=== PATIENT | female | born 1935 | race Caucasian/White ===

== ENCOUNTER 2017-12-12 09:53 | Day surgery (SDC) | payer OTHER ==
[2017-12-12] MEDS ORDERED: LIDOCAINE 2% MPF 5 ML VIAL ONE (10:18)
[2017-12-12] MEDS ORDERED: PHENYLEPHRINE 10% OPTH 5ML ONE (10:18)
[2017-12-12] MEDS ORDERED: CYCLOPENTOLATE 1% OPTH 2 ML ONE (10:18)
[2017-12-12] MEDS ORDERED: TETRACAINE HCL 0.5% 2ML OPTH ONE (10:18)
[2017-12-12] MEDS ORDERED: NA CHLORIDE 0.9% 500 ML ONE (10:18)
[2017-12-12] MEDS ORDERED: BUPIVACAINE 0.25% PF 10 ML VIAL ONE (10:18)
[2017-12-12] MEDS ORDERED: EPINEPHRINE/PF 1 MG/ML AMP ONE ×2 (10:33→13:04)
[2017-12-12] MEDS ORDERED: NS 0.9% VIAL 10 ML ONE (10:33)
[2017-12-12] MEDS ORDERED: MOXIFLOXACIN HCL 10 DROPS/ML **OR USE OPTH ONE (10:34)
[2017-12-12] MEDS ORDERED: DUOVISC 1 KIT OPTH ONE (10:34)
[2017-12-12] MEDS ORDERED: BSS PLUS 500 ML BOTTLE IRR ONE (10:34)
[2017-12-12] MEDS ORDERED: PHENYLEPHRINE 10% OPTH 5ML OPTH ONE ×2 (10:38→10:43)
[2017-12-12] MEDS ORDERED: CYCLOPENTOLATE 1% OPTH 2 ML OPTH ONE ×2 (10:38→10:43)
[2017-12-12] MEDS ORDERED: PROPOFOL 200 MG/20 ML VIAL IV ONE (10:51)
--- NOTE | 2017-12-12 12:04 | P.BOP ---
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
--- NOTE | 2017-12-12 22:43 | OP ---
Date of Procedure: 12/12/2017 Surgeon: Dolly Chew MD Anesthesiologist: 1. Bennie Flores CRNA. 2. Romain Puente M.D. Preoperative Diagnoses: Nuclear sclerotic cataract and Fuchs dystrophy, left eye. Operation Performed: Phacoemulsification with intraocular lens implant, left eye. Anesthesia: Per cataract surgery. Complications: None. Description Of Procedure: In day surgery, the patient was prepped with Betadine and draped. A conjunctival incision was made in the inferior nasal quadrant with Jayden scissors. A sub-Tenon block consisting of a 1:1 mixture of 2% Xylocaine and 0.25% bupivacaine was placed through the conjunctival incision with a blunt cannula. A Honan balloon was placed over the eye and the patient was transferred to the operating room. In the operating room the patient was prepped and draped in the usual sterile fashion for ophthalmic surgery. A lid speculum was placed in the left eye. Two paracentesis sites were made superiorly and inferiorly in the limbal cornea. Viscoat was placed in the anterior chamber and a crescent blade was used to make a corneal groove and tunnel, and a keratome was used to enter the anterior chamber. Provisc was placed in the anterior chamber and a 360 degree capsulotomy was performed with a cystitome. The lens was hydrodissected with BSS and rotated freely. The lens was removed with a stop and chop technique. 13.65 phaco CDE was used to remove the lens. Residual cortex was removed with the irrigation and aspiration. Provisc was placed in the capsular bag. A ZCB00 +23.0 diopter lens was placed in the capsular bag without complications. Irrigation and aspiration was used to remove residual viscoelastic. The paracentesis sites were hydrated with BSS. The wound and paracentesis sites were inspected and found to be watertight. Vigamox 0.07 cc was placed intracamerally at the end of the procedure. The eye was irrigated with balanced salt solution. The eye was patched with a soft cotton patch and Noel metal shield. The patient was returned to day surgery in good condition. Comments: Scleral incision was created after incising the temporal conjunctiva with Jayden scissors. 1:5000 preservative-free epinephrine was placed in the anterior chamber prior to Viscoat. BSS Plus was used. The conjunctiva was reapproximated with cautery at the end of the procedure. Discharge Instructions: Ms. Murillo is discharged to home in good condition and is to follow up with Dr. Chew in the morning. GATO/ASHU Voice ID: [id number] Report ID: [id number] MTDD
== END 2017-12-12 12:50 | disposition home or self-care (01) ==
LOC: OR 09:53
PROVIDERS: ATTEND Ophthalmology Retina Specialist
PROC: 08RK3JZ Replacement of Left Lens with Synthetic Substitute, Percutaneous Approach (ICD-10-PCS; principal; 2017-12-12 10:30)
DX: H25.12 Age-related nuclear cataract, left eye (principal); H18.51 Endothelial corneal dystrophy; H40.10X0 Unspecified open-angle glaucoma, stage unspecified
CPT/HCPCS: 66984; J0171 ×2

== ENCOUNTER 2018-01-23 06:58 | Day surgery (SDC) | payer OTHER ==
[2018-01-23] MEDS ORDERED: TETRACAINE HCL 0.5% 2ML OPTH ONE (07:06)
[2018-01-23] MEDS ORDERED: BUPIVACAINE 0.25% PF 10 ML VIAL ONE (07:06)
[2018-01-23] MEDS ORDERED: CYCLOPENTOLATE 1% OPTH 2 ML ONE (07:06)
[2018-01-23] MEDS ORDERED: NA CHLORIDE 0.9% 500 ML ONE (07:06)
[2018-01-23] MEDS ORDERED: PHENYLEPHRINE 10% OPTH 5ML ONE (07:06)
[2018-01-23] MEDS ORDERED: LIDOCAINE 1% MPF 5 ML VIAL ONE ×2 (07:12→07:17)
[2018-01-23] MEDS ORDERED: PHENYLEPHRINE 10% OPTH 5ML OPTH ONE ×2 (07:24→07:34)
[2018-01-23] MEDS ORDERED: CYCLOPENTOLATE 1% OPTH 2 ML OPTH ONE ×2 (07:24→07:34)
[2018-01-23] MEDS ORDERED: NS 0.9% VIAL 10 ML ONE (07:59)
[2018-01-23] MEDS ORDERED: DUOVISC 1 KIT OPTH ONE (08:02)
[2018-01-23] MEDS ORDERED: MOXIFLOXACIN HCL 10 DROPS/ML **OR USE OPTH ONE (08:02)
[2018-01-23] MEDS ORDERED: LIDOCAINE 2% INJ, MPF 2 ML 3 ML ONE (08:10)
[2018-01-23] MEDS ORDERED: LIDOCAINE 2% INJ, MPF 2 ML 2 ML ONE (08:13)
[2018-01-23] MEDS ORDERED: PROPOFOL 200 MG/20 ML VIAL IV ONE (08:13)
[2018-01-23] MEDS: EPINEPHRINE/PF 1 MG/ML AMP ONE ×2 (08:16→08:30)
[2018-01-23] MEDS ORDERED: BSS PLUS 500 ML BOTTLE IRR ONE (08:35)
--- NOTE | 2018-01-23 09:00 | P.BOP ---
Preoperative diagnosis: Nuclear sclerotic cataract and Fuch's dystrophy OD Postoperative diagnosis: Same Primary procedure: Phacoemulsification with IOL OD Estimated blood loss: None Anesthesia: Local (Subtenon's infusion with anesthesia for cataract surgery.) Complications: None Implants: ZCB00 +23.0 Transferred to: Other (Day surgery) Condition: Good
--- NOTE | 2018-01-23 20:37 | OP ---
Date of Procedure: 01/23/2018 Surgeon: Dolly Chew MD Anesthesiologist: 1. Roxy Carlos CRNA. 2. Romain Puente M.D. Preoperative Diagnosis: Nuclear sclerotic cataract, and Fuchs dystrophy, OD ( right eye). Operation Performed: Phacoemulsification with intraocular lens implant, right eye. Anesthesia: Per cataract surgery. Complications: None. Description Of Procedure: In day surgery, the patient was prepped with Betadine and draped. A conjunctival incision was made in the inferior nasal quadrant with Jayden scissors. A sub-Tenon block consisting of a 1:1 mixture of 2% Xylocaine and 0.25% bupivacaine was placed through the conjunctival incision with a blunt cannula. A Honan balloon was placed over the eye and the patient was transferred to the operating room. In the operating room the patient was prepped and draped in the usual sterile fashion for ophthalmic surgery. A lid speculum was placed in the right eye. Two paracentesis sites were made superiorly and inferiorly in the limbal cornea. Viscoat was placed in the anterior chamber and a crescent blade was used to make a corneal groove and tunnel, and a keratome was used to enter the anterior chamber. Provisc was placed in the anterior chamber and a 360 degree capsulotomy was performed with a cystitome. The lens was hydrodissected with BSS and rotated freely. The lens was removed with a stop and chop technique. 10.35 phaco CDE was used to remove the lens. Residual cortex was removed with the irrigation and aspiration. Provisc was placed in the capsular bag. A ZCB00 +23.0 lens was placed in the capsular bag without complications. Irrigation and aspiration were used to remove residual viscoelastic. The paracentesis sites were hydrated with BSS. The wound and paracentesis sites were inspected and found to be watertight. Vigamox 0.07 cc was placed intracamerally at the end of the procedure. The eye was irrigated with balanced salt solution. The eye was patched with a soft cotton patch and Noel metal shield. The patient was returned to day surgery in good condition. Comments: A conjunctival incision was created with Jayden scissors. Bipolar cautery was used for hemostasis. A scleral incision was created with a crescent blade. BSS Plus was used, 1:5000 preservative-free epinephrine was used prior to Viscoat. Extra Viscoat was used. Discharge Instructions: Ms. Murillo is discharged to home in good condition and is to follow up with Dr. Chew this afternoon. GATO/ASHU Voice ID: [id number] Report ID: [id number] MTDD
== END 2018-01-23 09:38 | disposition home or self-care (01) ==
LOC: OR 06:58
PROVIDERS: ATTEND Ophthalmology Retina Specialist
PROC: 08RJ3JZ Replacement of Right Lens with Synthetic Substitute, Percutaneous Approach (ICD-10-PCS; principal; 2018-01-23 08:30)
DX: H25.11 Age-related nuclear cataract, right eye (principal); H18.51 Endothelial corneal dystrophy; H40.10X0 Unspecified open-angle glaucoma, stage unspecified
CPT/HCPCS: 36415; 66984; 84132; J0171; J3490 ×2

== ENCOUNTER 2018-10-02 08:18 | Emergency (ER) | payer OTHER ==
--- NOTE | 2018-10-02 08:44 | EKG ---
Test Date: 2018-10-02 Test Time: 08:28:11 Reeling Operator: EFFIE MEASUREMENT RESULTS: Intervals: Rate: 73 MA: 182 QRSD: 108 QT: 378 QTc: 416 Liberty: P: 49 MA: 182 QRS: -48 T: 39 INTERPRETIVE STATEMENTS: Normal sinus rhythm Incomplete right bundle branch block Left anterior fascicular block Moderate voltage criteria for LVH, may be normal variant Abnormal ECG No previous ECG available for comparison Electronically Signed On 10-02-18 08:44:15 CDT by Jonah Puga
[2018-10-02 08:50] LABS: Absolute Monocytes 0.3 K/uL (0.1-1.3); Absolute Neutrophil 1.8 K/uL (1.8-8.0); Basophils % 1.1 % (0-1.3); Eosinophils % 4.1 % (0-4.4); Hematocrit 36.2 % (36.0-45.0); Lymphocytes % 30.6 % (15.3-44.8); MPV 8.5 fL (7.6-11.3); Monocytes % 9.2 % (3.3-12.3); Protime INR 1.01; RBC Red Blood Cell Count 3.95 M/uL (3.86-4.86)
--- NOTE | 2018-10-02 08:50 | RAD REPORT ---
EXAM DESCRIPTION: CT - Ct Stroke Brain Wo Cont - 10/02/2018 8:43 am CLINICAL HISTORY: dizziness, tingling to right side of lips that has resolved CVA symptomology COMPARISON: No comparisons TECHNIQUE: All CT scans are performed using dose optimization technique as appropriate and may inclu de automated exposure control or mA/KV adjustment according to patient size. FINDINGS: No intracranial hemorrhage, hydrocephalus or extra-axial fluid collection.Moderate brain a trophyNo areas of brain edema or evidence of midline shift. The paranasal sinuses and mastoids are clear. The calvarium is intact. IMPRESSION: No acute intracranial abnormality. The findings were discussed with Vivien in the ER on 10/02/2018 at 8:45 am by telephone.
[2018-10-02] MEDS ORDERED: NA CHLORIDE 0.9% 500 ML ONE (09:00)
[2018-10-02] MEDS ORDERED: NA CHLORIDE 0.9% 1,000 ML ONE (09:00)
[2018-10-02] MEDS ORDERED: FOLIC ACID 5 MG/ML VIAL ONE (09:01)
--- NOTE | 2018-10-02 09:03 | RAD REPORT ---
EXAM DESCRIPTION: RAD - Chest Single View - 10/02/2018 8:54 am CLINICAL HISTORY: COUGH Chest pain. COMPARISON: No comparisons FINDINGS: Portable technique limits examination quality. The lungs are grossly clear. The heart is mildly enlarged in size. No displaced fractures. IMPRESSION: No acute intrathoracic process suspected.
[2018-10-02 09:06] LABS: ALT/SGPT 16 U/L (12-78); AST/SGOT 13 U/L (15-37); Albumin 3.6 g/dL (3.4-5.0); Alkaline Phosphatase 111 U/L (45-117); BUN Blood Urea Nitrogen 15 mg/dL (7-18); Bicarbonate 28 mmol/L (21-32); Bilirubin Direct < 0.1 mg/dL (0-0.2); Bilirubin Total 0.3 mg/dL (0.2-1.0); Glucose Level 152 mg/dL (74-106); Lipase 209 U/L (73-393); NT PRO-BNP 109 pg/mL (<450); Potassium 3.7 mmol/L (3.5-5.1); Protein, Total 6.6 g/dL (6.4-8.2); Sodium Level 141 mmol/L (136-145); Troponin (Emerg Dept Use Only) < 0.02 ng/mL (0.0-0.045)
[2018-10-02] MEDS ORDERED: ALTEPLASE 100 ML IV ONE (09:32)
[2018-10-02] MEDS ORDERED: NA CHLORIDE 0.9% 100 ML IV ONE (09:34)
--- NOTE | 2018-10-02 09:42 | ER ---
Nurse's Notes [facility] Name: Lina Murillo Age: 83 yrs Sex: Female : 1935 Arrival Date: 10/02/2018 Time: 08:23 Bed 8 Private MD: Diagnosis: Cerebral infarction;Dizziness and giddiness;Essential (primary) hypertension Presentation: 10/02 08:23 Presenting complaint: Patient states: "Around 7:30 am I was sitting down eating aa5 breakfast when I started feeling weak all over, nauseated, dizzy, the right side of my lips were tingling, and I had the shakes so I drank some orange juice but I still feel dizzy". Pt only c/o dizziness at this times. EMS reports BP 208/83. 08:23 Transition of care: patient was not received from another setting of care. Onset of aa5 symptoms was October 02, 2018. Risk Assessment: Do you want to hurt yourself or someone else? Patient reports no desire to harm self or others. Initial Sepsis Screen: Does the patient meet any 2 criteria? No. Patient's initial sepsis screen is negative. Does the patient have a suspected source of infection? No. Patient's initial sepsis screen is negative. Care prior to arrival: IV initiated. 18 GA, in the right antecubital area, Glucose check: 140. 08:23 Acuity: ESTEFANY 2 aa5 08:23 Method Of Arrival: EMS: [facility] aa5 08:30 An acute neurological deficit is present. The patients blood glucose was checked before aa5 arriving to the hospital and was found to be normal. Triage Assessment: 08:23 The onset of the patients symptoms was October 02, 2018 at 07:30. aa5 Stroke Activation: Symptom onset < 3 hours Physician: Stroke Attending; Name: ; Notified At: ; Arrived At: Physician: Chief Stroke Resident; Name: ; Notified At: ; Arrived At: Physician: Stroke Resident; Name: ; Notified At: ; Arrived At: Physician: ED Attending; Name: ; Notified At: ; Arrived At: Physician: ED Resident; Name: ; Notified At: ; Arrived At: Historical: - Allergies: 08:23 No Known Allergies; aa5 - PMHx: 08:23 None; aa5 - Immunization history:: Adult Immunizations unknown. - Social history:: Smoking status: Patient/guardian denies using tobacco. - Ebola Screening: : No symptoms or risks identified at this time. - Family history:: not pertinent. Screenin:33 Abuse screen: Denies threats or abuse. Nutritional screening: No deficits noted. aa5 Tuberculosis screening: No symptoms or risk factors identified. Fall Risk IV access (20 points). Total Myers Fall Scale indicates No Risk (0-24 pts). Assessment: 08:23 VAN Scoring: Arm Drift: Patients demonstrates NO arm weakness. Patient is VAN Negative. aa5 08:23 General: Appears comfortable, Behavior is calm, cooperative. Pain: Denies pain. Neuro: aa5 Level of Consciousness is awake, alert, obeys commands, Oriented to person, place, time, situation, Plugger are equal bilaterally Moves all extremities. Speech is normal, Facial symmetry appears normal, Pupils are PERRLA, Reports dizziness. Pt currently denies numbness, denies tingling, denies headache. . Cardiovascular: Heart tones S1 S2 present Rhythm is regular. Respiratory: Airway is patent Respiratory effort is even, unlabored, Respiratory pattern is regular, symmetrical. GI: Patient currently denies nausea, vomiting. : No signs and/or symptoms were reported regarding the genitourinary system. EENT: No signs and/or symptoms were reported regarding the EENT system. Derm: Skin is pink, warm \\T\\ dry. Musculoskeletal: Range of motion: intact in all extremities. 08:33 Reassessment: PT SPEECH ACUTELY SLURRED, CODE STROKE ACTIVATED. bp 08:35 Reassessment: Pt taken to CT via stretcher accompanied by me. Speech is clear at this aa5 time. . 08:45 Reassessment: Pt back from CT. X-ray at bedside . aa5 08:45 Reassessment: Patient is alert, oriented x 3, equal unlabored respirations, skin aa5 warm/dry/pink. 08:50 Patient has been NPO before screening. The patient is alert, and able to follow aa5 commands. slurred speech has resolved. The patient is not exhibiting difficulty speaking. The patient does not exhibit difficulty understanding words. The patient is able to swallow own secretions with no drooling or need for suction. Patient tolerated one teaspoon of water. No drooling, immediate coughing, gurgling, or clearing of the throat was noted. The patient tolerated 90mL of water. No drooling, immediate coughing, gurgling, or clearing of the throat was noted. The patient passed the bedside swallow screening. Oral medications may be given as ordered. Contact Physician for further diet orders. Provider notified of bedside swallow screening results: Romie Cardozo MD. 09:00 Reassessment: Dr. Cardozo at bedside. . aa5 09:00 T-PA (Activase) Screening: Indications: No evidence of intracranial hemorrhage or CT of aa5 head and no evidence of peripheral hemorrhage or recent CVA: Yes. 09:15 Reassessment: Attempted to ambulate pt per MD. Pt with unsteady gait, only able to aa5 ambulate a few steps. Pt placed back in bed. MD was notified. . 09:30 Reassessment: BP > 190 systolic, TPA on hold per MD. Attempting to lower BP before aa5 administration. . 09:40 Reassessment: Consent fot TPA administration signed by pt's daughter . aa5 10:00 Reassessment: Patient is alert, oriented x 3, equal unlabored respirations, skin aa5 warm/dry/pink. Patient states feeling better. Pt reports dizziness has improved . 10:11 Reassessment: Report given to life flight . aa5 10:11 Reassessment: Pt left ER before MRI and US could be completed, MD notified . aa5 Vital Signs: 08:25 BP 189 / 95; Pulse 79; Resp 18 S; Temp 98.3(O); Pulse Ox 97% on R/A; Weight 58.06 kg aa5 (R); Height 5 ft. 4 in. (162.56 cm) (R); Pain 0/10; 08:48 BP 186 / 82; Pulse 83; Resp 16 S; Pulse Ox 98% on R/A; aa5 09:00 BP 203 / 90; Pulse 77; Resp 16; Pulse Ox 98% on R/A; aa5 09:10 BP 192 / 75; Pulse 70; Resp 18 S; Pulse Ox 100% on R/A; aa5 09:15 Weight 58 kg (M); aa5 09:25 BP 204 / 85; Pulse 62; Resp 16 S; Pulse Ox 98% on R/A; aa5 09:35 BP 185 / 66; Pulse 67; Resp 18 S; Pulse Ox 98% on R/A; aa5 09:40 BP 182 / 65; Pulse 68; Resp 16; Pulse Ox 98% on R/A; aa5 09:50 BP 170 / 98; Pulse 64; Resp 18; Pulse Ox 99% on R/A; aa5 09:58 BP 199 / 77; Pulse 63; Resp 16 S; Pulse Ox 99% on R/A; aa5 10:06 BP 183 / 67; Pulse 60; Resp 16 S; Pulse Ox 97% on R/A; aa5 10:12 BP 188 / 81; Pulse 60; Resp 16 S; Pulse Ox 98% on R/A; aa5 09:15 Body Mass Index 21.95 (58.00 kg, 162.56 cm) aa5 09:40 BP decreased, Dr. Cardozo notified and order to admister TPA now. aa5 09:58 notified of increasing BP, see MAR for order. aa5 NIH Stroke Scale Scores: 08:23 NIHSS Score: 0 aa5 08:45 NIHSS Score: 0 aa5 09:15 NIHSS Score: 2 aa5 09:39 NIHSS Score: 4 marie 10:00 NIHSS Score: 0 aa5 ED Course: 08:23 Patient arrived in ED. bp 08:23 Arm band placed on Patient placed in an exam room, on a stretcher. aa5 08:23 Patient has correct armband on for positive identification. Placed in gown. Bed in low aa5 position. Call light in reach. Side rails up X2. product line manager on. Pulse ox on. NIBP on. 08:23 Maintain EMS IV. Dressing intact. Good blood return noted. Site clean \\T\\ dry. Gauge \\T\\ bp site: 18 GAUGE R AC. 08:25 Romie Cardozo MD is Attending Physician. marie 08:26 Irina Roche, RN is Primary Nurse. aa5 08:28 EKG done, by technical product manager. reviewed by Romie Cardozo MD. at1 08:29 Triage completed. aa5 08:33 Initial lab(s) drawn, by ED staff, sent to lab. aa5 08:43 CT Stroke Brain w/o Contrast In Process Unspecified. EDMS 08:51 X-ray completed. Portable x-ray completed in exam room. Patient tolerated procedure sw well. 08:52 XRAY Chest (1 view) In Process Unspecified. EDMS 09:53 Inserted saline lock: 20 gauge in left antecubital area, using aseptic technique. em1 10:17 No provider procedures requiring assistance completed. Patient transferred, IV remains aa5 in place. Administered Medications: 08:45 Drug: NS 0.9% 500 ml Route: IV; Rate: bolus; Site: right antecubital; bp 09:15 Follow up: IV Status: Completed infusion; IV Intake: 500ml aa5 08:45 Drug: NS 0.9% 1000 ml Route: IV; Rate: 125 ml/hr; Site: right antecubital; bp 10:20 Follow up: IV Status: Infusion continued upon transfer aa5 08:45 Drug: foLIC Acid 1 mg Route: IVPB; Site: right antecubital; bp 09:23 CANCELLED (Duplicate Order): Aspirin Chewable Tablet 162 mg PO once marie 09:32 Drug: Trandate 10 mg Route: IVP; Site: right antecubital; aa5 09:40 Follow up: Response: No adverse reaction; No adverse reaction. BP decreased. aa5 09:35 Drug: Pepcid 20 mg Route: IVP; Site: right antecubital; aa5 09:45 Follow up: Response: No adverse reaction aa5 09:42 Drug: ACTIvase {Co-Signature: bp (Jeffery Jenkins RN).} {Note: to right AC. Administered aa5 5.2mg as bolus and 47mg infused over 1 hr. .} Route: IV Thrombolytics; Rate: calculated rate; Infused Over: 60 mins; 10:12 Follow up: Response: No adverse reaction; No adverse reaction. Infusion continued upon aa5 transfer 09:53 Not Given (Physician Discretion): Trandate 20 mg IVP once; Over 2 minutes aa5 10:01 Drug: Labetalol 10 mg Route: IVP; Site: left antecubital; aa5 10:06 Follow up: Response: No adverse reaction; No adverse reaction. BP decreased. aa5 Point of Care Testing: Blood Glucose: 08:35 Blood Glucose: 190 mg/dL; aa5 Ranges: Intake: 09:15 IV: 500ml; Total: 500ml. aa5 Outcome: 09:41 ER care complete, transfer ordered by . [facility] 10:17 Transferred by helicopter to [facility], Transfer form completed. aa5 X-rays sent w/ patient. 10:17 Condition: stable 10:17 Discharge instructions given to patient, family, Instructed on the need for transfer, Demonstrated understanding of instructions. 10:20 Patient left the ED. aa5 NIH Stroke Scale - NIH Stroke Score Date: 10/02/2018 Time: 08:23 Total Score = 0 1a. Level of Consciousness (LOC) - 0(Alert) 1b. Level of Consciousness (LOC) (Year \\T\\ Age) - 0(Both) 1c. LOC Commands (Open \\T\\ Closes Eyes/Multi Purpose Machine Operator) - 0(Both) 2. Best Gaze (Lateral Gaze Paresis) - 0(Normal) 3. Visual Field Loss - 0(No visual loss) 4. Facial Palsy - 0(Normal) 5a. Left Arm: Motor (10-second hold) - 0(No drift) 5b. Right Arm: Motor (10-second hold) - 0(No drift) 6a. Left Leg: Motor (5-second hold - always test supine) - 0(No drift) 6b. Right Leg: Motor (5-second hold - always test supine) - 0(No drift) 7. Limb Ataxia (finger/nose \\T\\ heel/morales - test with eyes open) - 0(Absent) 8. Sensory Loss (pinprick arms/legs/face) - 0(Normal) 9. Best Language: Aphasia (description/naming/reading) - 0(No aphasia) 10. Dysarthria (speech clarity - read or repeat words) - 0(Normal) 11. Extinction and Inattention (visual/tactile/auditory/spatial/personal) - 0(No abnormality) Initials: aa5 NIH Stroke Scale - NIH Stroke Score Date: 10/02/2018 Time: 08:45 Total Score = 0 1a. Level of Consciousness (LOC) - 0(Alert) 1b. Level of Consciousness (LOC) (Year \\T\\ Age) - 0(Both) 1c. LOC Commands (Open \\T\\ Closes Eyes/Multi Purpose Machine Operator) - 0(Both) 2. Best Gaze (Lateral Gaze Paresis) - 0(Normal) 3. Visual Field Loss - 0(No visual loss) 4. Facial Palsy - 0(Normal) 5a. Left Arm: Motor (10-second hold) - 0(No drift) 5b. Right Arm: Motor (10-second hold) - 0(No drift) 6a. Left Leg: Motor (5-second hold - always test supine) - 0(No drift) 6b. Right Leg: Motor (5-second hold - always test supine) - 0(No drift) 7. Limb Ataxia (finger/nose \\T\\ heel/morales - test with eyes open) - 0(Absent) 8. Sensory Loss (pinprick arms/legs/face) - 0(Normal) 9. Best Language: Aphasia (description/naming/reading) - 0(No aphasia) 10. Dysarthria (speech clarity - read or repeat words) - 0(Normal) 11. Extinction and Inattention (visual/tactile/auditory/spatial/personal) - 0(No abnormality) Initials: aa5 NIH Stroke Scale - NIH Stroke Score Date: 10/02/2018 Time: 09:15 Total Score = 2 1a. Level of Consciousness (LOC) - 0(Alert) 1b. Level of Consciousness (LOC) (Year \\T\\ Age) - 0(Both) 1c. LOC Commands (Open \\T\\ Closes Eyes/Multi Purpose Machine Operator) - 0(Both) 2. Best Gaze (Lateral Gaze Paresis) - 0(Normal) 3. Visual Field Loss - 0(No visual loss) 4. Facial Palsy - 0(Normal) 5a. Left Arm: Motor (10-second hold) - 0(No drift) 5b. Right Arm: Motor (10-second hold) - 0(No drift) 6a. Left Leg: Motor (5-second hold - always test supine) - 0(No drift) 6b. Right Leg: Motor (5-second hold - always test supine) - 0(No drift) 7. Limb Ataxia (finger/nose \\T\\ heel/morales - test with eyes open) - 2(Present in two limbs) 8. Sensory Loss (pinprick arms/legs/face) - 0(Normal) 9. Best Language: Aphasia (description/naming/reading) - 0(No aphasia) 10. Dysarthria (speech clarity - read or repeat words) - 0(Normal) 11. Extinction and Inattention (visual/tactile/auditory/spatial/personal) - 0(No abnormality) Initials: aa5 NIH Stroke Scale - NIH Stroke Score Date: 10/02/2018 Time: 09:39 Total Score = 4 1a. Level of Consciousness (LOC) - 0(Alert) 1b. Level of Consciousness (LOC) (Year \\T\\ Age) - 0(Both) 1c. LOC Commands (Open \\T\\ Closes Eyes/Multi Purpose Machine Operator) - 0(Both) 2. Best Gaze (Lateral Gaze Paresis) - 0(Normal) 3. Visual Field Loss - 0(No visual loss) 4. Facial Palsy - 0(Normal) 5a. Left Arm: Motor (10-second hold) - 1(Drift) 5b. Right Arm: Motor (10-second hold) - 0(No drift) 6a. Left Leg: Motor (5-second hold - always test supine) - 1(Drift) 6b. Right Leg: Motor (5-second hold - always test supine) - 0(No drift) 7. Limb Ataxia (finger/nose \\T\\ heel/morales - test with eyes open) - 2(Present in two limbs) 8. Sensory Loss (pinprick arms/legs/face) - 0(Normal) 9. Best Language: Aphasia (description/naming/reading) - 0(No aphasia) 10. Dysarthria (speech clarity - read or repeat words) - 0(Normal) 11. Extinction and Inattention (visual/tactile/auditory/spatial/personal) - 0(No abnormality) Initials: [facility] NIH Stroke Scale - NIH Stroke Score Date: 10/02/2018 Time: 10:00 Total Score = 0 1a. Level of Consciousness (LOC) - 0(Alert) 1b. Level of Consciousness (LOC) (Year \\T\\ Age) - 0(Both) 1c. LOC Commands (Open \\T\\ Closes Eyes/Multi Purpose Machine Operator) - 0(Both) 2. Best Gaze (Lateral Gaze Paresis) - 0(Normal) 3. Visual Field Loss - 0(No visual loss) 4. Facial Palsy - 0(Normal) 5a. Left Arm: Motor (10-second hold) - 0(No drift) 5b. Right Arm: Motor (10-second hold) - 0(No drift) 6a. Left Leg: Motor (5-second hold - always test supine) - 0(No drift) 6b. Right Leg: Motor (5-second hold - always test supine) - 0(No drift) 7. Limb Ataxia (finger/nose \\T\\ heel/morales - test with eyes open) - 0(Absent) 8. Sensory Loss (pinprick arms/legs/face) - 0(Normal) 9. Best Language: Aphasia (description/naming/reading) - 0(No aphasia) 10. Dysarthria (speech clarity - read or repeat words) - 0(Normal) 11. Extinction and Inattention (visual/tactile/auditory/spatial/personal) - 0(No abnormality) Initials: aa5 Signatures: Dispatcher [employer] EDMS Romie Cardozo MD MD cha Martinez, Joel em1 Irina Roche, RN RN aa5 Nicole Stack, design studio consultant EKG Tat1 Jessika Amos Brian, RN RN bp Jeffery Jenkins RN bp Corrections: (The following items were deleted from the chart) 08:32 08:23 Presenting complaint: Patient states: "I was sitting down eating aa5 breakfast when I started feeling weak all over, nauseated, dizzy, the right side of my lips were tingling, and I had the shakes so I drank some orange juice but I still feel dizzy". Pt only c/o dizziness at this times. aa5 08:23 Care prior to arrival: None. aa5 08:42 08:23 Presenting complaint: Patient states: "I was sitting down eating aa5 breakfast when I started feeling weak all over, nauseated, dizzy, the right side of my lips were tingling, and I had the shakes so I drank some orange juice but I still feel dizzy". Pt only c/o dizziness at this times. EMS reports BP 208/83 aa5 08:48 08:41 Blood Glucose: Blood Glucose Sdlrbhb=265 mg/dL. bp aa5 08:49 08:35 Reassessment: Pt taken to CT via stretcher accompanied by me . aa5 09:49 03:20 Trandate 10 mg IVP in right antecubital aa5 10:28 10:20 BP 192 / 75; Pulse 70bpm; Resp 18bpm; Spontaneous; Pulse Ox 100% RA; aa5 10:32 10:31 Patient left the ED. aa5
--- NOTE | 2018-10-02 09:42 | EDPHYS ---
Physician Documentation [facility] Name: Lina Murillo Age: 83 yrs Sex: Female : 1935 Arrival Date: 10/02/2018 Time: 08:23 Bed 8 Private MD: ED Physician Romie Cardozo HPI: 10/02 09:14 This 83 yrs old Female presents to ER via EMS with complaints of Dizziness, marie General Weakness. 09:14 The patient presents with dizziness, lightheadedness, feeling off balance, sense of marie spinning. Onset: The symptoms/episode began/occurred 2 hour(s) ago. Context: occurred at home. Modifying factors: The symptoms are alleviated by nothing, the symptoms are aggravated by nothing. Associated signs and symptoms: Pertinent positives: ataxia, nausea, tingling. Severity of symptoms: At their worst the symptoms were moderate in the emergency department the symptoms have improved moderately. Patient's baseline: Neuro: alert and fully oriented. The patient has not experienced similar symptoms in the past. Historical: - Allergies: 08:23 No Known Allergies; aa5 - PMHx: 08:23 None; aa5 - Immunization history:: Adult Immunizations unknown. - Social history:: Smoking status: Patient/guardian denies using tobacco. - Ebola Screening: : No symptoms or risks identified at this time. - Family history:: not pertinent. ROS: 09:14 Constitutional: Negative for fever, chills, and weight loss, Eyes: Negative for injury, marie pain, redness, and discharge, ENT: Negative for injury, pain, and discharge, Neck: Negative for injury, pain, and swelling, Cardiovascular: Negative for chest pain, palpitations, and edema, Respiratory: Negative for shortness of breath, cough, wheezing, and pleuritic chest pain, Abdomen/GI: Negative for abdominal pain, nausea, vomiting, diarrhea, and constipation, Back: Negative for injury and pain, : Negative for injury, bleeding, discharge, and swelling, MS/Extremity: Negative for injury and deformity, Skin: Negative for injury, rash, and discoloration, Psych: Negative for depression, anxiety, suicide ideation, homicidal ideation, and hallucinations, Allergy/Immunology: Negative for hives, rash, and allergies, Endocrine: Negative for neck swelling, polydipsia, polyuria, polyphagia, and marked weight changes, Hematologic/Lymphatic: Negative for swollen nodes, abnormal bleeding, and unusual bruising. 09:14 Neuro: Positive for dizziness, gait disturbance, speech changes. Exam: 09:14 Constitutional: This is a well developed, well nourished patient who is awake, alert, marie and in no acute distress. Head/Face: Normocephalic, atraumatic. Eyes: Pupils equal round and reactive to light, extra-ocular motions intact. Lids and lashes normal. Conjunctiva and sclera are non-icteric and not injected. Cornea within normal limits. Periorbital areas with no swelling, redness, or edema. ENT: Nares patent. No nasal discharge, no septal abnormalities noted. Tympanic membranes are normal and external auditory canals are clear. Oropharynx with no redness, swelling, or masses, exudates, or evidence of obstruction, uvula midline. Mucous membranes moist. Neck: Trachea midline, no thyromegaly or masses palpated, and no cervical lymphadenopathy. Supple, full range of motion without nuchal rigidity, or vertebral point tenderness. No Meningismus. Chest/axilla: Normal chest wall appearance and motion. Nontender with no deformity. No lesions are appreciated. Cardiovascular: Regular rate and rhythm with a normal S1 and S2. No gallops, murmurs, or rubs. Normal PMI, no JVD. No pulse deficits. Respiratory: Lungs have equal breath sounds bilaterally, clear to auscultation and percussion. No rales, rhonchi or wheezes noted. No increased work of breathing, no retractions or nasal flaring. Abdomen/GI: Soft, non-tender, with normal bowel sounds. No distension or tympany. No guarding or rebound. No evidence of tenderness throughout. Back: No spinal tenderness. No costovertebral tenderness. Full range of motion. Skin: Warm, dry with normal turgor. Normal color with no rashes, no lesions, and no evidence of cellulitis. MS/ Extremity: Pulses equal, no cyanosis. Neurovascular intact. Full, normal range of motion. Neuro: Awake and alert, GCS 15, oriented to person, place, time, and situation. Cranial nerves II-XII grossly intact. Motor strength 5/5 in all extremities. Sensory grossly intact. Cerebellar exam normal. Normal gait. Psych: Awake, alert, with orientation to person, place and time. Behavior, mood, and affect are within normal limits. 09:14 Neuro: Orientation: is normal, appropriate for stated age, no acute changes, Mentation: is normal, appropriate for stated age, no acute changes, Memory: is normal, appropriate for stated age, no acute changes, Cranial nerves: grossly normal, is grossly normal based on the patient's age, no acute changes, Cerebellar function: is grossly normal, is grossly normal based on the patient's age, no acute changes, Motor: is normal, Sensation: no obvious gross deficits, appropriate no acute changes, Gait: is unsteady, ataxic, Babinski testing is normal. Vital Signs: 08:25 BP 189 / 95; Pulse 79; Resp 18 S; Temp 98.3(O); Pulse Ox 97% on R/A; Weight 58.06 kg aa5 (R); Height 5 ft. 4 in. (162.56 cm) (R); Pain 0/10; 08:48 BP 186 / 82; Pulse 83; Resp 16 S; Pulse Ox 98% on R/A; aa5 09:00 BP 203 / 90; Pulse 77; Resp 16; Pulse Ox 98% on R/A; aa5 09:10 BP 192 / 75; Pulse 70; Resp 18 S; Pulse Ox 100% on R/A; aa5 09:15 Weight 58 kg (M); aa5 09:25 BP 204 / 85; Pulse 62; Resp 16 S; Pulse Ox 98% on R/A; aa5 09:35 BP 185 / 66; Pulse 67; Resp 18 S; Pulse Ox 98% on R/A; aa5 09:40 BP 182 / 65; Pulse 68; Resp 16; Pulse Ox 98% on R/A; aa5 09:50 BP 170 / 98; Pulse 64; Resp 18; Pulse Ox 99% on R/A; aa5 09:58 BP 199 / 77; Pulse 63; Resp 16 S; Pulse Ox 99% on R/A; aa5 10:06 BP 183 / 67; Pulse 60; Resp 16 S; Pulse Ox 97% on R/A; aa5 10:12 BP 188 / 81; Pulse 60; Resp 16 S; Pulse Ox 98% on R/A; aa5 09:15 Body Mass Index 21.95 (58.00 kg, 162.56 cm) aa5 09:40 BP decreased, Dr. Cardozo notified and order to admister TPA now. aa5 09:58 notified of increasing BP, see MAR for order. aa5 NIH Stroke Scale Scores: 08:23 NIHSS Score: 0 aa5 08:45 NIHSS Score: 0 aa5 09:15 NIHSS Score: 2 aa5 09:39 NIHSS Score: 4 marie 10:00 NIHSS Score: 0 aa5 MDM: 08:25 Patient medically screened. marie 09:16 Data reviewed: vital signs, nurses notes, lab test result(s), EKG, radiologic studies, [facility] CT scan, doppler, MRI. 10/02 08:27 Order name: Basic Metabolic Panel [facility] 10/02 08:27 Order name: CBC with Diff [facility] 10/02 08:27 Order name: LFT's; Complete Time: 09:19 marie 10/02 08:27 Order name: Magnesium; Complete Time: 09:19 [facility] 10/02 08:27 Order name: NT PRO-BNP; Complete Time: 09:19 [facility] 10/02 08:27 Order name: PT-INR; Complete Time: 09:19 [facility] 10/02 08:27 Order name: Troponin (emerg Dept Use Only); Complete Time: 09:19 [facility] 10/02 08:27 Order name: Lipase; Complete Time: 09:19 [facility] 10/02 08:27 Order name: Blood Culture Adult (2) [facility] 10/02 08:27 Order name: Procalcitonin; Complete Time: 09:38 [facility] 10/02 08:27 Order name: Lactate; Complete Time: 09:19 [facility] 10/02 08:28 Order name: Basic Metabolic Panel; Complete Time: 09:19 EDMS 10/02 08:28 Order name: CBC with Automated Diff; Complete Time: 09:06 EDMS 10/02 08:27 Order name: XRAY Chest (1 view); Complete Time: 09:06 marie 10/02 08:27 Order name: EKG; Complete Time: 08:29 [facility] 10/02 08:30 Order name: CT Stroke Brain w/o Contrast; Complete Time: 09:06 aa5 10/02 09:07 Order name: PTT, Activated Partial Thromb; Complete Time: 09:19 EDMS 10/02 08:27 Order name: Cardiac monitoring; Complete Time: 08:28 [facility] 10/02 08:27 Order name: EKG - Nurse/Tech; Complete Time: 08:28 [facility] 10/02 08:27 Order name: IV Saline Lock; Complete Time: 08:28 [facility] 10/02 08:27 Order name: Labs collected and sent; Complete Time: 08:41 [facility] 10/02 08:27 Order name: O2 Per Protocol; Complete Time: 08:28 [facility] 10/02 08:27 Order name: O2 Sat Monitoring; Complete Time: 08:28 [facility] 10/02 08:57 Order name: Accucheck; Complete Time: 08:57 [facility] 10/02 08:57 Order name: NPO; Complete Time: 08:57 [facility] 10/02 08:57 Order name: Stroke Swallow Screen; Complete Time: 08:57 aa Administered Medications: 08:45 Drug: NS 0.9% 500 ml Route: IV; Rate: bolus; Site: right antecubital; bp 09:15 Follow up: IV Status: Completed infusion; IV Intake: 500ml aa 08:45 Drug: NS 0.9% 1000 ml Route: IV; Rate: 125 ml/hr; Site: right antecubital; bp 10:20 Follow up: IV Status: Infusion continued upon transfer aa5 08:45 Drug: foLIC Acid 1 mg Route: IVPB; Site: right antecubital; bp 09:23 CANCELLED (Duplicate Order): Aspirin Chewable Tablet 162 mg PO once [facility] 09:32 Drug: Trandate 10 mg Route: IVP; Site: right antecubital; aa5 09:40 Follow up: Response: No adverse reaction; No adverse reaction. BP decreased. aa5 09:35 Drug: Pepcid 20 mg Route: IVP; Site: right antecubital; aa5 09:45 Follow up: Response: No adverse reaction aa5 09:42 Drug: ACTIvase {Co-Signature: bp (Jeffery Jenkins RN).} {Note: to right AC. Administered aa5 5.2mg as bolus and 47mg infused over 1 hr. .} Route: IV Thrombolytics; Rate: calculated rate; Infused Over: 60 mins; 10:12 Follow up: Response: No adverse reaction; No adverse reaction. Infusion continued upon aa transfer 09:53 Not Given (Physician Discretion): Trandate 20 mg IVP once; Over 2 minutes aa5 10:01 Drug: Labetalol 10 mg Route: IVP; Site: left antecubital; aa5 10:06 Follow up: Response: No adverse reaction; No adverse reaction. BP decreased. aa5 Point of Care Testing: Blood Glucose: 08:35 Blood Glucose: 190 mg/dL; aa5 Ranges: Critical Glucose Levels:Adult <50 mg/dl or >400 mg/dl <40 mg/dl or >180 mg/dl Disposition: 10/02/18 09:41 Transfer ordered to [facility]. Diagnosis are Cerebral infarction, Dizziness and giddiness, Essential (primary) hypertension. - Reason for transfer: Higher level of care. - Accepting physician is to dr slater. - Condition is Fair. - Problem is new. - Symptoms have improved. NIH Stroke Scale - NIH Stroke Score Date: 10/02/2018 Time: 08:23 Total Score = 0 1a. Level of Consciousness (LOC) - 0(Alert) 1b. Level of Consciousness (LOC) (Year \T\ Age) - 0(Both) 1c. LOC Commands (Open \T\ Closes Eyes/Body Maker) - 0(Both) 2. Best Gaze (Lateral Gaze Paresis) - 0(Normal) 3. Visual Field Loss - 0(No visual loss) 4. Facial Palsy - 0(Normal) 5a. Left Arm: Motor (10-second hold) - 0(No drift) 5b. Right Arm: Motor (10-second hold) - 0(No drift) 6a. Left Leg: Motor (5-second hold - always test supine) - 0(No drift) 6b. Right Leg: Motor (5-second hold - always test supine) - 0(No drift) 7. Limb Ataxia (finger/nose \T\ heel/morales - test with eyes open) - 0(Absent) 8. Sensory Loss (pinprick arms/legs/face) - 0(Normal) 9. Best Language: Aphasia (description/naming/reading) - 0(No aphasia) 10. Dysarthria (speech clarity - read or repeat words) - 0(Normal) 11. Extinction and Inattention (visual/tactile/auditory/spatial/personal) - 0(No abnormality) Initials: aa5 NIH Stroke Scale - NIH Stroke Score Date: 10/02/2018 Time: 08:45 Total Score = 0 1a. Level of Consciousness (LOC) - 0(Alert) 1b. Level of Consciousness (LOC) (Year \T\ Age) - 0(Both) 1c. LOC Commands (Open \T\ Closes Eyes/Body Maker) - 0(Both) 2. Best Gaze (Lateral Gaze Paresis) - 0(Normal) 3. Visual Field Loss - 0(No visual loss) 4. Facial Palsy - 0(Normal) 5a. Left Arm: Motor (10-second hold) - 0(No drift) 5b. Right Arm: Motor (10-second hold) - 0(No drift) 6a. Left Leg: Motor (5-second hold - always test supine) - 0(No drift) 6b. Right Leg: Motor (5-second hold - always test supine) - 0(No drift) 7. Limb Ataxia (finger/nose \T\ heel/morales - test with eyes open) - 0(Absent) 8. Sensory Loss (pinprick arms/legs/face) - 0(Normal) 9. Best Language: Aphasia (description/naming/reading) - 0(No aphasia) 10. Dysarthria (speech clarity - read or repeat words) - 0(Normal) 11. Extinction and Inattention (visual/tactile/auditory/spatial/personal) - 0(No abnormality) Initials: aa5 NIH Stroke Scale - NIH Stroke Score Date: 10/02/2018 Time: 09:15 Total Score = 2 1a. Level of Consciousness (LOC) - 0(Alert) 1b. Level of Consciousness (LOC) (Year \T\ Age) - 0(Both) 1c. LOC Commands (Open \T\ Closes Eyes/Body Maker) - 0(Both) 2. Best Gaze (Lateral Gaze Paresis) - 0(Normal) 3. Visual Field Loss - 0(No visual loss) 4. Facial Palsy - 0(Normal) 5a. Left Arm: Motor (10-second hold) - 0(No drift) 5b. Right Arm: Motor (10-second hold) - 0(No drift) 6a. Left Leg: Motor (5-second hold - always test supine) - 0(No drift) 6b. Right Leg: Motor (5-second hold - always test supine) - 0(No drift) 7. Limb Ataxia (finger/nose \T\ heel/morales - test with eyes open) - 2(Present in two limbs) 8. Sensory Loss (pinprick arms/legs/face) - 0(Normal) 9. Best Language: Aphasia (description/naming/reading) - 0(No aphasia) 10. Dysarthria (speech clarity - read or repeat words) - 0(Normal) 11. Extinction and Inattention (visual/tactile/auditory/spatial/personal) - 0(No abnormality) Initials: aa5 NIH Stroke Scale - NIH Stroke Score Date: 10/02/2018 Time: 09:39 Total Score = 4 1a. Level of Consciousness (LOC) - 0(Alert) 1b. Level of Consciousness (LOC) (Year \T\ Age) - 0(Both) 1c. LOC Commands (Open \T\ Closes Eyes/Body Maker) - 0(Both) 2. Best Gaze (Lateral Gaze Paresis) - 0(Normal) 3. Visual Field Loss - 0(No visual loss) 4. Facial Palsy - 0(Normal) 5a. Left Arm: Motor (10-second hold) - 1(Drift) 5b. Right Arm: Motor (10-second hold) - 0(No drift) 6a. Left Leg: Motor (5-second hold - always test supine) - 1(Drift) 6b. Right Leg: Motor (5-second hold - always test supine) - 0(No drift) 7. Limb Ataxia (finger/nose \T\ heel/morales - test with eyes open) - 2(Present in two limbs) 8. Sensory Loss (pinprick arms/legs/face) - 0(Normal) 9. Best Language: Aphasia (description/naming/reading) - 0(No aphasia) 10. Dysarthria (speech clarity - read or repeat words) - 0(Normal) 11. Extinction and Inattention (visual/tactile/auditory/spatial/personal) - 0(No abnormality) Initials: marie NIH Stroke Scale - NIH Stroke Score Date: 10/02/2018 Time: 10:00 Total Score = 0 1a. Level of Consciousness (LOC) - 0(Alert) 1b. Level of Consciousness (LOC) (Year \T\ Age) - 0(Both) 1c. LOC Commands (Open \T\ Closes Eyes/Body Maker) - 0(Both) 2. Best Gaze (Lateral Gaze Paresis) - 0(Normal) 3. Visual Field Loss - 0(No visual loss) 4. Facial Palsy - 0(Normal) 5a. Left Arm: Motor (10-second hold) - 0(No drift) 5b. Right Arm: Motor (10-second hold) - 0(No drift) 6a. Left Leg: Motor (5-second hold - always test supine) - 0(No drift) 6b. Right Leg: Motor (5-second hold - always test supine) - 0(No drift) 7. Limb Ataxia (finger/nose \T\ heel/morales - test with eyes open) - 0(Absent) 8. Sensory Loss (pinprick arms/legs/face) - 0(Normal) 9. Best Language: Aphasia (description/naming/reading) - 0(No aphasia) 10. Dysarthria (speech clarity - read or repeat words) - 0(Normal) 11. Extinction and Inattention (visual/tactile/auditory/spatial/personal) - 0(No abnormality) Initials: aa5 Signatures: Dispatcher [employer] EDMS Romie Cardozo MD MD cha Calderon, Audri RN RN aa5 Jeffery Jenkins RN RN bp Jeffery Jenkins RN bp Corrections: (The following items were deleted from the chart) 09:07 08:57 PTT, ACTIVATED+COAG.LAB.BRZ ordered. [facility] EDMO 09:23 09:06 Aspirin Chewable Tablet 162 mg PO once ordered. marie salazar 10:24 08:27 Urine Dipstick-Ancillary ordered. marie medina 10:31 09:41 10/02/2018 09:41 Transfer ordered to [facility]. aa5 Diagnosis is Cerebral infarction; Dizziness and giddiness; Essential (primary) hypertension. Reason for transfer: Higher level of care. Accepting physician is to dr slater. Condition is Fair. Problem is new. Symptoms have improved. marie
[2018-10-02] MEDS ORDERED: FAMOTIDINE 20 MG/2 ML VIAL IV ONE (09:47)
[2018-10-02] MEDS ORDERED: LABETALOL HCL 100 MG/20 ML ONE (09:47)
[2018-10-02] MEDS ORDERED: Nicardipine/NS 0 MG/0 ML KIT IV ONE (10:36)
== END 2018-10-02 10:31 | disposition short-term general hospital (02) ==
LOC: ER 08:18
DX: I63.9 Cerebral infarction, unspecified (principal); I10 Essential (primary) hypertension
CPT/HCPCS: 92977; 93005; 87040 ×2; 85025; 80048; 36415; 83735; 87205 ×2; 85610; 82962; 80076; 83605; 85730; 87077; 87186; 84484; 83690; 84145; 83880; 70450; 71045; 99285; J2997; J7030

== ENCOUNTER 2018-10-26 03:41 | Emergency (ER) | payer OTHER ==
[2018-10-26 04:22] LABS: Absolute Lymphocytes (CBC) 0.7 K/uL (0.7-4.9); Absolute Monocytes 0.9 K/uL (0.1-1.3); Absolute Neutrophil 10.6 K/uL (1.8-8.0); Basophils % 0.3 % (0-1.3); Eosinophils % 0.5 % (0-4.4); Hematocrit 36.3 % (36.0-45.0); MPV 9.1 fL (7.6-11.3); Monocytes % 7.4 % (3.3-12.3); RBC Red Blood Cell Count 4.04 M/uL (3.86-4.86)
[2018-10-26 04:44] LABS: ALT/SGPT 86 U/L (12-78); AST/SGOT 94 U/L (15-37); Albumin 3.3 g/dL (3.4-5.0); Alkaline Phosphatase 123 U/L (45-117); BUN Blood Urea Nitrogen 14 mg/dL (7-18); Bicarbonate 26 mmol/L (21-32); Bilirubin Direct 0.1 mg/dL (0-0.2); Bilirubin Total 0.4 mg/dL (0.2-1.0); Glucose Level 114 mg/dL (74-106); Lipase 232 U/L (73-393); Magnesium 1.9 mg/dL (1.8-2.4); Potassium 3.7 mmol/L (3.5-5.1); Protein, Total 6.4 g/dL (6.4-8.2); Sodium Level 142 mmol/L (136-145); Troponin (Emerg Dept Use Only) < 0.02 ng/mL (0.0-0.045)
[2018-10-26] MEDS ORDERED: ASPIRIN 81 MG CHEWABLE TABLET ONE ×2 (05:14→05:17)
--- NOTE | 2018-10-26 07:03 | EDPHYS ---
Physician Documentation [facility] Name: Lina Murillo Age: 83 yrs Sex: Female : 1935 Arrival Date: 10/26/2018 Time: 03:42 Bed 13 Private MD: ED Physician Navjot Bose HPI: 10/26 06:48 This 83 yrs old Female presents to ER via EMS with complaints of General rn Weakness, dizziness. 06:48 The patient presents with dizziness. Onset: The symptoms/episode began/occurred at rn 00:00. Modifying factors: The symptoms are alleviated by nothing, the symptoms are aggravated by standing up. Severity of symptoms: At their worst the symptoms were moderate in the emergency department the symptoms have improved. The patient has experienced a previous episode. Reports got up to use bathroom, felt dizzy and lightheaded, no syncope, no head injury, reports recently diagnosed with stroke and received TPA 3-4 weeks ago, today not as bad, after hospitalization started 2 new BP meds and has been experiencing short-lived dizzy episodes in AM. No assoc focal weakness or speech/vision changes. . Historical: - Allergies: 03:40 No Known Allergies; jb4 - Home Meds: 03:40 atorvastatin 80 mg oral tab 1 tab once daily [Active]; lisinopril 10 mg Oral tab 1 tab jb4 once daily [Active]; carvedilol 12.5 mg oral tab 1 tab every 12 hours [Active]; folic acid 800 mcg Oral tab 1 tab once daily [Active]; B 12 [Active]; Shadi Aspirin 325 mg oral tab 1 tab once daily [Active]; preserve vision [Active]; carbamazepine 200 mg Oral tab [Active]; - PMHx: 03:40 Hyperlipidemia; Hypertension; Anemia; stroke; jb4 - PSHx: 03:40 None; jb4 - Immunization history:: Adult Immunizations up to date. - Social history:: Smoking status: Patient/guardian denies using tobacco, Patient/guardian denies using alcohol. - Ebola Screening: : No symptoms or risks identified at this time. - Family history:: not pertinent. - Hospitalizations: : No recent hospitalization is reported. ROS: 06:48 Constitutional: Negative for fever, chills, and weight loss, Eyes: Negative for injury, rn pain, redness, and discharge, Neck: Negative for injury, pain, and swelling, Cardiovascular: Negative for chest pain, palpitations, and edema, Respiratory: Negative for shortness of breath, cough, wheezing, and pleuritic chest pain, Abdomen/GI: Negative for abdominal pain, nausea, vomiting, diarrhea, and constipation, MS/Extremity: Negative for injury and deformity, Skin: Negative for injury, rash, and discoloration, Neuro: Negative for headache, numbness, tingling, and seizure. Exam: 06:48 Constitutional: This is a well developed, well nourished patient who is awake, alert, rn and in no acute distress. Head/Face: Normocephalic, atraumatic. Eyes: Pupils equal round and reactive to light, extra-ocular motions intact. Lids and lashes normal. Conjunctiva and sclera are non-icteric and not injected. Cornea within normal limits. Periorbital areas with no swelling, redness, or edema. Cardiovascular: Regular rate and rhythm, No pulse deficits. Respiratory: Lungs have equal breath sounds bilaterally, clear to auscultation, No increased work of breathing, no retractions or nasal flaring. Abdomen/GI: Soft, non-tender Skin: Warm, dry MS/ Extremity: Pulses equal, no cyanosis. Neurovascular intact. Full, normal range of motion. Equal circumference. Neuro: Awake and alert, GCS 15, oriented to person, place, time, and situation. Cranial nerves II-XII grossly intact. Motor strength 5/5 in all extremities. Sensory grossly intact. Normal cerebellar exam. Vital Signs: 03:40 BP 136 / 56; Pulse 59; Resp 16; Temp 98.7(O); Pulse Ox 97% on R/A; Weight 56.7 kg (R); jb4 Height 5 ft. 4 in. (162.56 cm) (R); Pain 0/10; 04:45 BP 143 / 55; Pulse 59; Resp 17; Pulse Ox 100% on R/A; jb4 05:50 BP 123 / 55; Pulse 56; Resp 16; Pulse Ox 97% on R/A; jb4 06:57 BP 146 / 60 Supine; Pulse 59; Resp 17; Pulse Ox 98% ; rr5 06:58 BP 154 / 61; Pulse 57; Resp 16; Pulse Ox 98% ; rr5 06:59 BP 158 / 63 Standing; Pulse 58; Resp 15; Pulse Ox 99% on R/A; rr5 07:10 BP 154 / 61; Pulse 64; Resp 18 S; Temp 98.2(TE); Pulse Ox 98% on R/A; Pain 0/10; aa5 03:40 Body Mass Index 21.46 (56.70 kg, 162.56 cm) jb4 MDM: 03:45 Patient medically screened. rn 06:48 Differential diagnosis: CVA, generalized weakness, hypovolemia, idiopathic dizziness, rn TIA, vertigo. Data reviewed: vital signs, nurses notes, lab test result(s), EKG, radiologic studies. Counseling: I had a detailed discussion with the patient and/or guardian regarding: the historical points, exam findings, and any diagnostic results supporting the discharge/admit diagnosis, lab results, radiology results. Response to treatment: the patient's symptoms have markedly improved after treatment. ED course: SPoke with Dr. 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 Requested CTA and if no changes, dc home with continuation of aspirin and medication. Dizzy spells in AM/getting up might be 2/2 relative hypotension from new meds. Orthostatics normal. . 07:00 ED course: Updated [facility] neurology with results, states no acute changes, ok to dc rn home given patient has improved. Will dc with instructions to f/u with pcp/neurology regarding BP meds if continues to be dizzy in AM>. 10/26 04:07 Order name: Magnesium; Complete Time: 04:50 10/26 04:07 Order name: Basic Metabolic Panel; Complete Time: 04:50 10/26 04:07 Order name: CBC with Diff; Complete Time: 04:50 10/26 04:07 Order name: Hepatic Function; Complete Time: 04:50 10/26 04:07 Order name: Lipase; Complete Time: 04:50 10/26 04:07 Order name: Troponin (emerg Dept Use Only); Complete Time: 04:50 10/26 04:07 Order name: CT Head Brain wo Cont 10/26 04:07 Order name: EKG; Complete Time: 04:09 10/26 04:07 Order name: Cardiac monitoring; Complete Time: 04:19 rn 10/26 04:07 Order name: EKG - Nurse/Tech; Complete Time: 04:19 rn 10/26 04:07 Order name: IV Saline Lock; Complete Time: 04: rn 10/26 05:52 Order name: CT Head Angio rn 10/26 05:52 Order name: CT Neck Angio rn 10/26 04:07 Order name: Labs collected and sent; Complete Time: 04:19 rn 10/26 04:07 Order name: NPO; Complete Time: 04:09 rn 10/26 04:07 Order name: O2 Per Protocol; Complete Time: 04: rn 10/26 04:07 Order name: O2 Sat Monitoring; Complete Time: 04:08 rn Administered Medications: 05:06 Drug: Aspirin Chewable Tablet 324 mg Route: PO; jbSrini 07:08 Follow up: Response: No adverse reaction jessica Disposition: 10/26/18 07:02 Discharged to Home. Impression: Dizziness and giddiness. - Condition is Stable. - Discharge Instructions: Dizziness. - Medication Reconciliation Form, Thank You Letter, Antibiotic Education, Prescription Opioid Use form. - Follow up: Private Physician; When: As needed; Reason: Recheck today's complaints, Re-evaluation by your physician. - Problem is new. - Symptoms have improved. Signatures: Dispatcher [employer] EDShakila Contreras RN RN iw Nieto, Roman, MD MD rn Bryson, James RN RN jb4 Corrections: (The following items were deleted from the chart) 04:44 04:07 Urine Dipstick-Ancillary ordered. gareth jb4 07:28 07:02 10/26/2018 07:02 Discharged to Home. Impression: Dizziness and giddiness. iw Condition is Stable. Discharge Instructions: Dizziness. Forms are Medication Reconciliation Form, Thank You Letter, Antibiotic Education, Prescription Opioid Use. Follow up: Private Physician; When: As needed; Reason: Recheck today's complaints, Re-evaluation by your physician. Problem is new. Symptoms have improved. rn
--- NOTE | 2018-10-26 07:03 | ER ---
Nurse's Notes [facility] Name: Lina Murillo Age: 83 yrs Sex: Female : 1935 Arrival Date: 10/26/2018 Time: 03:42 Bed 13 Private MD: Diagnosis: Dizziness and giddiness Presentation: 10/26 03:40 Presenting complaint: EMS states: We received a call for high blood pressure, on scene jb4 the blood pressure was within normal limits, pt reported waking up around midnight feeling light headed and not being able to return to sleep. The sensation of feeling light headed has reportedly gone while en route to ED. 03:40 Method Of Arrival: EMS: [facility] jb4 03:40 Transition of care: patient was not received from another setting of care. Onset of jb4 symptoms was October 26, 2018. Risk Assessment: Do you want to hurt yourself or someone else? Patient reports no desire to harm self or others. Initial Sepsis Screen: Does the patient meet any 2 criteria? No. Patient's initial sepsis screen is negative. Does the patient have a suspected source of infection? No. Patient's initial sepsis screen is negative. Care prior to arrival: Glucose check: 135. 03:40 Acuity: ESTEFANY 3 jb4 Triage Assessment: 03:40 General: Appears in no apparent distress. comfortable, Behavior is calm, cooperative, jb4 appropriate for age, Pt reports episodes of feeling light headed ever since having a prior stroke, denies any other deficits.. Pain: Denies pain. EENT: No signs and/or symptoms were reported regarding the EENT system. Neuro: Level of Consciousness is awake, alert, obeys commands, Oriented to person, place, time, situation, Moves all extremities. Speech is normal, Facial symmetry appears normal, Pupils are PERRLA, Reports feeling light headed.. Cardiovascular: Patient's skin is warm and dry. Respiratory: Airway is patent Respiratory effort is even, unlabored, Respiratory pattern is regular, symmetrical. GI: No signs and/or symptoms were reported involving the gastrointestinal system. : No signs and/or symptoms were reported regarding the genitourinary system. Derm: Skin is intact, Skin is pink, warm \T\ dry. Musculoskeletal: Circulation, motion, and sensation intact. Historical: - Allergies: 03:40 No Known Allergies; jb4 - Home Meds: 03:40 atorvastatin 80 mg oral tab 1 tab once daily [Active]; lisinopril 10 mg Oral tab 1 tab jb4 once daily [Active]; carvedilol 12.5 mg oral tab 1 tab every 12 hours [Active]; folic acid 800 mcg Oral tab 1 tab once daily [Active]; B 12 [Active]; Shadi Aspirin 325 mg oral tab 1 tab once daily [Active]; preserve vision [Active]; carbamazepine 200 mg Oral tab [Active]; - PMHx: 03:40 Hyperlipidemia; Hypertension; Anemia; stroke; jb4 - PSHx: 03:40 None; jb4 - Immunization history:: Adult Immunizations up to date. - Social history:: Smoking status: Patient/guardian denies using tobacco, Patient/guardian denies using alcohol. - Ebola Screening: : No symptoms or risks identified at this time. - Family history:: not pertinent. - Hospitalizations: : No recent hospitalization is reported. Screenin:40 Abuse screen: Denies threats or abuse. Nutritional screening: No deficits noted. jb4 Tuberculosis screening: No symptoms or risk factors identified. Fall Risk IV access (20 points). Gait- Weak (10 pts.). Total Myers Fall Scale indicates Low Risk Score (25-44 pts). Fall prevention measures have been instituted. Side Rails Up X 2 Placed close to Nursing Station Frequent Obs/Assesments occuring Family Present and informed to notify staff if they need to leave bedside. Assessment: 03:40 General: see triage assessment.. jb4 04:44 Reassessment: Patient appears in no apparent distress at this time. Patient and/or jb4 family updated on plan of care and expected duration. Pain level reassessed. Patient is alert, oriented x 3, equal unlabored respirations, skin warm/dry/pink. 05:50 Reassessment: Patient appears in no apparent distress at this time. Patient and/or jb4 family updated on plan of care and expected duration. Pain level reassessed. PT is resting in bed with eyes closed, daughter is at the bedside, respirations are even and unlabored. 07:05 Reassessment: Dr. Bose discussing discharge instructions with patient and pt's aa5 daughter. . 07:05 Reassessment: Patient is alert, oriented x 3, equal unlabored respirations, skin aa5 warm/dry/pink. 07:25 Reassessment: Patient is alert, oriented x 3, equal unlabored respirations, skin aa5 warm/dry/pink. Patient denies pain at this time. Vital Signs: 03:40 BP 136 / 56; Pulse 59; Resp 16; Temp 98.7(O); Pulse Ox 97% on R/A; Weight 56.7 kg (R); jb4 Height 5 ft. 4 in. (162.56 cm) (R); Pain 0/10; 04:45 BP 143 / 55; Pulse 59; Resp 17; Pulse Ox 100% on R/A; jb4 05:50 BP 123 / 55; Pulse 56; Resp 16; Pulse Ox 97% on R/A; jb4 06:57 BP 146 / 60 Supine; Pulse 59; Resp 17; Pulse Ox 98% ; rr5 06:58 BP 154 / 61; Pulse 57; Resp 16; Pulse Ox 98% ; rr5 06:59 BP 158 / 63 Standing; Pulse 58; Resp 15; Pulse Ox 99% on R/A; rr5 07:10 BP 154 / 61; Pulse 64; Resp 18 S; Temp 98.2(TE); Pulse Ox 98% on R/A; Pain 0/10; aa5 03:40 Body Mass Index 21.46 (56.70 kg, 162.56 cm) jb4 ED Course: 03:40 Arm band placed on right wrist. jb4 03:40 Patient has correct armband on for positive identification. Bed in low position. Call jb4 light in reach. Side rails up X2. Pulse ox on. NIBP on. 03:42 Patient arrived in ED. am2 03:45 Navjot Bose MD is Attending Physician. rn 03:51 Kirt Trejo, PIEDAD is Primary Nurse. jb4 03:54 Triage completed. jb4 04:14 Initial lab(s) drawn, by me, sent to lab. Inserted saline lock: 20 gauge in right jb4 antecubital area, using aseptic technique. Blood collected. 04:26 CT Head Brain wo Cont In Process Unspecified. EDMS 06:36 CT Head Angio In Process Unspecified. EDMS 06:37 CT Neck Angio In Process Unspecified. EDMS 07:05 No provider procedures requiring assistance completed. aa5 07:14 IV discontinued, intact, bleeding controlled, No redness/swelling at site. Pressure em1 dressing applied. 07:14 IV d/c'd by ordnance engineering technician. aa5 Administered Medications: 05:06 Drug: Aspirin Chewable Tablet 324 mg Route: PO; jb4 07:08 Follow up: Response: No adverse reaction jb4 Outcome: 07:02 Discharge ordered by . rn 07:25 Discharged to home via wheelchair, with family. aa5 07:25 Condition: stable 07:25 Discharge instructions given to patient, family, Instructed on discharge instructions, follow up and referral plans. Demonstrated understanding of instructions, follow-up care. 07:28 Patient left the ED. iw Signatures: Dispatcher [employer] EDShakila Contreras RN RN iw Navjot Bose MD MD rn Martinez, Eric em1 Irina Roche RN RN aa5 Kirt Trejo RN RN jb4 Nicole Quintanilla Raymond, RN RN rr5 Corrections: (The following items were deleted from the chart) 07:50 07:00 Reassessment: Dr. Bose discussing discharge instructions with patient and pt's aa5 daughter. . aa5
--- OUTSIDE RECORDS SUMMARY | 2018-10-26 12:42 | XMS REPORT | Clinical Summary ---
:1935 Author Organization [facility] Address [address] [place] [address] Care Team Providers Name Role Phone Unavailable Primary Care Provider Unavailable Allergies No Known Allergies Medications Medication Sig Dispensed Refills Start Date End Date Status carBAMazepine Take 200 mg by 0 Active (TEGRETOL) 200 mg mouth 2 (two) tabletIndications: times daily. Trigeminal Neuralgia ibuprofen Take 800 mg by 0 Active (ADVIL,MOTRIN) 800 MG mouth daily. tabletIndications: Pain, ciatic nerve pain bimatoprost (LUMIGAN) Place 1 drop 0 Active 0.01 % Drop ophthalmic into both eyes solutionIndications: 2 (two) times open angle glaucoma daily. atorvastatin (LIPITOR) Take 1 tablet 60 tablet 2 10/03/2018 10/03/2019 Active 80 MG tablet (80 mg total) by mouth nightly. carvedilol (COREG) 6.25 Take 1 tablet 60 tablet 2 10/03/2018 10/03/2019 Active MG tablet (6.25 mg total) by mouth 2 (two) times daily. lisinopril Take 1 tablet 60 tablet 2 10/04/2018 10/04/2019 Active (PRINIVIL,ZESTRIL) 5 MG (5 mg total) by tablet mouth daily. cyanocobalamin 1000 MCG Take 1 tablet 30 tablet 2 10/03/2018 10/03/2019 Active tablet (1,000 mcg total) by mouth daily. folic acid (FOLVITE) Take 1 tablet 30 tablet 2 10/03/2018 10/03/2019 Active 400 MCG tablet (400 mcg total) by mouth daily. aspirin 81 MG chewable Take 1 tablet 60 tablet 2 10/03/2018 10/03/2019 Active tablet (81 mg total) by mouth daily. 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) 10/02/2018 Orders Only General Internal Medicine after 10/25/2017 Social History Tobacco Use Types Packs/Day Years Used Date Never Smoker Smokeless Tobacco: Never Used Tobacco Cessation: Counseling Given: No Alcohol Use Drinks/Week oz/Week Comments No Alcohol Habits Answer Date Recorded How often do you have a drink containing alcohol? Not asked 10/02/2018 How many drinks containing alcohol do you have on a typical Not asked day when you are drinking? How often do you have six or more drinks on one occasion? Never 10/02/2018 Sex Assigned at Date Recorded Not on file Job Start Date Occupation Industry Not on file Not on file Not on file Travel History Travel Start Travel End No recent travel history available. Last Filed Vital Signs Vital Sign Reading Time Taken Blood Pressure 164/67 10/03/2018 4:50 PM CDT Pulse 63 10/03/2018 4:50 PM CDT Temperature 36.6 C (97.9 F) 10/03/2018 4:50 PM CDT Respiratory Rate 13 10/03/2018 4:50 PM CDT Oxygen Saturation 97% 10/03/2018 4:50 PM CDT Inhaled Oxygen Concentration - - Weight 56.6 kg (124 lb 12.5 oz) 10/02/2018 11:00 AM CDT Height 162.6 cm (5' 4") 10/02/2018 11:00 AM CDT Body Mass Index 21.42 10/02/2018 11:00 AM CDT Plan of Treatment Not on file Procedures Procedure Name Priority Date/Time Associated Comments Diagnosis REPORT OF PROCEDURE - 10/05/2018 11:33 ENDOSCOPY SCAN AM CDT RHYTHM STRIP - SCAN 10/05/2018 11:33 AM CDT ECHOCARDIOGRAM REPORT - 10/03/2018 9:21 SCAN PM CDT POCT-GLUCOSE METER Routine 10/03/2018 12:42 Results for this PM CDT procedure are in the results section. MR BRAIN WITHOUT IV Routine 10/03/2018 10:35 Results for this CONTRAST AM CDT procedure are in the results section. CBC W/PLT COUNT & AUTO Routine 10/03/2018 3:15 Results for this DIFFERENTIAL AM CDT procedure are in the results section. BASIC METABOLIC PANEL Routine 10/03/2018 3:15 Results for this (7) AM CDT procedure are in the results section. CBC W/PLT COUNT & AUTO Routine 10/03/2018 3:15 Results for this DIFFERENTIAL AM CDT procedure are in the results section. PHOSPHORUS Routine 10/03/2018 3:15 Results for this AM CDT procedure are in the results section. MAGNESIUM Routine 10/03/2018 3:15 Results for this AM CDT procedure are in the results section. LIPID PANEL Routine 10/03/2018 3:15 Results for this AM CDT procedure are in the results section. HEMOGLOBIN A1C Routine 10/03/2018 3:15 Results for this AM CDT procedure are in the results section. 2D ECHO W/ DOPPLER Routine 10/03/2018 2:45 Results for this (CW/PW/COLOR) AM CDT procedure are in the results section. PHOSPHORUS Routine 10/02/2018 2:35 Results for this PM CDT procedure are in the results section. MAGNESIUM Routine 10/02/2018 2:35 Results for this PM CDT procedure are in the results section. TSH/FREE T4 IF Routine 10/02/2018 2:35 Results for this INDICATED PM CDT procedure are in the results section. RPR Routine 10/02/2018 2:35 Results for this PM CDT procedure are in the results section. FOLATE, SERUM Routine 10/02/2018 2:35 Results for this PM CDT procedure are in the results section. VITAMIN B12 Routine 10/02/2018 2:35 Results for this PM CDT procedure are in the results section. ECG 12-LEAD Routine 10/02/2018 2:17 PM CDT Procedure Note - Interface, External Ris In - 10/02/2018 11:32 PM CDT Ventricular Rate 55 BPM Atrial Rate 55 BPM P-R Interval 188 ms QRS Duration 104 ms Q-T Interval 428 ms QTC Calculation(Bazett) 409 ms P [place] 12 degrees R [place] -41 degrees T [place] 23 degrees Sinus bradycardia Left axis deviation Minimal voltage criteria for LVH, may be normal variant Septal infarct , age undetermined Abnormal ECG No previous ECGs available ECG 12-LEAD Routine 10/02/2018 2:[address]/CTA CAROTID Routine 10/02/2018 1:[address]/CTA BRAIN Routine 10/02/2018 1:43 PM CDT CBC W/PLT COUNT & AUTO Routine 10/02/2018 12:58 PM CDT Results for this DIFFERENTIAL procedure are in the results section. CBC W/PLT COUNT & AUTO Routine 10/02/2018 12:58 PM CDT Results for this DIFFERENTIAL procedure are in the results section. BASIC METABOLIC PANEL (7) Routine 10/02/2018 12:58 PM CDT after 10/25/2017 Results EKG-SCANNED (10/05/2018 11:33 AM CDT) Narrative Performed At RHYTHM STRIP - SCAN (10/05/2018 11:33 AM CDT) Narrative Performed At ECHOCARDIOGRAM REPORT - SCAN (10/03/2018 9:21 PM CDT) Narrative Performed At POC-Glucose meter (10/03/2018 12:42 PM CDT) POC-Glucose Meter 110Comment: TESTED AT 70 - 110 mg/dL [address] [address] Specimen Blood Performing Organization Address City/State/Zipcode Phone Number [address] [address] CENTER MR brain without IV contrast (10/03/2018 10:35 AM CDT) Specimen Narrative Performed At FINAL REPORT CO2Stats MRI Brain without contrast Clinical History: Cerebral ischemia Technique: MRI of the brain utilizing axial T2, FLAIR, GRE, DWI; sagittal and coronal T1-weighted images. Comparisons: CT 10/02/2018 Findings: There is an acute infarct of the superior right cerebellum. There is a small acute infarct of the left cerebellum. There is a small acute infarct of the left pontomesencephalic junction. There is a punctate acute infarct of the right paracentral abel. There is no acute hemorrhage. 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 There is mild periventricular and subcortical white matter T2 hyperintensity, which is nonspecific but compatible with chronic microvascular ischemic change. There is mild generalized parenchymal volume loss without hydrocephalus, midline shift, or apparent mass effect. There are no extra-axial fluid collections. The craniocervical junction is preserved. The major intracranial flow-voids appear patent. There is bilateral cataract surgery. IMPRESSION: Acute infarction in the right greater than left cerebellum. Acute pontomesencephalic infarcts. No hemorrhage. Signed: Haile Jose MD Report Verified Date/Time:10/03/2018 11:33:22 Reading Location: [address] Neuro Reading Room Procedure Note Interface, External Ris In - 10/03/2018 11:35 AM CDT FINAL REPORT MRI Brain without contrast Clinical History: Cerebral ischemia Technique: MRI of the brain utilizing axial T2, FLAIR, GRE, DWI; sagittal and coronal T1-weighted images. Comparisons: CT 10/02/2018 Findings: There is an acute infarct of the superior right cerebellum. There is a small acute infarct of the left cerebellum. There is a small acute infarct of the left pontomesencephalic junction. There is a punctate acute infarct of the right paracentral abel. There is no acute hemorrhage. 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 There is mild periventricular and subcortical white matter T2 hyperintensity, which is nonspecific but compatible with chronic microvascular ischemic change. There is mild generalized parenchymal volume loss without hydrocephalus, midline shift, or apparent mass effect. There are no extra-axial fluid collections. The craniocervical junction is preserved. The major intracranial flow-voids appear patent. There is bilateral cataract surgery. IMPRESSION: Acute infarction in the right greater than left cerebellum. Acute pontomesencephalic infarcts. No hemorrhage. Signed: Haile Jose MD Report Verified Date/Time: 10/03/2018 11:33:22 Reading Location: [facility] C013 Neuro Reading Room Performing Organization Address City/State/Zipcode Phone Number [facility] CBC with platelet count + automated diff (10/03/2018 3:15 AM CDT)Only the most recent of2 resultswithin the time period is included. WBC 4.9 3.5 - 10.5 K/L [facility] RBC 3.58 (L) 3.93 - 5.22 M/L [facility] Hemoglobin 10.6 (L) 11.2 - 15.7 GM/DL [facility] Hematocrit 33.8 (L) 34.1 - 44.9 % [facility] MCV 94.4 79.4 - 94.8 fL [facility] MCH 29.6 25.6 - 32.2 pg [facility] MCHC 31.4 (L) 32.2 - 35.5 GM/DL [facility] RDW 12.4 11.7 - 14.4 % [facility] Platelets 144 (L) 150 - 450 K/CU MM [facility] MPV 10.2 9.4 - 12.3 fL [facility] nRBC 0 0 - 0 /100 WBC [facility] % Neutros 61 % [facility] % Lymphs 24 % [facility] % Monos 12 % [facility] % Eos 2 % [facility] % Baso 1 % [facility] # Neutros 3.01 1.56 - 6.13 K/L [facility] # Lymphs 1.17 (L) 1.18 - 3.74 K/L [facility] # Monos 0.60 (H) 0.24 - 0.36 K/L [facility] # Eos 0.11 0.04 - 0.36 K/L [facility] # Baso 0.03 0.01 - 0.08 K/L [facility] Immature Granulocytes-Relative 0 0 - 1 % [facility] Specimen Blood Performing Organization Address City/State/Zipcode Phone Number [address] [phone] CENTER Phosphorus (10/03/2018 3:15 AM CDT)Only the most recent of2 resultswithin the time period is included. Phosphorus 2.8 2.3 - 4.7 mg/dL [facility] Specimen Blood Narrative Performed At Fasting [facility] Performing Organization Address City/[facility] Phone Number [address] [address] CENTER Magnesium (10/03/2018 3:15 AM CDT)Only the most recent of2 resultswithin the time period is included. Magnesium 1.8 1.6 - 2.6 mg/dL [facility] Specimen Blood Narrative Performed At Fasting [facility] Performing Organization Address City/[facility] Phone Number [address] [address] CENTER Hemoglobin A1c (10/03/2018 3:15 AM CDT) Hemoglobin A1C 5.4 4.3 - 6.1 % [facility] Specimen Blood Performing Organization Address City/[facility] Phone Number [address] [phone] CENTER Fasting lipid panel (10/03/2018 3:15 AM CDT) Triglycerides 100 mg/dL [facility] Cholesterol 253 mg/dL [facility] HDL 47 mg/dL [facility] LDL Calculated 186 mg/dL [facility] Specimen Blood Narrative Performed At Triglyceride Reference Range: [facility] Low Risk <150 [id number] High Risk 200-499 Very High Risk>=500 Cholesterol Reference Range: Low Risk <200 [id number] High Risk>240 HDL Cholesterol Reference Range: Low Risk >=60 High Risk <40 LDL Cholesterol Reference Range: Optimal<100 Near Phfjxst048-446 [id number] Hiro214-459 Very High >=190 Fasting Performing Organization Address [facility] Phone Number [facility] [address] [place] [address] [phone] CENTER Basic Metabolic Panel (10/03/2018 3:15 AM CDT)Only the most recent of2 resultswithin the time period is included. Sodium 139 136 - 145 meq/L [facility] Potassium 4.1 3.5 - 5.1 meq/L [facility] Chloride 109 (H) 98 - 107 meq/L [facility] CO2 26 22 - 29 meq/L [facility] BUN 8 7 - 21 mg/dL [facility] Creatinine 0.62 0.57 - 1.25 mg/dL [facility] Glucose 85 70 - 105 mg/dL [facility] Calcium 8.9 8.4 - 10.2 mg/dL [facility] EGFR 91Comment: ESTIMATED GFR IS mL/min/1.73 sq m [facility] NOT ACCURATE CREATININE [facility] CENTER CLEARANCE IN PREDICTING GLOMERULAR FILTRATION RATE. ESTIMATED GFR IS NOT APPLICABLE FOR DIALYSIS PATIENTS. Specimen Blood Narrative Performed At Fasting [facility] Performing Organization Address City/[facility]/Zipcode Phone Number [facility] [address] [place], [place] [phone] CENTER 2D Echo W/Doppler(CW/PW/Color) (10/03/2018 2:45 AM CDT) Ejection Fraction [facility] ECHO HEARTLAB [employer] [facility] Specimen Narrative Performed At Transthoracic Echocardiography Report (TTE) [facility] ECHO HEARTLAB [employer] Demographics Patient NameWLALI CYR Date of Study10/03/2018 Female Visit [id number] Unknown Room [id number] Number Date of 1935Referring Joel Vidal MD Physician Age 83 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 Clinical History STROKE HGB 10.9 HCT 34 % Contrast Medium: Bubble Study. Height: 64 inches Weight: 56.25 kg (124 lbs) BSA: 1.6 m^2 BMI: 21.28 kg/m^2 HR: 65 bpm BP: 127/56 mmHg Summary The LV endocardium is adequately visualized. The left ventricle is chamber size (by PSLAX dimension) is normal (female - LVIDd 3.8-5.2cm) . No evidence of LV hypertrophy. Sigmoid septum with discrete basal septal hypertrophy is present. All of the LV segments contract normally . Estimated LVEF by qualitative assessment is normal (60%) . Grade 1 diastolic dysfunction (impaired relaxation and low-normal LA pressure). The estimated RA pressure by IVC dynamics 5-10mmHg . Otherwise, essentially normal exam. Previous Study No prior studies available for comparison. Signature Findings Left Ventricle The LV endocardium is adequately visualized. Th e left ventricle is chamber size (by PSLAX di mension) is normal (female - LVIDd 3.8-5.2cm) . No evidence of LV hypertrophy. Si gmoid septum with discrete basal septal hy pertrophy is present. Al l of the LV segments contract normally . Es timated LVEF by qualitative assessment is normal (6 0%) . Gr mary 1 diastolic dysfunction (impaired relaxation an d low-normal LA pressure). Left AtriumLA size is normal . Right VentricleRV chamber size is normal . Gl obal RV systolic function is normal . Right Atrium RA size is probably normal based on available vi ews. Atrial SeptumIV saline contrast injection was negative for a PFO (p atent foramen ovale) at rest and post Valsalva . Aortic Valve Normal AoV structure. No evidence of aortic regurgitation. Mitral Valve Mild MV leaflet thickening. Tr brennen mitral regurgitation. Tricuspid ValveMild tricuspid regurgitation. Es timated peak systolic PA pressure is 20-25 mmHg . Pulmonic Valve Normal PV structure and function. A trace of, Mild pulmonary regurgitation. AortaAortic root size (SInus of Valsalva diameter) is no rmal . PericardiumNo pericardial effusion is visualized. IVC/SVC/PA/PV/PleuralThe estimated RA pressure by IVC dynamics 5-10mmHg . Chambers/Structures Left Atrium LA Volume: 56.9 mlLA Area: 19.41 cm^2 LA Vol. Index: 36 ml/m^2 Left Ventricle LVIDd: 4.36 cm LV Septum Diastolic: 0.68 cm LV PW Diastolic: 0.7 cm LVOT Diameter: 1.99 cm Right Ventricle TAPSE: 2.25 cm Aorta Ao Root S of Ita.: 3.05 cm Doppler/Quantitative Measurements Mitral Valve MV Peak E-Wave: 0.92 m/sMV Peak A-Wave: 1.17 m/s E/A Ratio: 0.78 Peak Gradient: 3.37 mmHg Deceleration Time: 188.8 msec MV Felix. Peak: Tissue Doppler E' Lateral Velocity: 0.09 m/s E/E': 9.69 Aortic Valve Peak Velocity: 1.35 m/sMean Velocity: 0.82 m/s Peak Gradient: 7.24 mmHg Mean Gradient: 3.26 mmHg AV Area (continuity): 2.65 cm^2 AV VTI: 28.5 cm AV DVI: 0.85 LVOT Peak Velocity: 1 m/sPeak Gradient: 4.02 mmHg Mean Velocity: 0.66 m/s Mean Gradient: 2 mmHg LVOT Diameter: 1.99 cmLVOT VTI: 24.34 cm LVOT Area: 3.11 cm^2LVOT SV:75.67 ml LVOT CO: 4.92 l/min LVOT CI: 3.08 l/min/m^2 Tricuspid Valve TR Velocity: 2.33 m/s TR Gradient: 21.77 mmHg Procedure Note Interface, External Ris In - 10/03/2018 10:21 AM CDT Transthoracic Echocardiography Report (TTE) Demographics Patient Name LALI MURILLO Date of Study 10/03/2018 Gender Female Visit Number [id number] Race Unknown Room Number 7406 Number Date of 1935 Referring Joel Vidal MD Physician Age 83 year(s) 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 Clinical History STROKE HGB 10.9 HCT 34 % Contrast Medium: Bubble Study. Height: 64 inches Weight: 56.25 kg (124 lbs) BSA: 1.6 m^2 BMI: 21.28 kg/m^2 HR: 65 bpm BP: 127/56 mmHg Summary The LV endocardium is adequately visualized. The left ventricle is chamber size (by PSLAX dimension) is normal (female - LVIDd 3.8-5.2cm) . No evidence of LV hypertrophy. Sigmoid septum with discrete basal septal hypertrophy is present. All of the LV segments contract normally . Estimated LVEF by qualitative assessment is normal (60%) . Grade 1 diastolic dysfunction (impaired relaxation and low-normal LA pressure). The estimated RA pressure by IVC dynamics 5-10mmHg . Otherwise, essentially normal exam. Previous Study No prior studies available for comparison. Signature Findings Left Ventricle The LV endocardium is adequately visualized. The left ventricle is chamber size (by PSLAX dimension) is normal (female - LVIDd 3.8-5.2cm) . No evidence of LV hypertrophy. Sigmoid septum with discrete basal septal hypertrophy is present. All of the LV segments contract normally . Estimated LVEF by qualitative assessment is normal (60%) . Grade 1 diastolic dysfunction (impaired relaxation and low-normal LA pressure). Left Atrium LA size is normal . Right Ventricle RV chamber size is normal . Global RV systolic function is normal . Right Atrium RA size is probably normal based on available views. Atrial Septum IV saline contrast injection was negative for a PFO (patent foramen ovale) at rest and post Valsalva . Aortic Valve Normal AoV structure. No evidence of aortic regurgitation. Mitral Valve Mild MV leaflet thickening. Trace mitral regurgitation. Tricuspid Valve Mild tricuspid regurgitation. Estimated peak systolic PA pressure is 20-25 mmHg . Pulmonic Valve Normal PV structure and function. A trace of, Mild pulmonary regurgitation. Aorta Aortic root size (SInus of Valsalva diameter) is normal . Pericardium No pericardial effusion is visualized. IVC/SVC/PA/PV/Pleural The estimated RA pressure by IVC dynamics 5-10mmHg . Chambers/Structures Left Atrium LA Volume: 56.9 ml LA Area: 19.41 cm^2 LA Vol. Index: 36 ml/m^2 Left Ventricle LVIDd: 4.36 cm LV Septum Diastolic: 0.68 cm LV PW Diastolic: 0.7 cm LVOT Diameter: 1.99 cm Right Ventricle TAPSE: 2.25 cm Aorta Ao Root S of Ita.: 3.05 cm Doppler/Quantitative Measurements Mitral Valve MV Peak E-Wave: 0.92 m/s MV Peak A-Wave: 1.17 m/s E/A Ratio: 0.78 Peak Gradient: 3.37 mmHg Deceleration Time: 188.8 msec MV Felix. Peak: Tissue Doppler E' Lateral Velocity: 0.09 m/s E/E': 9.69 Aortic Valve Peak Velocity: 1.35 m/s Mean Velocity: 0.82 m/s Peak Gradient: 7.24 mmHg Mean Gradient: 3.26 mmHg AV Area (continuity): 2.65 cm^2 AV VTI: 28.5 cm AV DVI: 0.85 LVOT Peak Velocity: 1 m/s Peak Gradient: 4.02 mmHg Mean Velocity: 0.66 m/s Mean Gradient: 2 mmHg LVOT Diameter: 1.99 cm LVOT VTI: 24.34 cm LVOT Area: 3.11 cm^2 LVOT SV:75.67 ml LVOT CO: 4.92 l/min LVOT CI: 3.08 l/min/m^2 Tricuspid Valve TR Velocity: 2.33 m/s TR Gradient: 21.77 mmHg Performing Organization Address City/State/[facility] Phone Number [facility] ECHO HEARTLAB MKCKESSON CPACS TSH/Free T4 If Indicated (10/02/2018 2:35 PM CDT) TSH 0.84 0.35 - 4.94 uIU/mL [facility] Specimen Blood Performing Organization Address [facility] Phone Number [address] [address] [phone] CENTER RPR (10/02/2018 2:35 PM CDT) RPR Nonreactive Nonreactive [facility] Specimen Blood Performing Organization Address [facility] Phone Number [address] [address] CENTER Folate, Serum (10/02/2018 2:35 PM CDT) Folate 13.6 >=7.0 ng/mL [facility] Specimen Blood Performing Organization Address [facility] Phone Number [address] [address] [phone] CENTER Vitamin B12 (10/02/2018 2:35 PM CDT) Vitamin B12 290 213 - 816 pg/mL [facility] Specimen Blood Performing Organization Address [facility] Phone Number [address] [address] CENTER ECG 12 lead (10/02/2018 2:17 PM CDT) Specimen Narrative Performed At Ventricular Rate 55 BPM GE MUSE Atrial Rate 55 BPM P-R Interval 188 ms QRS Duration 104 ms Q-T Interval 428 ms QTC Calculation(Bazett) 409 ms P [place] 12 degrees R [place] -41 degrees T [place] 23 degrees Sinus bradycardia Left anterior fascicular block Abnormal ECG No previous ECGs available Confirmed by MD BELTRE JORGE ([id number]) on 10/03/2018 11:32:14 AM Procedure Note Interface, External Ris In - 10/03/2018 11:32 AM CDT Ventricular Rate 55 BPM Atrial Rate 55 BPM P-R Interval 188 ms QRS Duration 104 ms Q-T Interval 428 ms QTC Calculation(Bazett) 409 ms P [place] 12 degrees R [place] -41 degrees T [place] 23 degrees Sinus bradycardia Left anterior fascicular block Abnormal ECG No previous ECGs available Confirmed by MD BELTRE JORGE ([id number]) on 10/03/2018 11:32:14 AM Performing Organization Address City/State/Zipcode Phone Number [employer] CTA carotid (10/02/2018 1:43 PM CDT) Specimen Narrative Performed At FINAL REPORT CO2Stats CT, CTANGIOBRAIN, CT, CAROTID, ANGIO BRAIN CT WITHOUT CONTRAST INDICATION: Stroke COMPARISON: None TECHNIQUE: Rapid acquisition spiral images were obtained between the aortic arch and the cranial vertex during intravenous contrast infusion to reconstruct axial images and angiographic 3D maximum intensity projections (MIP). 3-D volumetric reformatted images were created at a dedicated workstation. Precontrast images of the brain were also obtained. Stenosis evaluation reported in compliance with NASCET criteria. DOSE REDUCTION: Dose modulation, iterative reconstruction, and/or weight-based adjustment of the mA/kV was utilized to reduce the radiation dose to as low as reasonably achievable. FINDINGS: CT BRAIN: Cerebral parenchyma: Unremarkable. Midline structures: Normally positioned. Cerebellum and brainstem: Normal. Ventricles: Normal volume. Extra-axial spaces: Unremarkable. Calvarium and skull base: Intact. Paranasal sinuses and mastoid air cells: Visible chambers are clear. Orbital contents: Included portions unremarkable. CTA BRAIN: Internal carotid arteries: Petrous, cavernous and supraclinoid portions patent. Middle cerebral arteries: Patent to distal branches. Anterior cerebral arteries: Patent. Intact A-comm. Basilar system: Patent vertebrobasilar system. Posterior cerebral arteries: configuration of the right posterior-superior vertebral artery. Both arteries demonstrate normal patency beyond the quadrigeminal segments. Venous opacification: Major dural sinuses unremarkable for bolus timing. Additional findings: None. CTA NECK: Common carotid arteries: The common carotid arteries are normal in size. Bifurcations: Atherosclerotic disease bilaterally. No flow limitation on the right. Less than 30% narrowing on the left. Cervical internal carotid arteries: No flow limiting stenosis. 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 Small caliber, but widely patent right vertebral artery. Arch anatomy: Conventional. Cleft/filling defect at the origin of the left subclavian artery suggesting dissection versus ulcerated plaque versus artifact. Nonvascular findings: Osseous structures: No acute osseous abnormality. Intact calvarium and skull base. Cervical soft tissues: No adenopathy. Patent aerodigestive tract. Lung apices: No apical consolidation or pneumothorax. IMPRESSION: No identifiable disruption of the cano-white distinction. No intracranial hemorrhage. Dissection versus ulcerated plaque versus artifact at the origin of the left subclavian artery (annotated on sagittal cervical region image [address] angiographic image 334). 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 No major branch occlusion within the intracranial circulation. Signed: JR Matute Robert MD Report Verified Date/Time:10/02/2018 14:34:45 Reading Location: [facility] Radiology Reading Room Procedure Note Interface, External Ris In - 10/02/2018 2:[address] PM [address] REPORT CT, CTANGIO BRAIN, CT, CAROTID, ANGIO BRAIN CT WITHOUT CONTRAST INDICATION: Stroke COMPARISON: None TECHNIQUE: Rapid acquisition spiral images were obtained between the aortic arch and the cranial vertex during intravenous contrast infusion to reconstruct axial images and angiographic 3D maximum intensity projections (MIP). 3-D volumetric reformatted images were created at a dedicated workstation. Precontrast images of the brain were also obtained. Stenosis evaluation reported in compliance with NASCET criteria. DOSE REDUCTION: Dose modulation, iterative reconstruction, and/or weight-based adjustment of the mA/kV was utilized to reduce the radiation dose to as low as reasonably achievable. FINDINGS: CT BRAIN: Cerebral parenchyma: Unremarkable. Midline structures: Normally positioned. Cerebellum and brainstem: Normal. Ventricles: Normal volume. Extra-axial spaces: Unremarkable. Calvarium and skull base: Intact. Paranasal sinuses and mastoid air cells: Visible chambers are clear. Orbital contents: Included portions unremarkable. CTA BRAIN: Internal carotid arteries: Petrous, cavernous and supraclinoid portions patent. Middle cerebral arteries: Patent to distal branches. Anterior cerebral arteries: Patent. Intact A-comm. Basilar system: Patent vertebrobasilar system. Posterior cerebral arteries: configuration of the right posterior-superior vertebral artery. Both arteries demonstrate normal patency beyond the quadrigeminal segments. Venous opacification: Major dural sinuses unremarkable for bolus timing. Additional findings: None. CTA NECK: Common carotid arteries: The common carotid arteries are normal in size. Bifurcations: Atherosclerotic disease bilaterally. No flow limitation on the right. Less than 30% narrowing on the left. Cervical internal carotid arteries: No flow limiting stenosis. 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 Small caliber, but widely patent right vertebral artery. Arch anatomy: Conventional. Cleft/filling defect at the origin of the left subclavian artery suggesting dissection versus ulcerated plaque versus artifact. Nonvascular findings: Osseous structures: No acute osseous abnormality. Intact calvarium and skull base. Cervical soft tissues: No adenopathy. Patent aerodigestive tract. Lung apices: No apical consolidation or pneumothorax. IMPRESSION: No identifiable disruption of the cano-white distinction. No intracranial hemorrhage. Dissection versus ulcerated plaque versus artifact at the origin of the left subclavian artery (annotated on sagittal cervical region image [address] angiographic image 334). 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 No major branch occlusion within the intracranial circulation. Signed: JR Matute Robert MD Report Verified Date/Time: 10/02/2018 14:34:45 Reading Location: [facility] Radiology Reading Room Performing Organization Address City/State/Zipcode Phone Number [id number] CTA brain (10/02/2018 1:43 PM CDT) Specimen Narrative Performed At FINAL REPORT [employer] CT, CTANGIOBRAIN, CT, CAROTID, ANGIO BRAIN CT WITHOUT CONTRAST INDICATION: Stroke COMPARISON: None TECHNIQUE: Rapid acquisition spiral images were obtained between the aortic arch and the cranial vertex during intravenous contrast infusion to reconstruct axial images and angiographic 3D maximum intensity projections (MIP). 3-D volumetric reformatted images were created at a dedicated workstation. Precontrast images of the brain were also obtained. Stenosis evaluation reported in compliance with NASCET criteria. DOSE REDUCTION: Dose modulation, iterative reconstruction, and/or weight-based adjustment of the mA/kV was utilized to reduce the radiation dose to as low as reasonably achievable. FINDINGS: CT BRAIN: Cerebral parenchyma: Unremarkable. Midline structures: Normally positioned. Cerebellum and brainstem: Normal. Ventricles: Normal volume. Extra-axial spaces: Unremarkable. Calvarium and skull base: Intact. Paranasal sinuses and mastoid air cells: Visible chambers are clear. Orbital contents: Included portions unremarkable. CTA BRAIN: Internal carotid arteries: Petrous, cavernous and supraclinoid portions patent. Middle cerebral arteries: Patent to distal branches. Anterior cerebral arteries: Patent. Intact A-comm. Basilar system: Patent vertebrobasilar system. Posterior cerebral arteries: configuration of the right posterior-superior vertebral artery. Both arteries demonstrate normal patency beyond the quadrigeminal segments. Venous opacification: Major dural sinuses unremarkable for bolus timing. Additional findings: None. CTA NECK: Common carotid arteries: The common carotid arteries are normal in size. Bifurcations: Atherosclerotic disease bilaterally. No flow limitation on the right. Less than 30% narrowing on the left. Cervical internal carotid arteries: No flow limiting stenosis. 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 Small caliber, but widely patent right vertebral artery. Arch anatomy: Conventional. Cleft/filling defect at the origin of the left subclavian artery suggesting dissection versus ulcerated plaque versus artifact. Nonvascular findings: Osseous structures: No acute osseous abnormality. Intact calvarium and skull base. Cervical soft tissues: No adenopathy. Patent aerodigestive tract. Lung apices: No apical consolidation or pneumothorax. IMPRESSION: No identifiable disruption of the cano-white distinction. No intracranial hemorrhage. Dissection versus ulcerated plaque versus artifact at the origin of the left subclavian artery (annotated on sagittal cervical region image [address] angiographic image 334). 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 No major branch occlusion within the intracranial circulation. Signed: JR Giovani, Jadon BLACK Report Verified Date/Time:10/02/2018 14:34:45 Reading Location: [facility] Radiology Reading Room Procedure Note Interface, External Ris In - 10/02/2018 2:36 PM CDT FINAL REPORT CT, CTANGIO BRAIN, CT, CAROTID, ANGIO BRAIN CT WITHOUT CONTRAST INDICATION: Stroke COMPARISON: None TECHNIQUE: Rapid acquisition spiral images were obtained between the aortic arch and the cranial vertex during intravenous contrast infusion to reconstruct axial images and angiographic 3D maximum intensity projections (MIP). 3-D volumetric reformatted images were created at a dedicated workstation. Precontrast images of the brain were also obtained. Stenosis evaluation reported in compliance with NASCET criteria. DOSE REDUCTION: Dose modulation, iterative reconstruction, and/or weight-based adjustment of the mA/kV was utilized to reduce the radiation dose to as low as reasonably achievable. FINDINGS: CT BRAIN: Cerebral parenchyma: Unremarkable. Midline structures: Normally positioned. Cerebellum and brainstem: Normal. Ventricles: Normal volume. Extra-axial spaces: Unremarkable. Calvarium and skull base: Intact. Paranasal sinuses and mastoid air cells: Visible chambers are clear. Orbital contents: Included portions unremarkable. CTA BRAIN: Internal carotid arteries: Petrous, cavernous and supraclinoid portions patent. Middle cerebral arteries: Patent to distal branches. Anterior cerebral arteries: Patent. Intact A-comm. Basilar system: Patent vertebrobasilar system. Posterior cerebral arteries: configuration of the right posterior-superior vertebral artery. Both arteries demonstrate normal patency beyond the quadrigeminal segments. Venous opacification: Major dural sinuses unremarkable for bolus timing. Additional findings: None. CTA NECK: Common carotid arteries: The common carotid arteries are normal in size. Bifurcations: Atherosclerotic disease bilaterally. No flow limitation on the right. Less than 30% narrowing on the left. Cervical internal carotid arteries: No flow limiting stenosis. 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 Small caliber, but widely patent right vertebral artery. Arch anatomy: Conventional. Cleft/filling defect at the origin of the left subclavian artery suggesting dissection versus ulcerated plaque versus artifact. Nonvascular findings: Osseous structures: No acute osseous abnormality. Intact calvarium and skull base. Cervical soft tissues: No adenopathy. Patent aerodigestive tract. Lung apices: No apical consolidation or pneumothorax. IMPRESSION: No identifiable disruption of the cano-white distinction. No intracranial hemorrhage. Dissection versus ulcerated plaque versus artifact at the origin of the left subclavian artery (annotated on sagittal cervical region image [address] angiographic image 334). 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 No major branch occlusion within the intracranial circulation. Signed: JR Matute Robert MD Report Verified Date/Time: 10/02/2018 14:34:45 Reading Location: [facility] Radiology Reading Room Performing Organization Address City/State/Zipcode Phone Number GE RIS after 10/25/2017 Insurance Payer Benefit Plan / Group Subscriber ID Type Phone Address MEDICARE MEDICARE A B xxxxxxxxxx Medicare ([place]) [address] [id number] Advance Directives For more information, please contact:[address] [phone] Code Status Date Activated Date Inactivated Comments Partial Code 10/03/2018 3:48 PM 10/03/2018 7:19 PM This code status was determined by: Patient Drug Protocol After Arrest Occurs? Yes Mechanical Ventilation with Intubation? No Bag/Mask? No Internal/External Pacemaker? No Transfer to Critical Care? No Chest Compressions? No Defibrillation/Cardioversion? No Full Code 10/02/2018 12:16 PM 10/03/2018 3:48 PM This code status was determined by: Patient
--- OUTSIDE RECORDS SUMMARY | 2018-10-26 12:43 | XMS REPORT ---
:1935 [facility] [address] [place] [address] Care Team Providers Name Role Phone KATERINE MEDELLIN Unavailable Unavailable Problems This patient has no known problems. Allergies, Adverse Reactions, Alerts This patient has no known allergies or adverse reactions. Medications This patient has no known medications. Results Test Description Test Time Test Comments Text Results Atomic Results Result Comments RPR 2018-10-03 13:03:00 Test Item Value Reference Range Comments RPR SCREEN (BEAKER) (test wlnl=527) Nonreactive Nonreactive POCT-GLUCOSE [id number] 12:44:00 Test Item Value Reference Range Comments POC-GLUCOSE METER (BEAKER) 110 mg/dL 70-[address] [facility] [address] [place] [address] (test dukm=8117) [facility] [id number] MR, BRAIN, WITHOUT [id number] 11:33:00FINAL REPORT MRI Brain without contrast Clinical History: [...] punctate acute infarct of the right paracentral bael. There is no acute hemorrhage. There is [...] pontomesencephalic infarcts. No hemorrhage. Signed: Haile Jose MDReport Verified Date/Time: 10/03/2018 11:33:22 Reading Location: [facility] C013V Neuro Reading Room HEMOGLOBIN [id number] 10:49:00 Test Item Value Reference Range Comments HEMOGLOBIN A1C (BEAKER) (test fdvq=054) 5.4 % 4.3-6.1 [id number] 03:51:00 Test Item Value Reference Range Comments PHOSPHORUS (BEAKER) (test xxzj=030) 2.8 mg/dL 2.3-4.7 [id number] 03:51:00 Test Item Value Reference Range Comments MAGNESIUM (BEAKER) (test idqu=634) 1.8 mg/dL 1.6-2.6 FastingBASIC METABOLIC [id number] 03:51:00 Test Item Value Reference Range Comments SODIUM (BEAKER) (test 139 meq/L 136-145 hjtd=500) POTASSIUM (BEAKER) (test 4.1 meq/L 3.5-5.1 pnkj=766) CHLORIDE (BEAKER) (test 109 meq/L 98-107 risw=744) CO2 (BEAKER) (test 26 meq/L 22-29 ojha=328) BLOOD UREA NITROGEN 8 mg/dL 7-21 (BEAKER) (test nzyt=934) CREATININE (BEAKER) (test 0.62 mg/dL 0.57-1.25 vhar=959) GLUCOSE RANDOM (BEAKER) 85 mg/dL 70-105 (test paey=573) CALCIUM (BEAKER) (test 8.9 mg/dL 8.4-10.2 kkrg=024) EGFR (BEAKER) (test 91 mL/min/1.73 sq m ESTIMATED GFR IS NOT ykbc=9914) ACCURATE CREATININE CLEARANCE IN PREDICTING GLOMERULAR FILTRATION RATE. ESTIMATED GFR IS NOT APPLICABLE FOR DIALYSIS PATIENTS. FastingLIPID [id number] 03:51:00 Test Item Value Reference Range Comments TRIGLYCERIDES (BEAKER) (test bzhb=108) 100 mg/dL CHOLESTEROL (BEAKER) (test nezg=490) 253 mg/dL HDL CHOLESTEROL (BEAKER) (test sbxc=308) 47 mg/dL LDL CHOLESTEROL CALCULATED (BEAKER) (test 186 mg/dL hwcz=715) Triglyceride Reference Range: Low Risk <150 Borderline 150- 199 High Risk 200-499 Very High Risk >=500Cholesterol Reference Range: Low Risk <200 Borderline 200-239 High Risk > 240HDL Cholesterol Reference Range: Low Risk >=60 High Risk <40LDL Cholesterol Reference Range: Optimal <100 Near Optimal 100-129 Borderline 130-159 High 160-189 Very High >=190 FastingCBC W/PLT COUNT & AUTO [id number] 03:35:00 Test Item Value Reference Range Comments WHITE BLOOD CELL COUNT (BEAKER) (test ouvn=980) 4.9 K/ L 3.5-10.5 RED BLOOD CELL COUNT (BEAKER) (test lpyz=931) 3.58 M/ L 3.93-5.22 HEMOGLOBIN (BEAKER) (test cfvn=686) 10.6 GM/DL 11.2-15.7 HEMATOCRIT (BEAKER) (test ieky=209) 33.8 % 34.1-44.9 MEAN CORPUSCULAR VOLUME (BEAKER) (test ufnt=041) 94.4 fL 79.4-94.8 MEAN CORPUSCULAR HEMOGLOBIN (BEAKER) (test 29.6 pg 25.6-32.2 mrla=595) MEAN CORPUSCULAR HEMOGLOBIN CONC (BEAKER) (test 31.4 GM/DL 32.2-35.5 uzzp=669) RED CELL DISTRIBUTION WIDTH (BEAKER) (test 12.4 % 11.7-14.4 dxlv=451) PLATELET COUNT (BEAKER) (test nlib=506) 144 K/CU MM 150-450 MEAN PLATELET VOLUME (BEAKER) (test tylc=084) 10.2 fL 9.4-12.3 NUCLEATED RED BLOOD CELLS (BEAKER) (test 0 /100 WBC 0-0 spmd=285) NEUTROPHILS RELATIVE PERCENT (BEAKER) (test 61 % yngq=735) LYMPHOCYTES RELATIVE PERCENT (BEAKER) (test 24 % ztwr=756) MONOCYTES RELATIVE PERCENT (BEAKER) (test 12 % stfv=642) EOSINOPHILS RELATIVE PERCENT (BEAKER) (test 2 % uomt=026) BASOPHILS RELATIVE PERCENT (BEAKER) (test 1 % kyde=523) NEUTROPHILS ABSOLUTE COUNT (BEAKER) (test 3.01 K/ L 1.56-6.13 nrnc=241) LYMPHOCYTES ABSOLUTE COUNT (BEAKER) (test 1.17 K/ L 1.18-3.74 wjbq=844) MONOCYTES ABSOLUTE COUNT (BEAKER) (test 0.60 K/ L 0.24-0.36 ynae=914) EOSINOPHILS ABSOLUTE COUNT (BEAKER) (test 0.11 K/ L 0.04-0.36 wgve=991) BASOPHILS ABSOLUTE COUNT (BEAKER) (test 0.03 K/ L 0.01-0.08 cape=461) IMMATURE GRANULOCYTES-RELATIVE PERCENT (BEAKER) 0 % 0-1 (test vpue=7070) VITAMIN [id number] 15:42:00 Test Item Value Reference Range Comments VITAMIN B12 (BEAKER) (test lpur=400) 290 pg/mL 213-816 FOLATE, [id number] 15:42:00 Test Item Value Reference Range Comments FOLATE (BEAKER) (test sggs=146) 13.6 ng/mL >=7.0 TSH/FREE T4 IF [id number] 15:42:00 Test Item Value Reference Range Comments THYROID STIMULATING HORMONE (BEAKER) (test 0.84 uIU/mL 0.35-4.94 ghkv=986) [id number] 15:08:00 Test Item Value Reference Range Comments PHOSPHORUS (BEAKER) (test ubei=873) 3.0 mg/dL 2.3-4.7 [id number] 15:08:00 Test Item Value Reference Range Comments MAGNESIUM (BEAKER) (test vecv=979) 1.6 mg/dL 1.6-2.6 CT, CTANGIO [id number] 14:34:00FINAL REPORT CT, CTANGIO BRAIN, CT, CAROTID, ANGIOBRAIN CT WITHOUT CONTRAST INDICATION: Stroke COMPARISON: None TECHNIQUE:Rapid acquisition spiral images were obtained between the aortic arch and the cranial vertex during intravenous contrast infusion to reconstruct axial images and angiographic 3D maximum intensity projections (MIP). 3-D volumetric reformatted images were created at a dedicated workstation. Precontrast images of the brain were also obtained. Stenosis evaluation reported in compliance with NASCET criteria. DOSE REDUCTION : Dose modulation, iterative reconstruction, and/or weight-based adjustment of the mA/kV was utilized to reduce the radiation dose to as low as reasonably achievable. FINDINGS:CT BRAIN:Cerebral parenchyma: Unremarkable.Midline structures: Normally positioned.Cerebellum and brainstem: Normal.Ventricles: Normal volume.Extra-axial spaces: Unremarkable.Calvarium and skull base: Intact.Paranasal sinuses and mastoid air cells: Visible chambersare clear.Orbital contents: Included portions unremarkable. CTA BRAIN:Internal carotid arteries: Petrous, cavernous and supraclinoid portions patent. Middle cerebral arteries: Patent to distal branches.Anterior cerebral arteries: Patent. Intact A-comm.Basilar system: Patent vertebrobasilar system.Posterior cerebral arteries: configuration of the right posterior-superior vertebral artery. Both arteries demonstrate normal patency beyond the quadrigeminal segments.Venous opacification: Major dural sinuses unremarkable for bolus timing.Additional findings: None. CTA NECK:Common carotid arteries: The common carotid arteries are normal in size. Bifurcations: Atherosclerotic disease bilaterally. No flow limitation on the right. Less than 30% narrowing on the left. 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 Small caliber, but widely patent right vertebral artery.Arch anatomy: Conventional. Cleft/filling defect at the origin of the left subclavian artery suggesting dissection versus ulcerated plaque versus artifact.Nonvascular findings:Osseous structures: No acute osseous abnormality. Intact calvarium and skull base.Cervical soft tissues: No adenopathy. Patent aerodigestive tract.Lung apices: No apical consolidation or pneumothorax. IMPRESSION: No identifiable disruption of the cano-white distinction. No intracranial hemorrhage. Dissection versus ulcerated plaque versus artifact at the origin of the left subclavian artery (annotated on sagittal cervical region image [address] angiographic image 334). 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 Atretic caliber of theright vertebral artery. No major branch occlusion within the intracranial circulation. Signed: JR Matute Robert MDReport Verified Date/Time: 10/2018 14:34:45 Reading Location: [facility] Reading Room CT, CAROTID, [id number] 14:34:00FINAL REPORT CT, CTANGIO BRAIN, CT, CAROTID, ANGIOBRAIN CT WITHOUT CONTRAST INDICATION: Stroke COMPARISON: None TECHNIQUE:Rapid acquisition spiral images were obtained between the aortic arch and the cranial vertex during intravenous contrast infusion to reconstruct axial images and angiographic 3D maximum intensity projections (MIP). 3-D volumetric reformatted images were created at a dedicated workstation. Precontrast images of the brain were also obtained. Stenosis evaluation reported in compliance with NASCET criteria. DOSE REDUCTION : Dose modulation, iterative reconstruction, and/or weight-based adjustment of the mA/kV was utilized to reduce the radiation dose to as low as reasonably achievable. FINDINGS:CT BRAIN:Cerebral parenchyma: Unremarkable.Midline structures: Normally positioned.Cerebellum and brainstem: Normal.Ventricles: Normal volume.Extra-axial spaces: Unremarkable.Calvarium and skull base: Intact.Paranasal sinuses and mastoid air cells: Visible chambersare clear.Orbital contents: Included portions unremarkable. CTA BRAIN:Internal carotid arteries: Petrous, cavernous and supraclinoid portions patent. Middle cerebral arteries: Patent to distal branches.Anterior cerebral arteries: Patent. Intact A-comm.Basilar system: Patent vertebrobasilar system.Posterior cerebral arteries: configuration of the right posterior-superior vertebral artery. Both arteries demonstrate normal patency beyond the quadrigeminal segments.Venous opacification: Major dural sinuses unremarkable for bolus timing.Additional findings: None. CTA NECK:Common carotid arteries: The common carotid arteries are normal in size. Bifurcations: Atherosclerotic disease bilaterally. No flow limitation on the right. Less than 30% narrowing on the left. 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 Small caliber, but widely patent right vertebral artery.Arch anatomy: Conventional. Cleft/filling defect at the origin of the left subclavian artery suggesting dissection versus ulcerated plaque versus artifact.Nonvascular findings:Osseous structures: No acute osseous abnormality. Intact calvarium and skull base.Cervical soft tissues: No adenopathy. Patent aerodigestive tract.Lung apices: No apical consolidation or pneumothorax. IMPRESSION: No identifiable disruption of the cano-white distinction. No intracranial hemorrhage. Dissection versus ulcerated plaque versus artifact at the origin of the left subclavian artery (annotated on sagittal cervical region image [address] angiographic image 334). 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 Atretic caliber of theright vertebral artery. No major branch occlusion within the intracranial circulation. Signed: JR Matute Robert MDReport Verified Date/Time: 10/2018 14:34:45 Reading Location: [facility] Radiology Reading Room BASI METABOLIC [id number] 13:19:00 Test Item Value Reference Range Comments SODIUM (BEAKER) (test 136 meq/L 136-145 masu=842) POTASSIUM (BEAKER) (test 3.9 meq/L 3.5-5.1 Specimen slightly fcpu=226) hemolyzed CHLORIDE (BEAKER) (test 106 meq/L 98-107 qayi=697) CO2 (BEAKER) (test 22 meq/L 22-29 okpf=811) BLOOD UREA NITROGEN 13 mg/dL 7-21 (BEAKER) (test owfu=915) CREATININE (BEAKER) (test 0.61 mg/dL 0.57-1.25 Specimen slightly ppcy=090) hemolyzed GLUCOSE RANDOM (BEAKER) 111 mg/dL 70-105 (test ggwl=540) CALCIUM (BEAKER) (test 8.3 mg/dL 8.4-10.2 uoic=575) EGFR (BEAKER) (test 93 mL/min/1.73 sq m ESTIMATED GFR IS NOT qpdk=2541) ACCURATE CREATININE CLEARANCE IN PREDICTING GLOMERULAR FILTRATION RATE. ESTIMATED GFR IS NOT APPLICABLE FOR DIALYSIS PATIENTS. CBC W/PLT COUNT & AUTO [id number] 13:06:00 Test Item Value Reference Range Comments WHITE BLOOD CELL COUNT (BEAKER) (test sohf=640) 4.7 K/ L 3.5-10.5 RED BLOOD CELL COUNT (BEAKER) (test whkl=588) 3.62 M/ L 3.93-5.22 HEMOGLOBIN (BEAKER) (test mhiz=276) 10.9 GM/DL 11.2-15.7 HEMATOCRIT (BEAKER) (test rsex=276) 34.0 % 34.1-44.9 MEAN CORPUSCULAR VOLUME (BEAKER) (test lktu=213) 93.9 fL 79.4-94.8 MEAN CORPUSCULAR HEMOGLOBIN (BEAKER) (test 30.1 pg 25.6-32.2 ueit=638) MEAN CORPUSCULAR HEMOGLOBIN CONC (BEAKER) (test 32.1 GM/DL 32.2-35.5 brot=078) RED CELL DISTRIBUTION WIDTH (BEAKER) (test 12.2 % 11.7-14.4 yxnj=484) PLATELET COUNT (BEAKER) (test jdau=217) 163 K/CU MM 150-450 MEAN PLATELET VOLUME (BEAKER) (test xahz=754) 10.6 fL 9.4-12.3 NUCLEATED RED BLOOD CELLS (BEAKER) (test 0 /100 WBC 0-0 xuqo=438) NEUTROPHILS RELATIVE PERCENT (BEAKER) (test 77 % ktsk=261) LYMPHOCYTES RELATIVE PERCENT (BEAKER) (test 15 % gbns=403) MONOCYTES RELATIVE PERCENT (BEAKER) (test 7 % uduv=633) EOSINOPHILS RELATIVE PERCENT (BEAKER) (test 1 % pjsj=959) BASOPHILS RELATIVE PERCENT (BEAKER) (test 1 % ljgr=397) NEUTROPHILS ABSOLUTE COUNT (BEAKER) (test 3.63 K/ L 1.56-6.13 saiw=811) LYMPHOCYTES ABSOLUTE COUNT (BEAKER) (test 0.69 K/ L 1.18-3.74 ryef=526) MONOCYTES ABSOLUTE COUNT (BEAKER) (test 0.34 K/ L 0.24-0.36 eret=170) EOSINOPHILS ABSOLUTE COUNT (BEAKER) (test 0.04 K/ L 0.04-0.36 rgbq=939) BASOPHILS ABSOLUTE COUNT (BEAKER) (test 0.03 K/ L 0.01-0.08 dzia=339) IMMATURE GRANULOCYTES-RELATIVE PERCENT (BEAKER) 0 % 0-1 (test plnd=7978)
--- NOTE | 2018-10-26 14:30 | EKG ---
Test Date: 2018-10-26 Test Time: 04:16:08 Qc Manager: RR MEASUREMENT RESULTS: Intervals: Rate: 55 NJ: 196 QRSD: 104 QT: 398 QTc: 380 Williams: P: 27 NJ: 196 QRS: -42 T: 100 INTERPRETIVE STATEMENTS: Sinus bradycardia Left axis deviation Minimal voltage criteria for LVH, may be normal variant Possible Anterior infarct, age undetermined Abnormal ECG Compared to ECG 10/02/2018 08:28:11 Left-axis deviation now present Myocardial infarct finding now present Sinus rhythm no longer present Incomplete right bundle-branch block no longer present Left anterior fascicular block no longer present Electronically Signed On 10-26-18 14:29:00 CDT by Taran Foss
--- NOTE | 2018-10-26 14:53 | RAD REPORT ---
EXAM DESCRIPTION: CT - Head Brain Wo Cont - 10/26/2018 11:44 am CLINICAL HISTORY: Numbness COMPARISON: October 02, 2018 TECHNIQUE: Computed axial tomography of the head was obtained. IV contrast was not requested. All CT scans are performed using dose optimization technique as appropriate and may include automated exposure control or mA/KV adjustment according to patient size. FINDINGS: A 13 millimeter low-density area within the right cerebellum has developed consistent with an infarction. 3.5 millimeter low-density area within the left thalamus has become more distinct. An intracranial bleed is not noted. The ventricles are normal in caliber. No extra-axial fluid collection is noted. Fluid within the sinuses/ mastoids is not seen. 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
--- NOTE | 2018-10-26 14:55 | RAD REPORT ---
EXAM DESCRIPTION: CTHead angio10/26/2018 11:44 am CLINICAL HISTORY: Numbness COMPARISON: None TECHNIQUE: CT angiogram of the head was obtained. 3D MIPS reconstruction performed. All CT scans are performed using dose optimization technique as appropriate and may include automated exposure control or mA/KV adjustment according to patient size. FINDINGS: The basilar, internal carotid, anterior cerebral, middle cerebral and posterior cerebral a rteries are normal caliber. An aneurysm is not seen. origin left posterior cerebral artery A significant stenosis is not noted. IMPRESSION: No significant abnormality displayed
--- NOTE | 2018-10-26 15:02 | RAD REPORT ---
EXAM DESCRIPTION: Tere Angio10/26/2018 11:45 am CLINICAL HISTORY: Numbness COMPARISON: None TECHNIQUE: 50 cc Isovue 370 was administered intravenously. 3D MIP reconstruction performed All CT scans are performed using dose optimization technique as appropriate and may include automated exposure control or mA/KV adjustment according to patient size. FINDINGS: Portions of the left vertebral artery are occluded. The distal left vertebral artery is pa tent. The right vertebral artery appears unremarkable. Plaque within the proximal left internal carotid artery resulting in an approximately 45% stenosis [id number] calcified plaque within the left carotid bulb does not result in a significant steno sis. 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 The distal left vertebral artery is patent. Prior exams are not available for comparison to determine if this is acute or chronic NASCET criteria used. Mild 0-49% stenosis Moderate 50-69% stenosis Severe 70-99% stenosis
== END 2018-10-26 07:28 | disposition home or self-care (01) ==
LOC: ER 03:41
DX: R42 Dizziness and giddiness (principal); I10 Essential (primary) hypertension; E78.5 Hyperlipidemia, unspecified; Z79.82 Long term (current) use of aspirin; Z86.73 Personal history of transient ischemic attack (TIA), and cerebral infarction without residual deficits
CPT/HCPCS: 93005; 85025; 80048; 36415; 83735; 80076; 84484; 83690; 70450; 70496; 70498; 99284; Q9967

== ENCOUNTER 2018-11-25 10:41 | Emergency (ER) | payer OTHER ==
--- OUTSIDE RECORDS SUMMARY | 2018-11-25 10:44 | XMS REPORT ---
:1935 [facility] Address [address] [place] [address] Care Team Providers Name Role Phone KATERINE MEDELLIN Unavailable Unavailable Problems This patient has no known problems. Allergies, Adverse Reactions, Alerts This patient has no known allergies or adverse reactions. Medications This patient has no known medications. Results Test Description Test Time Test Comments Text Results Atomic Results Result Comments RPR 2018-10-03 13:03:00 Test Item Value Reference Range Comments RPR SCREEN (BEAKER) (test fyrp=175) Nonreactive Nonreactive POCT-GLUCOSE [id number] 12:44:00 Test Item Value Reference Range Comments POC-GLUCOSE METER (BEAKER) 110 mg/dL 70-110 TESTED AT [facility] [address] [facility] (test txca=0047) [facility] [address] MR, BRAIN, WITHOUT [id number] 11:33:00FINAL REPORT MRI Brain without contrast Clinical [...] MDReport Verified Date/Time: 10/03/2018 11:33:22 Reading Location: [facility] C013V Neuro Reading Room HEMOGLOBIN [id number] 10:49:00 Test Item Value Reference Range Comments HEMOGLOBIN A1C (BEAKER) (test qzsx=727) 5.4 % 4.3-6.1 [id number] 03:51:00 Test Item Value Reference Range Comments PHOSPHORUS (BEAKER) (test eedr=783) 2.8 mg/dL 2.3-4.7 [id number] 03:51:00 Test Item Value Reference Range Comments MAGNESIUM (BEAKER) (test argk=551) 1.8 mg/dL 1.6-2.6 FastingBASIC METABOLIC [id number] 03:51:00 Test Item Value Reference Range Comments SODIUM (BEAKER) (test 139 meq/L 136-145 hwkb=421) POTASSIUM (BEAKER) (test 4.1 meq/L 3.5-5.1 faym=177) CHLORIDE (BEAKER) (test 109 meq/L 98-107 attb=696) CO2 (BEAKER) (test 26 meq/L 22-29 kbzd=434) BLOOD UREA NITROGEN 8 mg/dL 7-21 (BEAKER) (test royq=573) CREATININE (BEAKER) (test 0.62 mg/dL 0.57-1.25 ityl=540) GLUCOSE RANDOM (BEAKER) 85 mg/dL 70-105 (test vudn=866) CALCIUM (BEAKER) (test 8.9 mg/dL 8.4-10.2 ekuh=607) EGFR (BEAKER) (test 91 mL/min/1.73 sq m ESTIMATED GFR IS NOT zhee=7952) ACCURATE CREATININE CLEARANCE IN PREDICTING GLOMERULAR FILTRATION RATE. ESTIMATED GFR IS NOT APPLICABLE FOR DIALYSIS PATIENTS. FastingLIPID [id number] 03:51:00 Test Item Value Reference Range Comments TRIGLYCERIDES (BEAKER) (test kgag=696) 100 mg/dL CHOLESTEROL (BEAKER) (test txvl=110) 253 mg/dL HDL CHOLESTEROL (BEAKER) (test cvrt=414) 47 mg/dL LDL CHOLESTEROL CALCULATED (BEAKER) (test 186 mg/dL tcen=836) Triglyceride Reference Range: Low Risk <150 Borderline 150- 199 High Risk 200-499 Very High Risk >=500Cholesterol Reference Range: Low Risk <200 Borderline 200-239 High Risk > 240HDL Cholesterol Reference Range: Low Risk >=60 High Risk <40LDL Cholesterol Reference Range: Optimal <100 Near Optimal 100-129 Borderline 130-159 High 160-189 Very High >=190 FastingCBC W/PLT COUNT & AUTO [id number] 03:35:00 Test Item Value Reference Range Comments WHITE BLOOD CELL COUNT (BEAKER) (test mlkp=158) 4.9 K/ L 3.5-10.5 RED BLOOD CELL COUNT (BEAKER) (test zzng=558) 3.58 M/ L 3.93-5.22 HEMOGLOBIN (BEAKER) (test nyyv=041) 10.6 GM/DL 11.2-15.7 HEMATOCRIT (BEAKER) (test rdod=098) 33.8 % 34.1-44.9 MEAN CORPUSCULAR VOLUME (BEAKER) (test odkk=722) 94.4 fL 79.4-94.8 MEAN CORPUSCULAR HEMOGLOBIN (BEAKER) (test 29.6 pg 25.6-32.2 ydws=027) MEAN CORPUSCULAR HEMOGLOBIN CONC (BEAKER) (test 31.4 GM/DL 32.2-35.5 wnvf=563) RED CELL DISTRIBUTION WIDTH (BEAKER) (test 12.4 % 11.7-14.4 rpla=733) PLATELET COUNT (BEAKER) (test gpxy=923) 144 K/CU MM 150-450 MEAN PLATELET VOLUME (BEAKER) (test fcph=092) 10.2 fL 9.4-12.3 NUCLEATED RED BLOOD CELLS (BEAKER) (test 0 /100 WBC 0-0 zvca=525) NEUTROPHILS RELATIVE PERCENT (BEAKER) (test 61 % kxlv=167) LYMPHOCYTES RELATIVE PERCENT (BEAKER) (test 24 % srcp=521) MONOCYTES RELATIVE PERCENT (BEAKER) (test 12 % uwnp=415) EOSINOPHILS RELATIVE PERCENT (BEAKER) (test 2 % unwg=129) BASOPHILS RELATIVE PERCENT (BEAKER) (test 1 % pcfa=924) NEUTROPHILS ABSOLUTE COUNT (BEAKER) (test 3.01 K/ L 1.56-6.13 idhv=390) LYMPHOCYTES ABSOLUTE COUNT (BEAKER) (test 1.17 K/ L 1.18-3.74 kzao=831) MONOCYTES ABSOLUTE COUNT (BEAKER) (test 0.60 K/ L 0.24-0.36 gbls=305) EOSINOPHILS ABSOLUTE COUNT (BEAKER) (test 0.11 K/ L 0.04-0.36 rfzg=541) BASOPHILS ABSOLUTE COUNT (BEAKER) (test 0.03 K/ L 0.01-0.08 mwlm=102) IMMATURE GRANULOCYTES-RELATIVE PERCENT (BEAKER) 0 % 0-1 (test rtdg=8380) VITAMIN [id number] 15:42:00 Test Item Value Reference Range Comments VITAMIN B12 (BEAKER) (test feou=260) 290 pg/mL 213-816 FOLATE, [id number] 15:42:00 Test Item Value Reference Range Comments FOLATE (BEAKER) (test fwhs=614) 13.6 ng/mL >=7.0 TSH/FREE T4 IF [id number] 15:42:00 Test Item Value Reference Range Comments THYROID STIMULATING HORMONE (BEAKER) (test 0.84 uIU/mL 0.35-4.94 decn=921) [id number] 15:08:00 Test Item Value Reference Range Comments PHOSPHORUS (BEAKER) (test sczy=102) 3.0 mg/dL 2.3-4.7 [id number] 15:08:00 Test Item Value Reference Range Comments MAGNESIUM (BEAKER) (test ktaw=288) 1.6 mg/dL 1.6-2.6 CT, CTANGIO [id number] 14:34:00FINAL REPORT CT, CTANGIO BRAIN, CT, CAROTID, [...] MDReport Verified Date/Time: 10/2018 14:34:45 Reading Location: [facility] Radiology Reading Room CT, CAROTID, [id number] 14:34:00FINAL REPORT CT, CTANGIO BRAIN, CT, CAROTID, [...] the intracranial circulation. Signed: JR Giovani, Jadon Walton Verified Date/Time: 10/2018 14:34:45 Reading Location: [facility] Radiology Reading Room BASI METABOLIC [id number] 13:19:00 Test Item Value Reference Range Comments SODIUM (BEAKER) (test 136 meq/L 136-145 qecl=878) POTASSIUM (BEAKER) (test 3.9 meq/L 3.5-5.1 Specimen slightly ewvx=743) hemolyzed CHLORIDE (BEAKER) (test 106 meq/L 98-107 srai=216) CO2 (BEAKER) (test 22 meq/L 22-29 qcnj=448) BLOOD UREA NITROGEN 13 mg/dL 7-21 (BEAKER) (test jfmj=577) CREATININE (BEAKER) (test 0.61 mg/dL 0.57-1.25 Specimen slightly jklj=078) hemolyzed GLUCOSE RANDOM (BEAKER) 111 mg/dL 70-105 (test bubj=436) CALCIUM (BEAKER) (test 8.3 mg/dL 8.4-10.2 xlkd=116) EGFR (BEAKER) (test 93 mL/min/1.73 sq m ESTIMATED GFR IS NOT tdyk=5988) ACCURATE CREATININE CLEARANCE IN PREDICTING GLOMERULAR FILTRATION RATE. ESTIMATED GFR IS NOT APPLICABLE FOR DIALYSIS PATIENTS. CBC W/PLT COUNT & AUTO [id number] 13:06:00 Test Item Value Reference Range Comments WHITE BLOOD CELL COUNT (BEAKER) (test nnve=855) 4.7 K/ L 3.5-10.5 RED BLOOD CELL COUNT (BEAKER) (test jbnc=482) 3.62 M/ L 3.93-5.22 HEMOGLOBIN (BEAKER) (test wlrl=410) 10.9 GM/DL 11.2-15.7 HEMATOCRIT (BEAKER) (test yoem=988) 34.0 % 34.1-44.9 MEAN CORPUSCULAR VOLUME (BEAKER) (test efkz=246) 93.9 fL 79.4-94.8 MEAN CORPUSCULAR HEMOGLOBIN (BEAKER) (test 30.1 pg 25.6-32.2 jlea=203) MEAN CORPUSCULAR HEMOGLOBIN CONC (BEAKER) (test 32.1 GM/DL 32.2-35.5 kgoz=914) RED CELL DISTRIBUTION WIDTH (BEAKER) (test 12.2 % 11.7-14.4 qxqx=958) PLATELET COUNT (BEAKER) (test ddwp=649) 163 K/CU MM 150-450 MEAN PLATELET VOLUME (BEAKER) (test nrjl=761) 10.6 fL 9.4-12.3 NUCLEATED RED BLOOD CELLS (BEAKER) (test 0 /100 WBC 0-0 kitq=832) NEUTROPHILS RELATIVE PERCENT (BEAKER) (test 77 % bcsm=304) LYMPHOCYTES RELATIVE PERCENT (BEAKER) (test 15 % asow=082) MONOCYTES RELATIVE PERCENT (BEAKER) (test 7 % hkjc=987) EOSINOPHILS RELATIVE PERCENT (BEAKER) (test 1 % qrra=799) BASOPHILS RELATIVE PERCENT (BEAKER) (test 1 % ibyc=086) NEUTROPHILS ABSOLUTE COUNT (BEAKER) (test 3.63 K/ L 1.56-6.13 uymb=156) LYMPHOCYTES ABSOLUTE COUNT (BEAKER) (test 0.69 K/ L 1.18-3.74 vltx=067) MONOCYTES ABSOLUTE COUNT (BEAKER) (test 0.34 K/ L 0.24-0.36 ewhh=617) EOSINOPHILS ABSOLUTE COUNT (BEAKER) (test 0.04 K/ L 0.04-0.36 ojde=463) BASOPHILS ABSOLUTE COUNT (BEAKER) (test 0.03 K/ L 0.01-0.08 suxf=992) IMMATURE GRANULOCYTES-RELATIVE PERCENT (BEAKER) 0 % 0-1 (test qfsf=6257)
--- OUTSIDE RECORDS SUMMARY | 2018-11-25 10:44 | XMS REPORT | Clinical Summary ---
:1935 Author Organization [facility] Address [address] [place] [address] Care Team Providers Name Role Phone Unavailable [...] Encounters Date Type Specialty Care Team Description 10/03/2018 Travel 10/02/2018 - Hospital Encounter Intensive Care Joel Vidal Stroke aborted by 10/03/2018 MD Jovani administration of thrombolytic agent ([facility]) 10/02/2018 Orders Only General Internal Medicine after 11/24/2017 Social History Tobacco Use Types Packs/Day Years [...] 428 ms QTC Calculation(Bazett) 409 ms P [place] 12 degrees R [place] -41 degrees T [place] 23 degrees Sinus bradycardia Left axis deviation [...] (7) Routine 10/02/2018 12:58 PM CDT after 11/24/2017 Results EKG-SCANNED (10/05/2018 11:33 AM CDT) Narrative Performed At RHYTHM STRIP - SCAN (10/05/2018 11:33 AM CDT) Narrative Performed At ECHOCARDIOGRAM REPORT - SCAN (10/03/2018 9:21 PM CDT) Narrative Performed At POC-Glucose meter (10/03/2018 12:42 PM CDT) POC-Glucose Meter 110Comment: TESTED AT 70 - 110 mg/dL [address] [address] Specimen Blood Performing Organization Address City/State/Zipcode Phone Number [place] [phone] CENTER MR brain without IV contrast (10/03/2018 10:35 AM CDT) Specimen Narrative Performed At FINAL REPORT [facility] MRI Brain without contrast Clinical History: Cerebral [...] MD Report Verified Date/Time:10/03/2018 11:33:22 Reading Location: [address] Neuro Reading Room Procedure Note Interface, [...] Report Verified Date/Time: 10/03/2018 11:33:22 Reading Location: [address] Neuro Reading Room Performing Organization Address City/State/Zipcode Phone Number [facility] CBC with platelet count + automated diff (10/03/2018 3:15 AM CDT)Only the most recent of2 resultswithin the time period is included. WBC 4.9 3.5 - 10.5 K/L [facility] RBC 3.58 (L) 3.93 - 5.22 M/L [facility] Hemoglobin 10.6 (L) 11.2 - 15.7 GM/DL [facility] Hematocrit 33.8 (L) 34.1 - 44.9 % [facility] MCV 94.4 79.4 - 94.[address] [facility] MCH 29.6 25.6 - 32.[address] [facility] MCHC 31.4 (L) 32.2 - 35.5 GM/DL [facility] RDW 12.4 11.7 - 14.4 % [facility] Platelets 144 (L) 150 - 450 K/CU MM [facility] MPV 10.2 9.4 - 12.[address] [facility] nRBC 0 0 - 0 /[address] [facility] % Neutros 61 % [facility] % Lymphs 24 % [facility] % Monos 12 % [facility] % Eos 2 % [facility] % Baso 1 % [facility] # Neutros 3.01 1.56 - 6.13 K/L [facility] # Lymphs 1.17 (L) 1.18 - 3.74 K/L [facility] # Monos 0.60 (H) 0.24 - 0.36 K/L [facility] # Eos 0.11 0.04 - 0.36 K/L [facility] # Baso 0.03 0.01 - 0.08 K/L [facility] Immature Granulocytes-Relative 0 0 - 1 % [facility] Specimen Blood Performing Organization Address City/State/Zipcode Phone Number [address] [phone] CENTER Phosphorus (10/03/2018 3:15 AM CDT)Only the most recent of2 resultswithin the time period is included. Phosphorus 2.8 2.3 - 4.7 mg/dL [facility] Specimen Blood Narrative Performed At Fasting [facility] Performing Organization Address City/State/[facility] Phone Number [address] [address] [phone] CENTER Magnesium (10/03/2018 3:15 AM CDT)Only the most recent of2 resultswithin the time period is included. Magnesium 1.8 1.6 - 2.6 mg/dL [facility] Specimen Blood Narrative Performed At Fasting [facility] Performing Organization Address City/State/[facility] Phone Number [address] [address] CENTER Hemoglobin A1c (10/03/2018 3:15 AM CDT) Hemoglobin A1C 5.4 4.3 - 6.1 % [facility] Specimen Blood Performing Organization Address City/State/Zipcode Phone Number [address] [phone] CENTER Fasting lipid panel (10/03/2018 3:15 AM CDT) Triglycerides 100 mg/dL [facility] Cholesterol 253 mg/dL [facility] HDL 47 mg/dL [facility] LDL Calculated 186 mg/dL [facility] Specimen Blood Narrative Performed At Triglyceride Reference Range: [facility] Low Risk <150 Qwfadpgssp196-100 High Risk 200-499 Very High Risk>=500 Cholesterol Reference Range: Low Risk <200 Uxsjginxrk419-552 High Risk>240 HDL Cholesterol Reference Range: Low Risk >=60 High Risk <40 LDL Cholesterol Reference Range: Optimal<100 Near Biqjsly267-166 Vcydrtyqby229-360 Fezd000-708 Very High >=190 Fasting Performing Organization Address [facility] Phone Number [place] [phone] [place] [address] [phone] CLYDE Basic Metabolic Panel (10/03/2018 3:15 AM CDT)Only the most recent of2 resultswithin the time period is included. Sodium 139 136 - 145 meq/L [facility] Potassium 4.1 3.5 - 5.1 meq/L [facility] Chloride 109 (H) 98 - 107 meq/L [facility] CO2 26 22 - 29 meq/L [facility] BUN 8 7 - 21 mg/dL [facility] Creatinine 0.62 0.57 - 1.25 mg/dL [facility] Glucose 85 70 - 105 mg/dL [facility] Calcium 8.9 8.4 - 10.2 mg/dL [facility] EGFR 91Comment: ESTIMATED GFR IS mL/min/1.73 sq m [facility] NOT ACCURATE CREATININE [facility] CENTER CLEARANCE IN PREDICTING GLOMERULAR FILTRATION RATE. ESTIMATED GFR IS NOT APPLICABLE FOR DIALYSIS PATIENTS. Specimen Blood Narrative Performed At Fasting [facility] Performing Organization Address City/[facility] Phone Number [address] [phone] CLYDE 2D Echo W/Doppler(CW/PW/Color) (10/03/2018 2:45 AM CDT) Ejection Fraction [facility] Specimen Narrative Performed At Transthoracic Echocardiography Report (TTE) [facility] [employer] [facility] Demographics Patient NameWLALI CYR Date of Study10/03/2018 Female Visit [id number] Unknown [facility] [id number] Number Date of 1935Referring Joel Vidal MD Physician Age 83 year(s)Inventory Management Specialist Fang Montoya RDCS, RVT Take Off Worker MailynInterpreting Lopez Quiroz MD Procedure Type of [...] of Study 10/03/2018 Gender Female Visit Number [id number] Race Unknown Room Number 7406 Number Date of 1935 Referring Joel Vidal MD Physician Age 83 year(s) Inventory Management Specialist Fang Montoya RD, RVT Take Off Worker Sole Interpreting Frank Quiroz Physician Procedure Type [...] TR Gradient: 21.77 mmHg Performing Organization Address City/[facility] Phone Number [facility] E[facility] HEARTLAB MKCKESSON CPACS TSH/Free T4 If Indicated (10/02/2018 2:35 PM CDT) TSH 0.84 0.35 - 4.94 uIU/mL [facility] Specimen Blood Performing Organization Address [facility] Phone Number [address] [address] CENTER RPR (10/02/2018 2:35 PM CDT) RPR Nonreactive Nonreactive [facility] Specimen Blood Performing Organization Address [facility] Phone Number [address] [address] [phone] CLYDE Folate, Serum (10/02/2018 2:35 PM CDT) Folate 13.6 >=7.0 ng/mL [facility] Specimen Blood Performing Organization Address [facility] Phone Number [address] [address] CLYDE Vitamin B12 (10/02/2018 2:35 PM CDT) Vitamin B12 290 213 - 816 pg/mL [facility] Specimen Blood Performing Organization Address [facility] Phone Number [address] [address] [phone] CLYDE ECG 12 lead (10/02/2018 2:17 PM CDT) Specimen Narrative Performed At Ventricular Rate 55 BPM [place] Atrial Rate 55 BPM P-R Interval 188 ms QRS Duration 104 ms Q-T Interval 428 ms QTC Calculation(Bazett) 409 ms P [place] 12 degrees R [place] -41 degrees T [place] 23 degrees Sinus bradycardia Left anterior fascicular block Abnormal ECG No previous ECGs available Confirmed by MD BELTRE JORGE ([id number]) on 10/03/2018 11:32:14 AM Procedure Note Interface, External Ris In - 10/03/2018 11:32 AM CDT Ventricular Rate 55 BPM Atrial Rate 55 BPM P-R Interval 188 ms QRS Duration 104 ms Q-T Interval 428 ms QTC Calculation(Bazett) 409 ms P [place] 12 degrees R [place] -41 degrees T [place] 23 degrees Sinus bradycardia Left anterior fascicular block Abnormal ECG No previous ECGs available Confirmed by MD BELTRE JORGE ([id number]) on 10/03/2018 11:32:14 AM Performing Organization Address City/State/Zipcode Phone Number [place] CTA carotid (10/02/2018 1:43 PM CDT) Specimen Narrative Performed At FINAL REPORT [facility] CT, CTANGIOBRAIN, CT, CAROTID, ANGIO BRAIN CT [...] MD Report Verified Date/Time:10/02/2018 14:34:45 Reading Location: [facility] Radiology Reading Room Procedure Note Interface, External [...] Report Verified Date/Time: 10/02/2018 14:34:45 Reading Location: [facility] Radiology Reading Room Performing Organization Address City/State/Zipcode Phone Number [facility] CTA brain (10/02/2018 1:43 PM CDT) Specimen Narrative Performed At FINAL REPORT [facility] CT, CTANGIOBRAIN, CT, CAROTID, ANGIO BRAIN CT [...] MD Report Verified Date/Time:10/02/2018 14:34:45 Reading Location: [facility] Radiology Reading Room Procedure Note Interface, External [...] Report Verified Date/Time: 10/02/2018 14:34:45 Reading Location: [facility] Radiology Reading Room Performing Organization Address City/State/Zipcode Phone Number GE RIS after 11/24/2017 Insurance Payer Benefit Plan / Group Subscriber ID Type Phone Address MEDICARE MEDICARE A B xxxxxxxxxxx Medicare (Home) [address] [place] [address] Advance Directives For more information, please contact:[address] [phone] Code Status Date Activated Date Inactivated Comments [...]
[2018-11-25 11:05] LABS: Basophils % 0.7 % (0-1.3); Eosinophils % 2.5 % (0-4.4); Hematocrit 39.2 % (36.0-45.0); Lymphocytes % 24.6 % (15.3-44.8); MPV 8.9 fL (7.6-11.3); Monocytes % 9.6 % (3.3-12.3); RBC Red Blood Cell Count 4.34 M/uL (3.86-4.86)
--- NOTE | 2018-11-25 11:11 | RAD REPORT ---
EXAM DESCRIPTION: Darlin Single View11/25/2018 11:04 am CLINICAL HISTORY: Code stroke/dizziness COMPARISON: September 2018 FINDINGS: The lungs appear clear of acute infiltrate. The heart is mildly enlarged IMPRESSION: No acute abnormalities displayed
[2018-11-25 11:16] LABS: Protime INR 0.93
--- NOTE | 2018-11-25 11:16 | RAD REPORT ---
EXAM DESCRIPTION: CT - Ct Stroke Brain Wo Cont - 11/25/2018 11:06 am CLINICAL HISTORY: Slurred speech COMPARISON: September 2018 TECHNIQUE: Computed axial tomography of the head was obtained. All CT scans are performed using dose optimization technique as appropriate and may include automated exposure control or mA/KV adjustment according to patient size. FINDINGS: An intracranial bleed is not seen . The ventricles are normal in caliber. No extra-axial fluid collection is noted. Small low-density right cerebellum compatible with subacute infarct. Small old lacunar infarct left t halamus. 1 centimeter low-density left abel is more prominent and distinct from the prior exam likely subacute infarct. Fluid within the sinuses/ mastoids is not seen. IMPRESSION: Subacute infarcts described above Vivien Gregorio of the emergency room was notified at 10:53 a.m. November 25, 2018
[2018-11-25 11:18] LABS: BUN Blood Urea Nitrogen 14 mg/dL (7-18); Bicarbonate 30 mmol/L (21-32); Glucose Level 105 mg/dL (74-106); Potassium 4.1 mmol/L (3.5-5.1); Sodium Level 140 mmol/L (136-145); Troponin (Emerg Dept Use Only) < 0.02 ng/mL (0.0-0.045)
[2018-11-25] MEDS ORDERED: NA CHLORIDE 0.9% 500 ML ONE (11:23)
[2018-11-25] MEDS ORDERED: ASPIRIN 81 MG CHEWABLE TABLET ONE (11:23)
--- NOTE | 2018-11-25 12:32 | RAD REPORT ---
EXAM DESCRIPTION: Tere Angio11/25/2018 11:51 am CLINICAL HISTORY: Slurred speech COMPARISON: September 2018 TECHNIQUE: 50 cc Isovue 370 was administered intravenously. 3D MIP reconstruction performed All CT scans are performed using dose optimization technique as appropriate and may include automated exposure control or mA/KV adjustment according to patient size. FINDINGS: Portions of the left vertebral artery are occluded. The distal left vertebral artery is patent. The right vertebral artery appears unremarkable. Plaque within the proximal left internal carotid artery resulting in an approximately 45% stenosis Tortuous brachiocephalic artery Ujir-kn-yzetoygd calcified plaque within the left carotid bulb does not result in a significant stenosis. 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 Mild 0-49% stenosis Moderate 50-69% stenosis Severe 70-99% stenosis
--- NOTE | 2018-11-25 12:32 | RAD REPORT ---
EXAM DESCRIPTION: CTHead angio11/25/2018 11:51 am CLINICAL HISTORY: Slurred speech COMPARISON: September 2018 TECHNIQUE: CT angiogram of the head was obtained. 3D MIPS reconstruction performed. All CT scans are performed using dose optimization technique as appropriate and may include automated exposure control or mA/KV adjustment according to patient size. FINDINGS: The basilar, internal carotid, anterior cerebral, middle cerebral and posterior cerebral a rteries are normal caliber. An aneurysm is not seen. origin left posterior cerebral artery A significant stenosis is not noted. IMPRESSION: No significant abnormality displayed
[2018-11-25 13:28] LABS: Urine Blood NEGATIVE (NEG); Urine Glucose NEGATIVE (NEG); Urine Protein NEGATIVE (NEG)
[2018-11-25 13:41] LABS: Urine Bacteria 20-50 /HPF (<20); Urine Culture Reflex Order REFLEXED; Urine RBC <5 /HPF (NONE SEEN)
--- NOTE | 2018-11-25 14:25 | ER ---
Nurse's Notes [facility] Name: Lina Murillo Age: 83 yrs Sex: Female : 1935 Arrival Date: 11/25/2018 Time: 10:51 Bed 6 Private MD: Diagnosis: Dizziness and giddiness;Dizziness attributed to subacute strokes Presentation: 11/25 10:40 Presenting complaint: EMS states: called out for dizziness, right facial numbness sv started about 20 mins [employer] EMS. Symptoms resolved and pt was going to sign a refusal but then pt had a blank stare, slurred speech, and left facial numbness. EMS brought pt to ER, SBP 200s HR-60-70s, SR, BS-118. Transition of care: patient was not received from another setting of care. An acute neurological deficit is present. The charge nurse has been notified. The patients blood glucose was checked prior to arriving to the hospital and was found to be hyperglycemic. The patient has been moved to a treatment room. Onset of symptoms was November 25, 2018 at 10:20. Risk Assessment: Do you want to hurt yourself or someone else? Patient reports no desire to harm self or others. Initial Sepsis Screen: Does the patient meet any 2 criteria? No. Patient's initial sepsis screen is negative. Does the patient have a suspected source of infection? No. Patient's initial sepsis screen is negative. Care prior to arrival: Glucose check: 118. 10:40 Method Of Arrival: EMS: [facility] sv 10:40 Acuity: ESTEFANY 2 sv Triage Assessment: 10:40 The onset of the patients symptoms was November 25, 2018 at 10:20. sv Stroke Activation: Symptom onset < 3 hours Physician: Stroke Attending; Name: ; Notified At: ; Arrived At: Physician: Chief Stroke Resident; Name: ; Notified At: ; Arrived At: Physician: Stroke Resident; Name: ; Notified At: ; Arrived At: Physician: ED Attending; Name: Dr Bose; Notified At: 10:40; Arrived At: 10:47 Physician: ED Resident; Name: ; Notified At: ; Arrived At: Historical: - Allergies: 11:04 No Known Allergies; sv - PMHx: 11:04 Anemia; Hyperlipidemia; Hypertension; CVA; TPA given 09/29/18; left neck clot-unoperable; sv - PSHx: 11:04 None; sv - Immunization history:: Adult Immunizations up to date. - Family history:: not pertinent. - Social history:: Smoking status: Patient/guardian denies using tobacco. - Ebola Screening: : No symptoms or risks identified at this time. - Hospitalizations: : No recent hospitalization is reported. Screenin:59 Abuse screen: Denies threats or abuse. Nutritional screening: No deficits noted. tr5 Tuberculosis screening: No symptoms or risk factors identified. Fall Risk No fall in past 12 months (0 pts). No secondary diagnosis (0 pts). IV access (20 points). Ambulatory Aid- None/Bed Rest/Nurse Assist (0 pts). Gait- Normal/Bed Rest/Wheelchair (0 pts) Mental Status- Oriented to own ability (0 pts). Total Myers Fall Scale indicates No Risk (0-24 pts). 11:15 Patient has been NPO before screening. The patient is alert, able to follow commands. tr5 The patient does not exhibit slurred or garbled speech The patient is not exhibiting difficulty speaking. The patient does not exhibit difficulty understanding words. The patient is able to swallow own secretions with no drooling or need for suction. Patient tolerated one teaspoon of water. No drooling, immediate coughing, gurgling, or clearing of the throat was noted. The patient tolerated 90mL of water. No drooling, immediate coughing, gurgling, or clearing of the throat was noted. The patient passed the bedside swallow screening. Oral medications may be given as ordered. Contact Physician for further diet orders. Provider notified of bedside swallow screening results: Navjot Bose MD. Assessment: 10:52 VAN Scoring: Arm Drift: Patients demonstrates NO arm weakness. Patient is VAN Negative. sv Visual Disturbance: No visual disturbance noted. Aphasia: No aphasia noted. Neglect: No neglect noted. T-PA (Activase) Screening: Contraindications: Other: TPA received on 09/29/18. General: Appears in no apparent distress. comfortable, well developed, Behavior is calm, cooperative, appropriate for age. Pain: Denies pain. Neuro: Level of Consciousness is awake, alert, obeys commands, Oriented to person, place, time, situation, [employer] Cutter are equal bilaterally Moves all extremities. Full function Speech is normal, Facial symmetry appears normal, Pupils are PERRLA, Reports tingling on the left forehead and eye. Cardiovascular: Patient's skin is warm and dry. Respiratory: Airway is patent Respiratory effort is even, unlabored, Respiratory pattern is regular, symmetrical. Derm: Skin is pink, warm \T\ dry. Musculoskeletal: Range of motion: intact in all extremities. 11:15 Patient has been NPO before screening. The patient is alert, and able to follow tr5 commands. The patient does not exhibit slurred or garbled speech. The patient is not exhibiting difficulty speaking. The patient does not exhibit difficulty understanding words. The patient is able to swallow own secretions with no drooling or need for suction. Patient tolerated one teaspoon of water. No drooling, immediate coughing, gurgling, or clearing of the throat was noted. The patient tolerated 90mL of water. No drooling, immediate coughing, gurgling, or clearing of the throat was noted. The patient passed the bedside swallow screening. Oral medications may be given as ordered. Contact Physician for further diet orders. Provider notified of bedside swallow screening results: Navjot Bose MD. 13:20 Reassessment: Patient appears in no apparent distress at this time. No changes from previously documented assessment. Patient and/or family updated on plan of care and expected duration. Pain level reassessed. Patient is alert, oriented x 3, equal unlabored respirations, skin warm/dry/pink. Family at the bedside. Vital Signs: 10:52 BP 175 / 83; Pulse 68; Resp 17; Temp 97.3; Pulse Ox 100% on R/A; Pain 0/10; sv 11:22 BP 158 / 73; Pulse 59; Resp 16; Pulse Ox 100% on R/A; tr5 11:30 Weight 56.7 kg; Height 5 ft. 4 in. (162.56 cm); sv 13:22 BP 154 / 62; Pulse 58; Resp 18; Pulse Ox 98% ; sv 11:30 Body Mass Index 21.46 (56.70 kg, 162.56 cm) sv NIH Stroke Scale Scores: 10:52 NIHSS Score: 1 sv ED Course: 10:[address] via stretcher. tr5 10:47 Patient moved back from CT. tr5 10:51 Patient arrived in ED. ss 10:52 Inserted saline lock: 20 gauge in right antecubital area, using aseptic technique. sv 10:55 Deejay Richmond, PIEDAD is Primary Nurse. tr5 10:55 Navjot Bose MD is Attending Physician. rn 10:57 Patient moved to radiology via stretcher. tr5 10:58 X-ray(s) taken. sv 10:59 Triage completed. sv 10:59 Troponin (emerg Dept Use Only) Sent. sv 10:59 Basic Metabolic Panel Sent. sv 11:00 CBC with Diff Sent. sv 11:00 Patient has correct armband on for positive identification. Bed in low position. Call tr5 light in reach. Side rails up X 1. 11:01 EKG done, by ED staff, reviewed by Navjot Bose MD. sv 11:01 Arm band placed on. sv 11:04 Stroke CXR 1 View In Process Unspecified. EDMS 11:07 CT Stroke Brain w/o Contrast In Process Unspecified. EDMS 11:[address] Scan. sv 11:51 CT Head Angio In Process Unspecified. EDMS 11:51 CT Neck Angio In Process Unspecified. EDMS 13:23 Awaiting disposition, Awaiting re-evaluation by ER provider. sv 13:25 Urine Dipstick--Ancillary (enter results) Sent. sv 13:48 Urine Culture Sent. sv 14:24 Jarrod Vasques MD is Referral Physician. rn 14:32 No provider procedures requiring assistance completed. IV discontinued, intact, ss bleeding controlled, No redness/swelling at site. Pressure dressing applied. Administered Medications: 11:19 Drug: NS 0.9% 500 ml Route: IV; Rate: bolus; Site: right antecubital; tr5 11:19 Drug: Aspirin Chewable Tablet 324 mg Route: PO; tr5 Point of Care Testing: Blood Glucose: 10:52 Blood Glucose: 120 mg/dL; sv Ranges: Output: 13:20 Urine: 300ml (Voided); Total: 300ml. sv Outcome: 14:25 Discharge ordered by . rn 14:32 Discharged to home via wheelchair, with family. ss 14:32 Condition: good 14:32 Discharge instructions given to patient, family, Instructed on discharge instructions, follow up and referral plans. Demonstrated understanding of instructions, follow-up care. 14:33 Patient left the ED. ss NIH Stroke Scale - NIH Stroke Score Date: 11/25/2018 Time: 10:52 Total Score = 1 1a. Level of Consciousness (LOC) - 0(Alert) 1b. Level of Consciousness (LOC) (Year \T\ Age) - 0(Both) 1c. LOC Commands (Open \T\ Closes Eyes/V Belt Builder) - 0(Both) 2. Best Gaze (Lateral Gaze Paresis) - 0(Normal) 3. Visual Field Loss - 0(No visual loss) 4. Facial Palsy - 0(Normal) 5a. Left Arm: Motor (10-second hold) - 0(No drift) 5b. Right Arm: Motor (10-second hold) - 0(No drift) 6a. Left Leg: Motor (5-second hold - always test supine) - 0(No drift) 6b. Right Leg: Motor (5-second hold - always test supine) - 0(No drift) 7. Limb Ataxia (finger/nose \T\ heel/morales - test with eyes open) - 0(Absent) 8. Sensory Loss (pinprick arms/legs/face) - 1(Mild to moderate loss) 9. Best Language: Aphasia (description/naming/reading) - 0(No aphasia) 10. Dysarthria (speech clarity - read or repeat words) - 0(Normal) 11. Extinction and Inattention (visual/tactile/auditory/spatial/personal) - 0(No abnormality) Initials: sv Signatures: Dispatcher [employer] Fang Bejarano RN RN Navjot Vigil MD MD rn Smirch, Shelby, RN RN ss Rodriguez, Tommie, RN RN tr5 Corrections: (The following items were deleted from the chart) 10:57 10:45 BP 175 / 83; Pulse 68bpm; Resp 17bpm; Pulse Ox 100% RA; tr5 tr5 11:01 11:00 X-ray(s) taken. sv sv 11:05 10:55 Inserted saline lock: 20 gauge in right antecubital area, using aseptic sv technique. tr5 11:15 10:52 BP 175 / 83; Pulse 68bpm; Resp 17bpm; Pulse Ox 100% RA; tr5 sv
--- NOTE | 2018-11-25 14:26 | EDPHYS ---
Physician Documentation [facility] Name: Lina Murillo Age: 83 yrs Sex: Female : 1935 Arrival Date: 11/25/2018 Time: 10:51 Bed 6 Private MD: ED Physician Navjot Bose HPI: 11/25 10:59 This 83 yrs old Female presents to ER via Unassigned with complaints of S/S rn of Possible Stroke. 10:59 The patient's problem is reported as dizziness, paresthesias. Onset: The rn symptoms/episode began/occurred at 09:40. Duration: This was a single incident. Context: symptoms became apparent at 09:40. occurred while the patient was at rest. The symptoms are alleviated by nothing. The symptoms are aggravated by nothing. Severity of symptoms: At their worst the symptoms were moderate in the emergency department the symptoms have improved. The patient has experienced similar episodes in the past. The patient has been recently seen by a physician:. Reports at rest, sitting, got dizzy, and felt right lower facial numbness. That resolved after about 20 min. Was going to refuse EMS transport but then began to experience left facial numbness and didn't feel right so agreed to come. No fall or head injury. NO chest pain/sob/abd pain/vomiting/diarrhea. Had stroke with TPA on October 02, with known bilateral cerebellar infarcts and chronic occlusion of vertebral artery. I saw her a few weeks ago for similar presentation, consulted with neuro at [facility] who confirmed all of the findings on MRI. Dizziness and w/u at that point not attributed to anything new, so sent home. Has been ok since then. . Historical: - Allergies: 11:04 No Known Allergies; sv - PMHx: 11:04 Anemia; Hyperlipidemia; Hypertension; CVA; TPA given 09/29/18; left neck clot-unoperable; sv - PSHx: 11:04 None; sv - Immunization history:: Adult Immunizations up to date. - Family history:: not pertinent. - Social history:: Smoking status: Patient/guardian denies using tobacco. - Ebola Screening: : No symptoms or risks identified at this time. - Hospitalizations: : No recent hospitalization is reported. ROS: 10:59 Constitutional: Negative for fever, chills, and weight loss, Eyes: Negative for injury, rn pain, redness, and discharge, Neck: Negative for injury, pain, and swelling, Cardiovascular: Negative for chest pain, palpitations, and edema, Respiratory: Negative for shortness of breath, cough, wheezing, and pleuritic chest pain, Abdomen/GI: Negative for abdominal pain, nausea, vomiting, diarrhea, and constipation, Back: Negative for injury and pain, : Negative for injury, bleeding, discharge, and swelling, MS/Extremity: Negative for injury and deformity, Skin: Negative for injury, rash, and discoloration, Neuro: Negative for headache, weakness, and seizure. Exam: 10:59 Radiologist reports: NO acute findings. rn 10:59 Constitutional: This is a well developed, well nourished patient who is awake, alert, and in no acute distress. Head/Face: Normocephalic, atraumatic. Eyes: Pupils equal round and reactive to light, extra-ocular motions intact. Lids and lashes normal. Conjunctiva and sclera are non-icteric and not injected. Cornea within normal limits. Periorbital areas with no swelling, redness, or edema. ENT: MMM Neck: Trachea midline, no thyromegaly or masses palpated, and no cervical lymphadenopathy. Supple, full range of motion without nuchal rigidity, or vertebral point tenderness. No Meningismus. Cardiovascular: Regular rate and rhythm. No pulse deficits. Respiratory: Lungs have equal breath sounds bilaterally, clear to auscultation. No increased work of breathing, no retractions or nasal flaring. Abdomen/GI: soft, non-tender Skin: Warm, dry with normal turgor. Normal color with no rashes, no lesions, and no evidence of cellulitis. MS/ Extremity: Pulses equal, no cyanosis. Neurovascular intact. Full, normal range of motion. Equal circumference. Neuro: Awake and alert, GCS 15, oriented to person, place, time, and situation. Cranial nerves II-XII grossly intact. Motor strength 5/5 in all extremities. Sensory grossly intact. Cerebellar exam normal. Vital Signs: 10:52 BP 175 / 83; Pulse 68; Resp 17; Temp 97.3; Pulse Ox 100% on R/A; Pain 0/10; sv 11:22 BP 158 / 73; Pulse 59; Resp 16; Pulse Ox 100% on R/A; tr5 11:30 Weight 56.7 kg; Height 5 ft. 4 in. (162.56 cm); sv 13:22 BP 154 / 62; Pulse 58; Resp 18; Pulse Ox 98% ; sv 11:30 Body Mass Index 21.46 (56.70 kg, 162.56 cm) sv NIH Stroke Scale Scores: 10:52 NIHSS Score: 1 sv MDM: 10:55 Patient medically screened. rn 14:22 Differential diagnosis: CVA, TIA. Data reviewed: vital signs, nurses notes, lab test rn result(s), EKG, radiologic studies, CT scan, and as a result, I will discharge patient. Counseling: I had a detailed discussion with the patient and/or guardian regarding: the historical points, exam findings, and any diagnostic results supporting the discharge/admit diagnosis, lab results, radiology results, the need for outpatient follow up, the need to transfer to another facility. Response to treatment: the patient's symptoms have mildly improved after treatment, and as a result, I will discharge patient. Special discussion: I discussed with the patient/guardian in detail that at this point there is no indication for admission to the hospital. It is understood, however, that if the symptoms persist or worsen the patient needs to return immediately for re-evaluation. Based on the history and exam findings, there is no indication for further emergent testing or inpatient evaluation. I discussed with the patient/guardian the need to see the neurologist for further evaluation of the symptoms. ED course: No acute changes in CT angio, slight worsening of known strokes, discussed with patient that already on blood thinners, no new strokes found, is already getting PT for dizziness and coordination issues from strokes, sees Dr. Vasques, and improved. Anticipate that this problem will plague her intermittently for rest of her life and she understands that always a chance of new stroke and need to come in for evaluation. Family in room and questions answered. . 14:27 ED course: Patient denies urinary symptoms and UA and micro appears contaminated.. rn 11/25 10:57 Order name: Troponin (emerg Dept Use Only); Complete Time: 11:57 rn 11/25 10:57 Order name: Basic Metabolic Panel; Complete Time: 11:57 rn 11/25 10:57 Order name: CBC with Diff; Complete Time: 11: rn 11/25 10:57 Order name: Urine Microscopic Only; Complete Time: 14:26 rn 11/25 11:02 Order name: PT-INR; Complete Time: 11:57 ss 11/25 11:02 Order name: Ptt, Activated; Complete Time: 11:57 ss 11/25 10:57 Order name: CT Stroke Brain w/o Contrast; Complete Time: 11:57 rn 11/25 10:57 Order name: Stroke CXR 1 View; Complete Time: 11:57 rn 11/25 10:59 Order name: CT Head Angio; Complete Time: 12:48 rn 11/25 10:59 Order name: CT Neck Angio; Complete Time: 12:48 rn 11/25 11:42 Order name: Glucose, Ancillary Testing; Complete Time: 11:57 EDIL 11/25 13:24 Order name: Urine Dipstick--Ancillary (enter results); Complete Time: 14:26 eb 11/25 13:43 Order name: Urine Culture EDIL 11/25 10:57 Order name: EKG; Complete Time: 10:59 rn 11/25 10:57 Order name: Accucheck; Complete Time: 11:00 rn 11/25 10:57 Order name: Cardiac monitoring; Complete Time: 11:00 rn 11/25 10:57 Order name: EKG - Nurse/Tech; Complete Time: 11:00 rn 11/25 10:57 Order name: IV Saline Lock; Complete Time: 11:00 rn 11/25 10:57 Order name: Labs collected and sent; Complete Time: 11:00 rn 11/25 10:57 Order name: NPO; Complete Time: 11:00 rn 11/25 10:57 Order name: O2 Per Protocol; Complete Time: 11:00 rn 11/25 10:57 Order name: O2 Sat Monitoring; Complete Time: 11:00 rn 11/25 10:57 Order name: Stroke Swallow Screen; Complete Time: 11:30 rn 11/25 10:57 Order name: Urine Dipstick-Ancillary (obtain specimen); Complete Time: 13:22 rn Administered Medications: 11:19 Drug: NS 0.9% 500 ml Route: IV; Rate: bolus; Site: right antecubital; tr5 11:19 Drug: Aspirin Chewable Tablet 324 mg Route: PO; tr5 Point of Care Testing: Blood Glucose: 10:52 Blood Glucose: 120 mg/dL; sv Ranges: Critical Glucose Levels:Adult <50 mg/dl or >400 mg/dl <40 mg/dl or >180 mg/dl Disposition: 11/25/18 14:25 Discharged to Home. Impression: Dizziness and giddiness, Dizziness attributed to subacute strokes. - Condition is Stable. - Discharge Instructions: Dizziness. - Medication Reconciliation Form, Thank You Letter, Antibiotic Education, Prescription Opioid Use form. - Follow up: Jarrod Vasques MD; When: As needed; Reason: Recheck today's complaints, Re-evaluation by your physician. - Problem is an ongoing problem. - Symptoms have improved. NIH Stroke Scale - NIH Stroke Score Date: 11/25/2018 Time: 10:52 Total Score = 1 1a. Level of Consciousness (LOC) - 0(Alert) 1b. Level of Consciousness (LOC) (Year \T\ Age) - 0(Both) 1c. LOC Commands (Open \T\ Closes Eyes/Private Secretary) - 0(Both) 2. Best Gaze (Lateral Gaze Paresis) - 0(Normal) 3. Visual Field Loss - 0(No visual loss) 4. Facial Palsy - 0(Normal) 5a. Left Arm: Motor (10-second hold) - 0(No drift) 5b. Right Arm: Motor (10-second hold) - 0(No drift) 6a. Left Leg: Motor (5-second hold - always test supine) - 0(No drift) 6b. Right Leg: Motor (5-second hold - always test supine) - 0(No drift) 7. Limb Ataxia (finger/nose \T\ heel/morales - test with eyes open) - 0(Absent) 8. Sensory Loss (pinprick arms/legs/face) - 1(Mild to moderate loss) 9. Best Language: Aphasia (description/naming/reading) - 0(No aphasia) 10. Dysarthria (speech clarity - read or repeat words) - 0(Normal) 11. Extinction and Inattention (visual/tactile/auditory/spatial/personal) - 0(No abnormality) Initials: sv Signatures: Dispatcher [employer] Fang Bejarano RN RN sv Nieto, Roman, MD MD rn Smirch, Shelby, RN RN ss Rodriguez, Tommie, RN RN tr5 Corrections: (The following items were deleted from the chart) 14:33 14:25 11/25/2018 14:25 Discharged to Home. Impression: Dizziness and giddiness; ss Dizziness attributed to subacute strokes. Condition is Stable. Forms are Medication Reconciliation Form, Thank You Letter, Antibiotic Education, Prescription Opioid Use. Follow up: Jarrod Vasques; When: As needed; Reason: Recheck today's complaints, Re-evaluation by your physician. Problem is an ongoing problem. Symptoms have improved. rn
--- NOTE | 2018-11-26 10:02 | EKG ---
Test Date: 2018-11-25 Test Time: 10:59:00 Returns Supervisor: MAMTA MEASUREMENT RESULTS: Intervals: Rate: 60 MA: 198 QRSD: 104 QT: 394 QTc: 394 [place]: P: 61 MA: 198 QRS: -39 T: 85 INTERPRETIVE STATEMENTS: Normal sinus rhythm Left axis deviation Incomplete right bundle branch block Possible Anteroseptal infarct, age undetermined Abnormal ECG Compared to ECG 10/26/2018 04:16:08 Incomplete right bundle-branch block now present Sinus bradycardia no longer present Left ventricular hypertrophy no longer present Myocardial infarct finding still present Electronically Signed On 11-26-18 10:01:04 CDT by Taran Foss
== END 2018-11-25 14:33 | disposition home or self-care (01) ==
LOC: ER 10:41
DX: I63.9 Cerebral infarction, unspecified (principal); D64.9 Anemia, unspecified; E78.5 Hyperlipidemia, unspecified; I10 Essential (primary) hypertension; Z86.73 Personal history of transient ischemic attack (TIA), and cerebral infarction without residual deficits
CPT/HCPCS: 93005; 87088; 85025; 87086; 80048; 36415; 85610; 82962; 85730; 84484; 70496; 70498; 70450; 71045; Q9967; 81003; 81015; 99284

== ENCOUNTER 2021-09-12 12:41 | Observation (INO) | payer OTHER ==
--- OUTSIDE RECORDS SUMMARY | 2021-09-12 12:44 | XMS REPORT | Continuity of Care Document ---
:1935 Author Organization [facility] t Address [address] [place] [address] Care Team Providers Name Role Phone Yuliana BLACK Primary Care Physician Doctor Unassigned, Name Attending Clinician Unavailable Yuliana BLACK Attending Clinician Lab, - Db Attending Clinician Unavailable YULIANA Attending Clinician Unavailable JOSEPH MEDELLIN Attending Clinician Unavailable JOSEPH MEDELLIN Admitting Clinician Unavailable Payers Payer Name Policy Type Policy Number Effective Date Expiration Date S ource Problems Condition Condition Condition Status Onset Resolution Last Treating Co mments Source Name Details Category Date Date Treatment Clinician Date Essential Essential Disease Active Uni vers hypertensi hypertensi 08-28 it y of on on 00:00: [address] Hyperlipid Hyperlipid Disease Active U nivers emia with emia with 08-28 [place] 00 Medical lipoprotei lipoprotei Br anch n (LDL) n (LDL) cholestero cholestero l less l less than 100 than 100 mg/dL mg/dL Allergies, Adverse Reactions, Alerts Allergy Allergy Status Severity Reaction(s) Onset Inactive Treating Comm ents Source Name Type Date Date Clinician NO KNOWN Allergy Active [facility] NO KNOWN Drug Active Univers ALLERGIE Class ity of S [facility] Social History Social Habit Start Date Stop Date Quantity Comments Source Exposure to Not sure University SARS-CoV-2 [facility] (event) Branch Alcohol intake 2015-08-29 2015-08-29 Current drinker Unive rsity of 00:00:00 00:00:00 of alcohol [facility] (finding) Branch Sex Ass[birth year] At [birth year] Universit y of 00:00:00 00:00:00 [place] [facility] Smoking Status Start Date Stop Date Source Never smoker [facility] Branch Medications Ordered Filled Start Stop Current Ordering Indication Dosage Frequency Signature Comments Components Source Medication Medication Date Date Medication? Clinician (SIG) Name Name lovastatin 2020-05 Yes [id number] 40mg Take 1 U nivers 40 mg 0-26 tablet by ity of tablet 00:00: mouth at [place] bedtime. Medical Branch losartan 50 2020-05 Yes [id number] 50mg Take 1 Univers mg tablet 0-26 tablet by ity o f 00:00: mouth 2 (two) Medical times Branch daily. carvediloL 2020-05 Yes [id number] 12.5mg Take 1 Univers 12.5 mg 0-26 tablet by ity of tablet 00:00: mouth 2 (two) Medical times Branch daily with meals. lovastatin 2020-05 Yes [id number] 40mg Take 1 U nivers 40 mg 0-26 tablet by ity of tablet 00:00: mouth at [place] bedtime. Medical Branch losartan 50 2020-05 Yes [id number] 50mg Take 1 Univers mg tablet 0-26 tablet by ity o f 00:00: mouth 2 (two) Medical times Branch daily. carvediloL 2020-05 Yes [id number] 12.5mg Take 1 Univers 12.5 mg 0-26 tablet by ity of tablet 00:00: mouth 2 (two) Medical times Branch daily with meals. lovastatin 2020-05 Yes [id number] 40mg Take 1 U nivers 40 mg 0-26 tablet by ity of tablet 00:00: mouth at [place] bedtime. Medical Branch losartan 50 2020-05 Yes [id number] 50mg Take 1 Univers mg tablet 0-26 tablet by ity o f 00:00: mouth 2 (two) Medical times Branch daily. carvediloL 2020-05 Yes [id number] 12.5mg Take 1 Univers 12.5 mg 0-26 tablet by ity of tablet 00:00: mouth 2 (two) Medical times Branch daily with meals. lovastatin 2020-05 Yes [id number] 40mg Take 1 U nivers 40 mg 0-26 tablet by ity of tablet 00:00: mouth at [place] 00 bedtime. Medical Branch losartan 50 2020-05 Yes [id number] 50mg Take 1 Univers mg tablet 0-26 tablet by ity o f 00:00: mouth 2 [place] 00 (two) Medical times Branch daily. carvediloL 2020-05 Yes [id number] 12.5mg Take 1 Univers 12.5 mg 0-26 tablet by ity of tablet 00:00: mouth 2 [place] 00 (two) Medical times Branch daily with meals. lovastatin 2020- No [id number] 40mg Take 1 Univers 40 mg 4-26 10-26 tablet by ity of tablet 00:00: 00:00 mouth at [place] 00 :00 bedtime. Medical Branch losartan 50 2020- No [id number] 50mg Take 1 Univers mg tablet 4-26 10-26 tablet by ity of 00:00: 00:00 mouth 2 [place] 00 :00 (two) Medical times Branch daily. carvediloL 2020- No [id number] 12.5mg Take 1 Univers 12.5 mg 4-26 10-26 tablet by ity of tablet 00:00: 00:00 mouth 2 [place] 00 :00 (two) Medical times Branch daily with meals. aspirin 2019- Yes 81mg Take 81 mg [facility] (ADULT LOW 0-26 by mouth ity o f DOSE 09:12: daily. [place] ASPIRIN) 81 51 Medical mg EC Branch tablet CYANOCOBALA 2019- Yes 1{tbl} Take 1 Un dona MIN, 0-26 tablet by ity of VITAMIN 09:12: mouth [place] B-12, ORAL 51 daily. Medical Branch folic acid 2019- Yes 400ug Take 400 Un don[place] 800 mcg 0-26 mcg by ity of tablet 09:12: mouth [place] 51 daily. Medical Branch [place]-3-DHA 2019- Yes Take by Un dona -EPA-Fish 0-26 mouth. ity of Oil (FISH 09:12: [place] OIL) 1,000 51 Medical mg (120 Branch mg-180 mg) Cap cranberry 2020- Yes Take by [facility] ers fruit 0-26 mouth. ity of extract 09:12: [place] (CRANBERRY 51 Medical ORAL) Branch vit A/C/E 2020- Yes Take by [facility] ers ac/ZnOx/cup 0-26 mouth. ity of alex oxide 09:12: [place] (EYE 51 Medical VITAMIN AND Branch MINERALS ORAL) aspirin 2020- Yes 81mg Take 81 mg Univ ers (ADULT LOW 0-26 by mouth ity o f DOSE 09:12: daily. [place] ASPIRIN) 81 51 Medical mg EC Branch tablet CYANOCOBALA 2020- Yes 1{tbl} Take 1 Un [place] MIN, 0-26 tablet by ity of VITAMIN 09:12: mouth [place] B-12, ORAL 51 daily. Medical Branch folic acid 2020- Yes 400ug Take 400 Un [place] 800 mcg 0-26 mcg by ity of tablet 09:12: mouth [place] 51 daily. Medical Branch [place]-3-DHA 2020- Yes Take by Un dona -EPA-Fish 0-26 mouth. ity of Oil (FISH 09:12: [place] OIL) 1,000 51 Medical mg (120 Branch mg-180 mg) Cap cranberry 2019- Yes Take by [facility] ers fruit 0-26 mouth. ity of extract 09:12: [place] (CRANBERRY 51 Medical ORAL) Branch vit A/C/E 2019- Yes Take by [facility] ers ac/ZnOx/cup 0-26 mouth. ity of alex oxide 09:12: [place] (EYE 51 Medical VITAMIN AND Branch MINERALS ORAL) aspirin 2019- Yes 81mg Take 81 mg Univ ers (ADULT LOW 0-26 by mouth ity o f DOSE 09:12: daily. [place] ASPIRIN) 81 51 Medical mg EC Branch tablet CYANOCOBALA 2020- Yes 1{tbl} Take 1 Un don[place] MIN, 0-26 tablet by ity of VITAMIN 09:12: mouth [place] B-12, ORAL 51 daily. Medical Branch folic acid 2020- Yes 400ug Take 400 Un [place] 800 mcg 0-26 mcg by ity of tablet 09:12: mouth [place] 51 daily. Medical Branch [place]-3-DHA 2020- Yes Take by Un don[place] -EPA-Fish 0-26 mouth. ity of Oil (FISH 09:12: [place] OIL) 1,000 51 Medical mg (120 Branch mg-180 mg) Cap cranberry 2020- Yes Take by [facility] ers fruit 0-26 mouth. ity of extract 09:12: [place] (CRANBERRY 51 Medical ORAL) Branch vit A/C/E 2020- Yes Take by [facility] ers ac/ZnOx/cup 0-26 mouth. ity of alex oxide 09:12: [place] (EYE 51 Medical VITAMIN AND Branch MINERALS ORAL) aspirin 2019- Yes 81mg Take 81 mg [facility] (ADULT LOW 0-26 by mouth ity o f DOSE 09:12: daily. [place] ASPIRIN) 81 51 Medical mg EC Branch tablet CYANOCOBALA 2019-05 Yes 1{tbl} Take 1 Un dona MIN, 0-26 tablet by ity of VITAMIN 09:12: mouth [place] B-12, ORAL 51 daily. Medical Branch folic acid 2019-05 Yes 400ug Take 400 Un [place] 800 mcg 0-26 mcg by ity of tablet 09:12: mouth [place] 51 daily. Medical Branch [place]-3-DHA 2019-05 Yes Take by Un don[place] -EPA-Fish 0-26 mouth. ity of Oil (FISH 09:12: [place] OIL) 1,000 51 Medical mg (120 Branch mg-180 mg) Cap cranberry 2019-05 Yes Take by [facility] fruit 0-26 mouth. ity of extract 09:12: [place] (CRANBERRY 51 Medical ORAL) Branch vit A/C/E 2019-05 Yes Take by [facility] ac/ZnOx/cup 0-26 mouth. ity of alex oxide 09:12: [place] (EYE 51 Medical VITAMIN AND Branch MINERALS ORAL) carBAMazepi 2015-0 Yes 200mg Take 200 U nivers ne 2-24 mg by ity of (TEGRETOL) 00:00: [place] 200 mg 00 (three) Medical tablet times Branch daily. carBAMazepi 2015- Yes 200mg Take 200 U nivers ne 2-24 mg by ity of (TEGRETOL) 00:00: [place] 200 mg 00 (three) Medical tablet times Branch daily. carBAMazepi 2015-0 Yes 200mg Take 200 U nivers ne 2-24 mg by ity of (TEGRETOL) 00:00: [place] 200 mg 00 (three) Medical tablet times Branch daily. carBAMazepi 2015-0 Yes 200mg Take 200 U nivers ne 2-24 mg by ity of (TEGRETOL) 00:00: [place] 200 mg 00 (three) Medical tablet times Branch daily. Immunizations Ordered Filled Immunization Date Status Comments [facility] Immunization Name Name Influenza High Dose 2020-02-28 Completed [facility] rsity of 00:00:00 [facility] Influenza High Dose 2020-02-28 Completed Unive rsity of 00:00:00 [facility] Influenza High Dose 2020-02-28 Completed Unive rsity of 00:00:00 [facility] Influenza High Dose 2020-02-28 Completed Unive rsity of 00:00:00 [facility] Vital Signs Vital Name Observation Time Observation Value Comments Source Diastolic blood 2021-03-24 13:05:00 91 mm[Hg] Unive rsity of [facility] Heart rate 2021-03-24 13:05:00 66 /min [facility] acute hospital Body weight 2021-03-24 13:05:00 66.679 kg [facility] acute hospital BMI 2021-03-24 13:05:00 26.04 kg/m2 [facility] acute hospital Systolic blood 2021-03-24 13:05:00 190 mm[Hg] Univer sity [facility] Procedures Procedure Date / Time Performing Clinician Source Performed AUTHORIZATION FOR 2021-08-04 06:01:00 Doctor Unassigned, No [facility] Encounters Start End Encounter Admission Attending Care Care Encounter Source Date/Time Date/Time Type Type Clinicians Facility Department ID 2021-08-04 2021-08-04 Orders Doctor HENOK [id number] Univers 00:00:00 00:00:00 Only Unassigned, DAREN [id number] ity of [place] [facility] [id number] Scout as [phone] [address] 2021-07-12 2021-07-12 Refill Yuliana [facility] [id number] Univers 00:00:00 00:00:00 [facility] [id number] it y of [place] [id number] Scout as JIMMY?BLEA [phone] [address] MEDICAL OFFICE BUILDING 2021-03-24 2021-03-24 Rem[facility]ter Lab, Ang - Db [facility] [id number] Univers 08:19:51 08:34:51 Visit Rick Bridges [facility] [id number] ity of [place] [id number] Scout as Jimmy?Blea [phone] [place] eugenio ramirez [address] Medical Office [facility] 2021-03-24 2021-03-24 [facility] [id number] Univers 08:05:00 08:20:00 Visit Rick [facility] [id number] it y of [place] [id number] Scout as Jimmy?Blea [phone] [address] Office [facility] 2021-03-24 2021-03-24 Outpatient Monica [facility] [id number] Univers 08:00:00 08:00:00 RICK [id number] [facility] 2021-03-24 2021-03-24 Outpatient Monica [facility] [id number] Univers 08:00:00 08:00:00 [facility] 2020-09-22 2020-09-22 Outpatient Monica [facility] [id number] Univers 09:00:00 09:00:00 RICK [id number] [facility] 2020-09-22 2020-09-22 Outpatient Monica [facility] [id number] Univers 09:00:00 09:00:00 RICK [facility] 2020-03-24 2020-03-24 Outpatient Monica [facility] [id number] Univers 09:15:00 09:15:00 RICK [id number] [facility] 2020-03-24 2020-03-24 [facility] [id number] Univers 09:15:00 09:15:00 [facility] Results Test Description Test Time Test Comments Results Result Comments Source RPR 2018-10-03 13:03:00 Test Item Value Reference Range Interpretation Comme nts R SCREEN (CAITY) (test code = 420) Nonreactive Nonreactive POCT-GLUCOSE [id number] 12:44:00 Test Item Value Reference Range Interpretation Comments POC-GLUCOSE METER 110 mg/dL 70-110 TESTED AT [place] [address] (CAITY) (test code = [place] 8658) [address] MR, BRAIN, WITHOUT [id number] 11:33:00FINAL REPORT MRI Brain without contrast Clinical History: Cerebral ischemia [place]: MRI of the brain utilizing axial T2, [...] MDReport Verified Date/Time: 10/03/2018 11:33:22 Reading Location: [address] Neuro Reading Room HEMOGLOBIN [id number] 10:49:00 Test Item Value Reference Range Interpretation Comments HEMOGLOBIN A1C (BEAKER) (test code = 5.4 % 4.3-6.1 368) [id number] 03:51:00 Test Item Value Reference Range Interpretation Comments PHOSPHORUS (BEAKER) (test code = 2.8 mg/dL 2.3-4.7 604) [id number] 03:51:00 Test Item Value Reference Range Interpretation Comments MAGNESIUM (BEAKER) (test code = 1.8 mg/dL 1.6-2.6 627) FastingBASIC METABOLIC [id number] 03:51:00 Test Item Value Reference Range Interpretation Comments SODIUM (BEAKER) 139 meq/L 136-145 (test code = 381) POTASSIUM (BEAKER) 4.1 meq/L 3.5-5.1 (test code = 379) CHLORIDE (BEAKER) 109 meq/L 98-107 H (test code = 382) CO2 (BEAKER) (test 26 meq/L 22-29 code = 355) BLOOD UREA NITROGEN 8 mg/dL 7-21 (BEAKER) (test code = 354) CREATININE (BEAKER) 0.62 mg/dL 0.57-1.25 (test code = 358) GLUCOSE RANDOM 85 mg/dL 70-105 (BEAKER) (test code = 652) CALCIUM (BEAKER) 8.9 mg/dL 8.4-10.2 (test code = 697) EGFR (BEAKER) (test 91 mL/min/1.73 ESTIMA ANISA GFR IS code = 1092) sq m NOT ACCURATE CREATININE CLEARANCE IN PREDICTING GLOMERULAR FILTRATION RATE . ESTIMATED GFR I S NOT APPLICABLE FOR DIALYSIS PATIEN TS. FastingLIPID [id number] 03:51:00 Test Item Value Reference Range Interpretation Comments TRIGLYCERIDES (BEAKER) (test code = 100 mg/dL 540) CHOLESTEROL (BEAKER) (test code = 253 mg/dL 631) HDL CHOLESTEROL (BEAKER) (test code 47 mg/dL = 976) LDL CHOLESTEROL CALCULATED (BEAKER) 186 mg/dL (test code = 633) Triglyceride Reference Range: Low Risk <150 Borderline 150-199 High Risk 200-499 Very High Risk >=500Cholesterol Reference Range: Low Risk <200 Borderline 200-239 High Risk >240HDL Cholesterol Reference Range: Low Risk >=60 High Risk <40LDL Cholesterol Reference Range: Optimal <100 Near Optimal 100-129 Borderline 130-159 High 160-189 Very High >=190 FastingCBC W/PLT COUNT & AUTO [id number] 03:35:00 Test Item Value Reference Range Interpretation Comments WHITE BLOOD CELL COUNT (BEAKER) 4.9 K/ L 3.5-10.5 (test code = 775) RED BLOOD CELL COUNT (BEAKER) 3.58 M/ L 3.93-5.22 L (test code = 761) HEMOGLOBIN (BEAKER) (test code = 10.6 GM/DL 11.2-15.7 L 410) HEMATOCRIT (BEAKER) (test code = 33.8 % 34.1-44.9 L 411) MEAN CORPUSCULAR VOLUME (BEAKER) 94.4 fL 79.4-94.8 (test code = 753) MEAN CORPUSCULAR HEMOGLOBIN 29.6 pg 25.6-32.2 (BEAKER) (test code = 751) MEAN CORPUSCULAR HEMOGLOBIN CONC 31.4 GM/DL 32.2-35.5 L (BEAKER) (test code = 752) RED CELL DISTRIBUTION WIDTH 12.4 % 11.7-14.4 (BEAKER) (test code = 412) PLATELET COUNT (BEAKER) (test 144 K/CU MM 150-450 L code = 756) MEAN PLATELET VOLUME (BEAKER) 10.2 fL 9.4-12.3 (test code = 754) NUCLEATED RED BLOOD CELLS 0 /100 WBC 0-0 (BEAKER) (test code = 413) NEUTROPHILS RELATIVE PERCENT 61 % (BEAKER) (test code = 429) LYMPHOCYTES RELATIVE PERCENT 24 % (BEAKER) (test code = 430) MONOCYTES RELATIVE PERCENT 12 % (BEAKER) (test code = 431) EOSINOPHILS RELATIVE PERCENT 2 % (BEAKER) (test code = 432) BASOPHILS RELATIVE PERCENT 1 % (BEAKER) (test code = 437) NEUTROPHILS ABSOLUTE COUNT 3.01 K/ L 1.56-6.13 (BEAKER) (test code = 670) LYMPHOCYTES ABSOLUTE COUNT 1.17 K/ L 1.18-3.74 L (BEAKER) (test code = 414) MONOCYTES ABSOLUTE COUNT (BEAKER) 0.60 K/ L 0.24-0.36 H (test code = 415) EOSINOPHILS ABSOLUTE COUNT 0.11 K/ L 0.04-0.36 (BEAKER) (test code = 416) BASOPHILS ABSOLUTE COUNT (BEAKER) 0.03 K/ L 0.01-0.08 (test code = 417) IMMATURE GRANULOCYTES-RELATIVE 0 % 0-1 PERCENT (BEAKER) (test code = 2801) TSH/FREE T4 IF [id number] 15:42:00 Test Item Value Reference Range Interpretation Comments THYROID STIMULATING HORMONE 0.84 uIU/mL 0.35-4.94 (BEAKER) (test code = 772) VITAMIN [id number] 15:42:00 Test Item Value Reference Range Interpretation Comments VITAMIN B12 (BEAKER) (test code = 290 pg/mL 213-816 774) FOLATE, [id number] 15:42:00 Test Item Value Reference Range Interpretation Comments FOLATE (BEAKER) (test code = 362) 13.6 ng/mL >=7.0 [id number] 15:08:00 Test Item Value Reference Range Interpretation Comments PHOSPHORUS (BEAKER) (test code = 3.0 mg/dL 2.3-4.7 604) [id number] 15:08:00 Test Item Value Reference Range Interpretation Comments MAGNESIUM (BEAKER) (test code = 1.6 mg/dL 1.6-2.6 627) CT, CTANGIO [id number] 14:34:00FINAL REPORT CT, CTANGIO BRAIN, CT, CAROTID, [...] Signed: JR Matute Robert MDReport Verified Date/Time: 10/02/2018 14:34:45 Reading Location: [facility] Radiology Reading Room CT, CAROTID, [id number] 14:34:00FINAL REPORT CT, CTANGIO BRAIN, CT, CAROTID, ANGIOBRAIN CT WITHOUT CONTRAST I NDICATION: Stroke COMPARISON: None TECHNIQUE:Rapid acquisition spiral images [...] Signed: JR Matute Robert MDReport Verified Date/Time: 10/02/2018 14:34:45 Reading Location: [facility] Radiology Reading Room [facility] METABOLIC [id number] 13:19:00 Test Item Value Reference Range Interpretation Comments SODIUM (BEAKER) 136 meq/L 136-145 (test code = 381) POTASSIUM (BEAKER) 3.9 meq/L 3.5-5.1 Specimen slightly (test code = 379) hemolyzed CHLORIDE (BEAKER) 106 meq/L 98-107 (test code = 382) CO2 (BEAKER) (test 22 meq/L 22-29 code = 355) BLOOD UREA NITROGEN 13 mg/dL 7-21 (BEAKER) (test code = 354) CREATININE (BEAKER) 0.61 mg/dL 0.57-1.25 Specimen slightly (test code = 358) hemolyzed GLUCOSE RANDOM 111 mg/dL 70-105 H (BEAKER) (test code = 652) CALCIUM (BEAKER) 8.3 mg/dL 8.4-10.2 L (test code = 697) EGFR (BEAKER) (test 93 mL/min/1.73 ESTIMA ANISA GFR IS code = 1092) sq m NOT ACCURATE CREATININE CLEARANCE IN PREDICTING GLOMERULAR FILTRATION RATE . ESTIMATED GFR I S NOT APPLICABLE FOR DIALYSIS PATIEN TS. CBC W/PLT COUNT & AUTO [id number] 13:06:00 Test Item Value Reference Range Interpretation Comments WHITE BLOOD CELL COUNT (BEAKER) 4.7 K/ L 3.5-10.5 (test code = 775) RED BLOOD CELL COUNT (BEAKER) 3.62 M/ L 3.93-5.22 L (test code = 761) HEMOGLOBIN (BEAKER) (test code = 10.9 GM/DL 11.2-15.7 L 410) HEMATOCRIT (BEAKER) (test code = 34.0 % 34.1-44.9 L 411) MEAN CORPUSCULAR VOLUME (BEAKER) 93.9 fL 79.4-94.8 (test code = 753) MEAN CORPUSCULAR HEMOGLOBIN 30.1 pg 25.6-32.2 (BEAKER) (test code = 751) MEAN CORPUSCULAR HEMOGLOBIN CONC 32.1 GM/DL 32.2-35.5 L (BEAKER) (test code = 752) RED CELL DISTRIBUTION WIDTH 12.2 % 11.7-14.4 (BEAKER) (test code = 412) PLATELET COUNT (BEAKER) (test 163 K/CU MM 150-450 code = 756) MEAN PLATELET VOLUME (BEAKER) 10.6 fL 9.4-12.3 (test code = 754) NUCLEATED RED BLOOD CELLS 0 /100 WBC 0-0 (BEAKER) (test code = 413) NEUTROPHILS RELATIVE PERCENT 77 % (BEAKER) (test code = 429) LYMPHOCYTES RELATIVE PERCENT 15 % (BEAKER) (test code = 430) MONOCYTES RELATIVE PERCENT 7 % (BEAKER) (test code = 431) EOSINOPHILS RELATIVE PERCENT 1 % (BEAKER) (test code = 432) BASOPHILS RELATIVE PERCENT 1 % (BEAKER) (test code = 437) NEUTROPHILS ABSOLUTE COUNT 3.63 K/ L 1.56-6.13 (BEAKER) (test code = 670) LYMPHOCYTES ABSOLUTE COUNT 0.69 K/ L 1.18-3.74 L (BEAKER) (test code = 414) MONOCYTES ABSOLUTE COUNT (BEAKER) 0.34 K/ L 0.24-0.36 (test code = 415) EOSINOPHILS ABSOLUTE COUNT 0.04 K/ L 0.04-0.36 (BEAKER) (test code = 416) BASOPHILS ABSOLUTE COUNT (BEAKER) 0.03 K/ L 0.01-0.08 (test code = 417) IMMATURE GRANULOCYTES-RELATIVE 0 % 0-1 PERCENT (BEAKER) (test code = 1598)
[2021-09-12] MEDS ORDERED: NA CHLORIDE 0.9% 500 ML ONE ×2 (13:31→14:27)
[2021-09-12 13:52] LABS: Urine Blood Trace-intact (Negative); Urine Glucose Negative (Negative); Urine Protein Negative (Negative); Urine Specific Gravity 1.015 (1.005-1.030)
[2021-09-12 14:05] LABS: Absolute Lymphocytes (CBC) 1.4 K/uL (0.7-4.9); Hematocrit 40.3 % (36.0-45.0); Lymphocytes % 14.5 % (15.3-44.8); MPV 8.5 fL (7.6-11.3); RBC Red Blood Cell Count 4.52 M/uL (3.86-4.86)
[2021-09-12] MEDS ORDERED: Levofloxacin 750mg IV 750 MG/150 ML BAG IV ONE (14:08)
--- NOTE | 2021-09-12 14:09 | RAD REPORT ---
EXAM DESCRIPTION: CTAbdomen Pelvis W Contrast - 09/12/2021 1:52 pm CLINICAL HISTORY: RLQ abdominal pain [facility] comparisons TECHNIQUE: CT of the abdomen and pelvis was performed. All CT scans are performed using dose optimization technique as appropriate and may include automated exposure control or mA/KV adjustment according to patient size. FINDINGS: Lower chest: No acute abnormality. Liver: No acute abnormality or suspicious lesions. Biliary: Cholelithiasis. Mild diffuse gallbladder wall thickening but no pericholecystic inflammatory changes. Extrahepatic biliary ductal dilatation. The extrahepatic common bile duct measures 12 cecil meters . Stomach: No significant focal abnormality. Duodenum: No significant focal abnormality. Pancreas: No significant abnormality. Spleen: No significant abnormality. Adrenal: No suspicious lesions. Kidney/ureter: No hydronephrosis. No renal calculi. Retroperitoneum: No retroperitoneal adenopathy. Vascular: No aneurysm. Atherosclerosis. Bowel: Acute non perforated appendicitis. The appendix is retrocecal.. Peritoneum: Small volume of free fluid in the pelvis . Bladder: Grossly unremarkable. Reproductive: No adnexal masses. Bones: No acute fracture. Multilevel degenerative changes are present in the spine. Other: n/a IMPRESSION: 1. Acute non perforated appendicitis. 2. Cholelithiasis. Extrahepatic biliary ductal dilatation is noted. MRCP could better evaluate for ch oledocholithiasis. Though the gallbladder wall is mildly thickened, no pericholecystic inflammatory c hanges are identified.
[2021-09-12 14:19] LABS: Albumin 3.7 g/dL (3.4-5.0); Bilirubin Total 0.7 mg/dL (0.2-1.0); Protein, Total 7.9 g/dL (6.4-8.2)
[2021-09-12] MEDS ORDERED: NA CHLORIDE 0.9% 100 ML IV ONE (14:27)
[2021-09-12] MEDS ORDERED: PIPERACIL/TAZO 3.375 GM VIAL IV ONE (14:28)
--- NOTE | 2021-09-12 15:00 | EDPHYS ---
Physician Documentation [facility] Name: Lina Murillo Age: 86 yrs Sex: Female : 1935 Arrival Date: 09/12/2021 Time: 12:45 Bed 14 Private MD: ED Physician Romie Cardozo HPI: 09/12 13:12 This 86 yrs old Female presents to ER via Ambulatory with complaints of Abdominal Pain. pm1 13:12 The patient presents with abdominal pain right lower quadrant. Onset: The pm1 symptoms/episode began/occurred last night. The symptoms do not radiate. Associated signs and symptoms: none. Pertinent negatives: nausea, vomiting, and diarrhea, chest pain, shortness of breath. The symptoms are described as sharp. Modifying factors: The symptoms are alleviated by nothing, the symptoms are aggravated by nothing. Severity of pain: in the emergency department the pain is unchanged. The patient has not experienced similar symptoms in the past. The patient has not recently seen a physician. 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 - Social history:: Smoking status: Patient denies any tobacco usage or history of. ROS: 13:12 Constitutional: Negative for fever, chills, and weight loss, Cardiovascular: Negative pm1 for chest pain, palpitations, and edema, Respiratory: Negative for shortness of breath, cough, wheezing, and pleuritic chest pain. 13:12 Back: Negative for injury and pain, : Negative for injury, bleeding, discharge, and swelling, MS/Extremity: Negative for injury and deformity, Skin: Negative for injury, rash, and discoloration, Neuro: Negative for headache, weakness, numbness, tingling, and seizure. 13:12 Abdomen/GI: Positive for abdominal pain, of the right lower quadrant, Negative for nausea, vomiting, and diarrhea. 13:12 All other systems are negative. Exam: 13:12 Constitutional: This is a well developed, well nourished patient who is awake, alert, pm1 and in no acute distress. Head/Face: Normocephalic, atraumatic. 13:12 Back: No spinal tenderness. No costovertebral tenderness. Full range of motion. Skin: Warm, dry with normal turgor. Normal color with no rashes, no lesions, and no evidence of cellulitis. MS/ Extremity: Pulses equal, no cyanosis. Neurovascular intact. Full, normal range of motion. 13:12 Cardiovascular: Exam negative for acute changes, Rate: normal, Rhythm: regular, Pulses: no pulse deficits are appreciated. 13:12 Respiratory: Exam negative for acute changes, respiratory distress, shortness of breath, Breath sounds: are clear throughout. 13:12 Abdomen/GI: Inspection: abdomen appears normal, Palpation: soft, in all quadrants, moderate abdominal tenderness, in the right lower quadrant, rebound tenderness, is not appreciated. 13:12 Neuro: Exam negative for acute changes, Orientation: is normal, Mentation: is normal, Motor: is normal, moves all fours, Gait: is steady, at a normal pace, without difficulty. Vital Signs: 13:07 BP 174 / 92; Pulse 82; Resp 15; Temp 98.6; Pulse Ox 97% ; Weight 63.5 kg; Height 5 ft. jl7 4 in. (162.56 cm); Pain 0/10; 15:00 BP 128 / 83; Pulse 74; Resp 16; Pulse Ox 95% ; bp 17:00 BP 185 / 77; Pulse 74; Resp 16; Pulse Ox 95% ; bp 13:07 Body Mass Index 24.03 (63.50 kg, 162.56 cm) jl7 MDM: 13:11 Patient medically screened. pm1 14:58 Data reviewed: vital signs. Data interpreted: Pulse oximetry: on room air is 97 %. pm1 Interpretation: normal. 14:58 Physician consultation: Kirt Wren MD was called at 14:53, regarding consult, pm1 patient's condition, and will see patient in ED, shortly, would like admission per Dr. Adi Martinez MD. 14:59 Counseling: I had a detailed discussion with the patient and/or guardian regarding: the pm1 historical points, exam findings, and any diagnostic results supporting the discharge/admit diagnosis, lab results, radiology results, the need for further work-up and treatment in the hospital. 15:30 Physician consultation: Adi Martinez MD in the emergency department to see patient at pm1 15:29. 16:21 Physician consultation: Kirt Wren MD in the emergency department to see patient at pm1 16:22, Wanted to know if patient is cleared to go to surgery. Called Juan BLACK, he cleared patient for surgery and I informed Dr Wren. 09/12 13:11 Order name: CBC with Diff; Complete Time: 14:11 pm09/12 13:11 Order name: CMP; Complete Time: 14:49 pm09/12 13:11 Order name: Lipase; Complete Time: 14:49 pm09/12 13:52 Order name: Urine Dipstick-Ancillary; Complete Time: 14:04 EDAZ 09/12 16:10 Order name: CBC with Automated Diff EDMS 09/12 16:10 Order name: CBC with Automated Diff EDMS 09/12 13:19 Order name: CT Abd/Pelvis - IV Contrast Only; Complete Time: 14:11 pm09/12 14:58 Order name: Chest Single View XRAY; Complete Time: 16:47 pm09/12 16:10 Order name: Comprehensive Metabolic Panel EDAZ 09/12 16:10 Order name: Comprehensive Metabolic Panel EDAZ 09/12 16:20 Order name: SARS-COV-2 RT PCR (Document "Date of Onset" if Symptomatic) [facility] 09/12 13:11 Order name: IV Saline Lock; Complete Time: 13:45 pm09/12 13:11 Order name: Labs collected and sent; Complete Time: 13:45 pm09/12 13:11 Order name: Urine Dipstick-Ancillary (obtain specimen); Complete Time: 13:52 pm09/12 14:11 Order name: NPO; Complete Time: 14:16 pm09/12 14:58 Order name: EKG; Complete Time: 14:58 pm09/12 14:58 Order name: EKG - Nurse/Tech; Complete Time: 15:33 pm09/12 16:10 Order name: NPO EDMS 09/12 16:12 Order name: CONS Physician Consult EDMS Administered Medications: 13:40 Drug: NS 0.9% 500 ml Route: IV; Rate: bolus; Site: right forearm; bp 15:10 Follow up: IV Status: Completed infusion; IV Intake: 500ml bp 14:37 Drug: NS 0.9% 1000 ml Route: IV; Rate: 100 ml/hr; Site: right forearm; bp 14:37 Drug: Zosyn (piperacillin-tazobactam) 3.375 grams Route: IVPB; Infused Over: 60 mins; bp Site: right forearm; 15:10 Follow up: IV Status: Completed infusion; IV Intake: 100ml bp Disposition Summary: 09/12/21 15:00 Hospitalization Ordered Hospitalization Status: Inpatient Admission pm1 Location: Telemetry/[facility] (Inpatient) pm1 Condition: Stable pm1 Problem: new pm1 Symptoms: have improved pm1 Bed/Room Type: Standard pm1 Provider: Adi Martinez(09/12/21 15:49) pm1 Room Assignment: [facility](09/12/21 18:56) em1 Diagnosis - Unspecified acute appendicitis pm1 Forms: - Medication Reconciliation Form pm1 - SBAR form pm1 Signatures: Dispatcher [employer] EDMS Romie Cardozo MD MD cha Martinez, Eric em1 Nemesio Heaton NP [employer] pm1 Wayne Payan RN RN jl7 Jeffery Jenkins RN RN bp Corrections: (The following items were deleted from the chart) 15:49 15:00 Emory Lopez pm1 pm1 15:50 14:58 Physician consultation: Kirt Wren MD was called at 14:53, regarding consult, pm1 patient's condition, and will see patient in ED, shortly, would like admission per Dr. Emory Lopez MD pm1 18:56 15:00 pm1 em1
--- NOTE | 2021-09-12 15:00 | ER ---
Nurse's Notes [facility] Name: Lina Murillo Age: 86 yrs Sex: Female : 1935 Arrival Date: 09/12/2021 Time: 12:45 Bed 14 Private MD: Diagnosis: Unspecified acute appendicitis Presentation: 09/12 13:07 Chief complaint: Patient states: Lower abdominal pain started supra pubic area last jl7 night and now is painful on the RLQ, denies N/V/D, denies urinary symptoms. Coronavirus screen: At this time, the client does not indicate any symptoms associated with coronavirus-19. Ebola Screen: No symptoms or risks identified at this time. Initial Sepsis Screen: Does the patient meet any 2 criteria? No. Patient's initial sepsis screen is negative. Does the patient have a suspected source of infection? No. Patient's initial sepsis screen is negative. Risk Assessment: Do you want to hurt yourself or someone else? Patient reports no desire to harm self or others. Onset of symptoms was September 11, 2021. 13:07 Method Of Arrival: Ambulatory jl7 13:07 Acuity: ESTEFANY 3 jl7 Triage Assessment: 13:09 General: Appears in no apparent distress. uncomfortable, Behavior is calm, cooperative, jl7 appropriate for age. Pain: Complains of pain in right lower quadrant. GI: Patient currently denies diarrhea, nausea, vomiting. 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 - Social history:: Smoking status: Patient denies any tobacco usage or history of. Screenin:30 Abuse screen: Denies threats or abuse. Denies injuries from another. Nutritional bp screening: No deficits noted. Tuberculosis screening: No symptoms or risk factors identified. Fall Risk None identified. Assessment: 13:30 General: SEE TRIAGE NOTE. bp 14:38 Reassessment: No changes from previously documented assessment. Patient and/or family bp updated on plan of care and expected duration. Pain level reassessed. SURGERY C/S PENDING. 16:00 Reassessment: PT SEEN BY DR ALVAREZ. OR PENDING. bp 17:21 Reassessment: PT TO OR. bp Vital Signs: 13:07 BP 174 / 92; Pulse 82; Resp 15; Temp 98.6; Pulse Ox 97% ; Weight 63.5 kg; Height 5 ft. jl7 4 in. (162.56 cm); Pain 0/10; 15:00 BP 128 / 83; Pulse 74; Resp 16; Pulse Ox 95% ; bp 17:00 BP 185 / 77; Pulse 74; Resp 16; Pulse Ox 95% ; bp 13:07 Body Mass Index 24.03 (63.50 kg, 162.56 cm) jl7 ED Course: 12:45 Patient arrived in ED. as 12:57 Nemesio Heaton NP is PHCP. pm1 12:57 Romie Cardozo MD is Attending Physician. pm1 13:09 Triage completed. jl7 13:09 Arm band placed on right wrist. jl7 13:20 Jeffery Jenkins, PIEDAD is Primary Nurse. bp 13:30 Patient has correct armband on for positive identification. Bed in low position. Call bp light in reach. Side rails up X2. Adult w/ patient. 13:40 Inserted saline lock: 20 gauge in right forearm, using aseptic technique. Blood bp collected. 13:54 CT Abd/Pelvis - IV Contrast Only In Process Unspecified. EDMS 15:49 Adi Martinez MD is Hospitalizing Provider. pm1 16:11 Chest Single View XRAY In Process Unspecified. EDMS 18:57 No provider procedures requiring assistance completed. Patient admitted, IV remains in jl7 place. intact, No redness/swelling at site. Administered Medications: 13:40 Drug: NS 0.9% 500 ml Route: IV; Rate: bolus; Site: right forearm; bp 15:10 Follow up: IV Status: Completed infusion; IV Intake: 500ml bp 14:37 Drug: NS 0.9% 1000 ml Route: IV; Rate: 100 ml/hr; Site: right forearm; bp 14:37 Drug: Zosyn (piperacillin-tazobactam) 3.375 grams Route: IVPB; Infused Over: 60 mins; bp Site: right forearm; 15:10 Follow up: IV Status: Completed infusion; IV Intake: 100ml bp Intake: 15:10 IV: 100ml; Total: 100ml. bp 15:10 IV: 500ml; Total: 600ml. bp Outcome: 15:00 Decision to Hospitalize by Provider. pm1 18:57 Admitted to OR jl7 18:57 Condition: stable 18:57 Discharge instructions given to patient, Instructed on the need for admit, Demonstrated understanding of instructions. 18:58 Patient left the ED. jl7 Signatures: Dispatcher [employer] Marichuy Gomes Patrick, JESSICA [employer]WAYS CONTROL SPECIALIST pm1 Wayne Payan, PIEDAD RN jl7 Jeffery Jenkins RN RN bp
--- NOTE | 2021-09-12 16:03 | P.HP ---
Certification for Inpatient Patient admitted to: Observation Patient will require the following post-hospital care: None Practitioner: I am a practitioner with admitting privileges, knowledge of patient current condition, hospital course, and medical plan of care. Services: Services provided to patient in accordance with Admission requirements found in Title 42 Section 412.3 of the Code of Federal Regulations Patient History Date of Service: 09/12/21 Reason for admission: Right abdominal pain History of Present Illness: 86-year-old female with past medical history of hypertension, HLD, history of CVA in 2019 with no residual hemiparesis, left carotid artery stenosis but no previous intervention developed sudden onset right mid quadrant abdominal pain radiating to the right lower quadrant since about 7 PM yesterday while she was in bed. Pain was more of a nagging and aching not associated with any nausea or vomiting. Pain was not worse with movement. He initially resolved spontaneously but again started to recall any this morning and became more persistent and increasing in intensity to about 6 out of 10. On arrival in the ED pain has subsided to about 3 out of 10 with rest. She had a CT scan with findings of cholelithiasis as well as 12 mm CBD dilatation of the extra hepatic ducts. She was noted with nonperforated retrocecal appendicitis. She denies a ny previous history of intra-abdominal surgeries. She denies any constipation or diarrhea. There is no fever headache or chills. She has been admitted for acute appendicitis. Allergies No Known Allergies Allergy (Verified 01/19/18 10:40) Home Medications: Bimatoprost [Lumigan] 2.5 ml OP DAILY 12/09/17 carBAMazepine [Carbamazepine] 200 mg PO BID 12/09/17 Vit C/E/Zn/Coppr/Lutein/Zeaxan [Preservision Areds 2 Softgel] 1 each PO BID 01/19/18 - Past Medical/Surgical History Has patient received pneumonia vaccine in the past: No Diabetic: No -: Hypertension -: Hyperlipidemia -: History of CVA -: History of left carotid artery stenosis but no intervention Past Surgical History: Patient denies surgical history - Family History Mother -: Cancer - Social History Smoking Status: Never smoker Smoking therapy provided: No Alcohol use: No CD- Drugs: No Caffeine use: No Place of Residence: Home Review of Systems 10-point ROS is otherwise unremarkable Gastrointestinal: Abdominal Pain Physical Examination - Physical Exam General: Alert, In no apparent distress, Oriented x3, Cooperative HEENT: PERRLA Neck: Supple, 2+ carotid pulse no bruit, JVD not distended Respiratory: Clear to auscultation bilaterally, Normal air movement Cardiovascular: No edema, Normal pulses, Regular rate/rhythm, Normal S1 S2 Gastrointestinal: Normal bowel sounds, Soft and benign, Non-distended, Tenderness (Right lower quadrant, no rebound) Musculoskeletal: No clubbing, No swelling Integumentary: No rashes, No breakdown Neurological: Normal speech, Normal strength at 5/5 x4 extr, Sensation intact, Cranial nerves 3-12 intact - Studies Laboratory Data (last 24 hrs) 09/12/21 13:40: Sodium 136, Potassium 4.0, BUN 11, Creatinine 0.75, Glucose 111 H, Total Bilirubin 0.7, AST 20, ALT 24, Alkaline Phosphatase 111, Lipase 123 09/12/21 13:40: WBC 9.5, Hgb 13.4, Hct 40.3, Plt Count 179 Assessment and Plan - Problems (Diagnosis) (1) Acute appendicitis Current Visit: Yes Status: Acute Discharge Plan: Home Plan to discharge in: 24 Hours - Advance Directives Does patient have a Living Will: Yes Does patient have a Durable POA for Healthcare: Yes - Code Status/Comfort Care Code Status Assessed: Yes Code Status: Full Code Physician Review: Patient Assessed, Agree with Above Assessment and Plan Physician Review Additional Text: CT abdomen/pelvisacute nonperforated retrocecal appendicitis, cholelithiasis, thickening of bladder wall but no evidence of pericholecystic inflammation, 70 m dilatation of the extrahepatic, biliary ducts. Chest x-rayno acute infiltrate, EKGnormal sinus rhythm, no acute ST segment changes Impression Acute appendicitis Asymptomatic cholelithiasis Hypertension History of HLD History of previous CVA with no hemiparesis Plan We will admit today to observation Keep n.p.o. for now Start gentle IV fluid with LR Start empiric antibiotics with Zosyn Will consult surgery for appendectomy Patient cleared for surgery IV morphine as needed pain IV Zofran as needed emesis Subcutaneous Lovenox for DVT prophylaxis Advance directivefull code Resume home medication regimen after reconciliation Dispositionpossible discharge in a.m. after surgery Time Spent Managing Pts Care (In Minutes): 70
[2021-09-12] MEDS ORDERED: ONDANSETRON 4 MG/2 ML VIAL IV PRN (16:05)
[2021-09-12] MEDS ORDERED: MORPHINE 2 MG/ML SYR IV PRN (16:05)
[2021-09-12] MEDS ORDERED: ALBUTEROL 2.5 MG/3 ML NEB SOL NEB PRN (16:05)
[2021-09-12] MEDS ORDERED: HYDRALAZINE HCL 20 MG/ML VIAL IV PRN (16:07)
[2021-09-12] MEDS ORDERED: LORAZEPAM 0.5 MG TABLET PO PRN (16:07)
[2021-09-12] MEDS ORDERED: CEFAZOLIN 1 GM in NA CHLORIDE 0.9% 50 ML IVPB ONE (16:12)
--- NOTE | 2021-09-12 16:44 | RAD REPORT ---
EXAM DESCRIPTION: RAD - Chest Single View - 09/12/2021 4:09 pm CLINICAL HISTORY: Pre-operative COMPARISON: Chest Single View dated 11/25/2018; Chest Single View dated 10/02/2018 FINDINGS: Lines: None. Lungs: No evidence of edema or pneumonia. Pleural: No significant pleural effusions or pneumothorax. Cardiac: The heart size is within normal limits. Bones: No acute fractures. Other: IMPRESSION: No acute cardiopulmonary disease.
[2021-09-12] MEDS ORDERED: PIPER TAZO 2.25 GM in NA CHLORIDE 0.9% 50 ML IV SCH (17:00)
[2021-09-12] MEDS ORDERED: D5 0.9 NS 1,000 ML IV SCH (17:00)
[2021-09-12] MEDS ORDERED: LIDOCAINE 1% MPF 5 ML VIAL ONE (17:13)
[2021-09-12] MEDS ORDERED: propofoL 200 MG/20 ML VIAL IV ONE ×2 (17:13→17:15)
[2021-09-12] MEDS ORDERED: ROCURONIUM 50 MG/5 ML VIAL IV ONE (17:14)
[2021-09-12] MEDS ORDERED: Phenylephrine HCl 10 MG/ML 1 ML VIAL ONE (17:14)
[2021-09-12] MEDS ORDERED: KETOROLAC 30 MG/ML INJ ONE (17:16)
[2021-09-12] MEDS ORDERED: dexAMETHasone 10 MG/ML VIAL ONE (17:16)
[2021-09-12] MEDS ORDERED: ONDANSETRON 4 MG/2 ML VIAL ONE (17:16)
[2021-09-12] MEDS ORDERED: Ringers Lactate 1,000 ML IV ONE (17:29)
[2021-09-12] MEDS ORDERED: FENTANYL CITR 100 MCG/2 ML ONE (17:36)
--- NOTE | 2021-09-12 17:40 | P.CNS ---
Date of Consult: 09/12/21 PC: This 86-year-old female presented to the emergency room with severe right lower quadrant abdominal pain for diagnosis and treatment. HPC: Yesterday evening patient began to experience some abdominal discomfort. This intensified throughout the evening. She says she had a very long and uncomfortable night. This morning she was brought to the emergency room for evaluation. She describes the pain as being severe, hurts when she tries to walk, has not thrown up but does have anorexia. PSHx: NAD PMHx: Hypertension, stroke in the past Social Hx: No known allergies Sys R: No cough, wheeze, shortness of breath. No chest pain or palpitations. Has some urinary frequency and slight incontinence. No change in bowel habit. O/E: Awake alert vital signs are stable HEENT: Within normal limits Chest: Chest movement equal bilaterally Abd: Tender with guarding and rebound in the right lower quadrant [place]: Intact Data: Elevated white cell count, CT scan supports clinical diagnosis of acute appendicitis. Patient also has a very large gallbladder with some gallstones, but patient is asymptomatic at this time. Impression: Acute abdomen with appendicitis Plan: I will take her to the operating room for laparoscopic possible open appendectomy. The risks of this procedure have been discussed. The possibility of bleeding, infection, abscess formation and the need for further surgeries and procedures was discussed. Injury to bowel blood vessels and surrounding structures was outlined. She understands and wants us to proceed. Her daughters are here.
[2021-09-12] MEDS ORDERED: GLYCOPYRROLATE 0.2 MG/ML SYR ONE ×2 (18:18→18:19)
[2021-09-12] MEDS ORDERED: NEOSTIGMINE 1 MG/ML -5 ML ONE (18:19)
[2021-09-12] MEDS ORDERED: HYDRALAZINE HCL 20 MG/ML VIAL ONE (18:47)
--- NOTE | 2021-09-12 18:58 | P.OP ---
Preoperative diagnosis: Acute abdomen with appendicitis Postoperative diagnosis: The same Primary procedure: Laparoscopic appendectomy Other procedure(s): Tap block Anesthesia: General Estimated blood loss: Less than 10 cc Specimen: 1 appendix Operative Technique: The patient was brought to the operating room and placed supine on the table. After the induction of adequate general endotracheal anesthesia the area of the abdomen was prepped with a DuraPrep solution, and she was draped in usual aseptic manner. A subumbilical incision was made. This was brought down through the skin and subcutaneous tissue. The Visiport was now used to enter the peritoneal cavity and created pneumoperitoneum to approximately 12 mmHg. Under direct vision a 5 mm trocar was placed in the lower midline, and another on the right lateral side of the abdomen. The patient was then placed in reverse Trendelenburg. The table was rolled to the left. We were able to visualize the right lower quad rant. We could see an acutely inflamed appendix. Its junction with the cecum was identified. An opening was made into the mesentery of the appendix. The linear stapler was now introduced after converting the 10 mm trocar at the umbilicus to a 12. This was placed across the base of the appendix and fired. A vascular reload allowed us to take down the mesentery of the appendix. The specimen was then placed in an Endo Catch catch and brought out through the umbilical trocar site. We now looked down into the true pelvis. We could see that there was some mild inflammation across the sigmoid colon. The patient was returned to the neutral position on the OR table. On looking up underneath the liver we could see she does have an enormous gallbladder it is not inflamed at this time. Attention was turned towards the anterior abdominal wall. A tap block with 0.25% Marcaine was done bilaterally to help with postoperative analgesia. The umbilical trocar site was now approximated using 2 absorbable sutures placed using the Endo Close. The pneumoperitoneum was collapsed, the trochars removed, and the sutures tied. Bandera were then applied to the skin. At the end of the procedure she was stable and sent to the recovery room. Needle sponge instrument count were correct. No drains were placed. Complications: None Transferred to: Recovery Room Condition: Good
[2021-09-12 19:26] VITALS: O2SAT 95
[2021-09-12] MEDS: HEPARIN 5000 UNIT/ML 1 ML VIAL SQ SCH (21:00)
[2021-09-12] MEDS ORDERED: FAMOTIDINE 20 MG/2 ML VIAL IV SCH (21:00)
[2021-09-12 21:18] VITALS: BMI 24.0
[2021-09-12] MEDS: carBAMazepine 200 MG TAB PO SCH (21:52)
[2021-09-12] MEDS: carvediloL 12.5 MG TAB PO SCH (21:52)
[2021-09-12] MEDS: METRONIDAZOLE 500mg IVPB 500 MG/100 ML BAG IV SCH (21:53)
[2021-09-13] MEDS: METRONIDAZOLE 500mg IVPB 500 MG/100 ML BAG IV SCH ×2 (01:50→08:37)
[2021-09-13] MEDS: carvediloL 12.5 MG TAB PO SCH (06:00)
--- NOTE | 2021-09-13 07:48 | P.PN ---
Subjective Date of Service: 09/13/21 Chief Complaint: Right abdominal pain Subjective: No new changes Physical Examination - Vital Signs Temperature: 97.5 F Blood Pressure: 128/60 Pulse: 57 Respirations: 14 Pulse Ox (%): 95 - Physical Exam General: Alert, Oriented x3 HEENT: Atraumatic, Normocephalic Neck: Supple Respiratory: Normal air movement Cardiovascular: Regular rate/rhythm, Normal S1 S2 Gastrointestinal: Soft and benign - Studies Laboratory Data (last 24 hrs) 09/12/21 13:40: Sodium 136, Potassium 4.0, BUN 11, Creatinine 0.75, Glucose 111 H, Total Bilirubin 0.7, AST 20, ALT 24, Alkaline Phosphatase 111, Lipase 123 09/12/21 13:40: WBC 9.5, Hgb 13.4, Hct 40.3, Plt Count 179 Assessment And Plan Physician Review: Patient Assessed, Agree with Above Assessment and Plan
[2021-09-13] MEDS: HEPARIN 5000 UNIT/ML 1 ML VIAL SQ SCH (07:54)
[2021-09-13] MEDS ORDERED: carvediloL 12.5 MG TAB PO SCH (08:00)
[2021-09-13 08:28] VITALS: BP 173/79; TEMP 98
[2021-09-13] MEDS: carBAMazepine 200 MG TAB PO SCH (08:37)
[2021-09-13] MEDS ORDERED: ASPIRIN EC 81 MG TAB PO SCH (09:00)
--- NOTE | 2021-09-13 09:20 | P.DS ---
Admission Date: 09/12/21 Discharge Date: 09/13/21 Disposition: ROUTINE DISCHARGE Discharge Condition: GOOD Reason for Admission: Right abdominal pain Consultations: General surgery Brief History of Present Illness: 86-year-old female patient who came into the ER with abdominal pain and was found to have acute appendicitis. She had imaging studies that confirmed acute appendicitis and he had urgent intervention by surgical service. Hospital Course: She had a emergent laparoscopic appendectomy and everything went well. She was cleared by surgical service for feeding and she tolerated breakfast well this morning. She will discharge today to follow-up with surgeon and primary care doctor in the coming week. As needed OTC Tylenol for pain control ordered. Vital Signs/Physical Exam: Temp Pulse Resp BP Pulse Ox 98.0 F 59 14 173/79 H 92 09/13/21 08:00 09/13/21 08:00 09/13/21 08:00 09/13/21 08:00 09/13/21 08:00 General: Alert, Oriented x3 HEENT: Atraumatic, Normocephalic Neck: Supple Respiratory: Normal air movement Cardiovascular: Regular rate/rhythm, Normal S1 S2 Gastrointestinal: Soft and benign Neurological: Normal speech Laboratory Data at Discharge: WBC 9.5 K/uL (4.3-10.9) 09/12/21 13:40 Hgb 13.4 g/dL (12.0-15.0) 09/12/21 13:40 Hct 40.3 % (36.0-45.0) 09/12/21 13:40 Plt Count 179 K/uL (152-406) 09/12/21 13:40 Sodium 136 mmol/L (136-145) 09/12/21 13:40 Potassium 4.0 mmol/L (3.5-5.1) 09/12/21 13:40 BUN 11 mg/dL (7-18) 09/12/21 13:40 Creatinine 0.75 mg/dL (0.55-1.3) 09/12/21 13:40 Glucose 111 mg/dL (74-106) H 09/12/21 13:40 Total Bilirubin 0.7 mg/dL (0.2-1.0) 09/12/21 13:40 AST 20 U/L (15-37) 09/12/21 13:40 ALT 24 U/L (12-78) 09/12/21 13:40 Alkaline Phosphatase 111 U/L (45-117) 09/12/21 13:40 Lipase 123 U/L (73-393) 09/12/21 13:40 Home Medications: carBAMazepine [Carbamazepine] 200 mg PO BEDTIME 12/09/17 Vit C/E/Zn/Coppr/Lutein/Zeaxan [Preservision Areds 2 Softgel] 1 each PO DAILY 01/19/18 Aspirin [Aspirin EC 81 MG] 81 mg PO DAILY 09/13/21 Cranberry 1 cap PO DAILY 09/13/21 Cyanocobalamin (Vitamin B-12) [B-12] 1,000 mcg PO DAILY 09/13/21 Docosahexanoic AC/Epa [Fish Oil 1,000 MG CAP] 1,000 mg PO DAILY 09/13/21 Folic Acid 0.4 mg PO DAILY 09/13/21 Losartan Potassium 50 mg PO BID 09/13/21 Lovastatin 40 mg PO BEDTIME 09/13/21 carvediloL [Carvedilol] 12.5 mg PO BID 09/13/21 Diet: AHA Followup: PRASHANTH ALFORD [Primary Care Provider] - Kirt Wren MD [ACTIVE - CAN ADMIT] -
[2021-09-13] MEDS ORDERED: PNEUMOCOCCAL VACCINE 0.5 ML IMVAC ONE (12:00)
[2021-09-13] MEDS ORDERED: FAMOTIDINE 20 MG TAB PO SCH (21:00)
== END 2021-09-13 10:50 | disposition home or self-care (01) ==
LOC: ER 12:41 → ERHOLD 16:05 → 2ND 20:12
PROVIDERS: ADMIT Internal Medicine; ATTEND Internal Medicine Nephrology
PROC: 0DTJ4ZZ Resection of Appendix, Percutaneous Endoscopic Approach (ICD-10-PCS; principal; 2021-09-12 17:30)
DX: K35.80 Unspecified acute appendicitis (principal); K80.20 Calculus of gallbladder without cholecystitis without obstruction; I10 Essential (primary) hypertension; E78.5 Hyperlipidemia, unspecified; I65.22 Occlusion and stenosis of left carotid artery; R35.0 Frequency of micturition; R32 Unspecified urinary incontinence; Z79.82 Long term (current) use of aspirin; Z79.899 Other long term (current) drug therapy; Z86.73 Personal history of transient ischemic attack (TIA), and cerebral infarction without residual deficits; Z20.822 Contact with and (suspected) exposure to COVID-19; Z80.9 Family history of malignant neoplasm, unspecified
CPT/HCPCS: 96365; 96361; 85025; 36415; 82565; 81003; 83690; 80053; 74177; 71045; 99285; 44970; U0003; Q9967; 88304; 93005; G0378; J0360; J1100; J1644; J2370; J2405; J2543; J2704; J2710; J3010; J7040; J7042; J7120